=== PATIENT | male | born 1965 | race Caucasian/White ===

== ENCOUNTER 2019-05-17 00:42 | Emergency (ER) | payer SELFPAY ==
[2019-05-17 01:35] LABS: Protime INR 0.97
[2019-05-17 01:36] LABS: Absolute Lymphocytes (CBC) 2.3 K/uL (0.7-4.9); Basophils % 0.6 % (0-1.3); Hematocrit 42.6 % (39.6-49.0); Lymphocytes % 30.9 % (15.3-44.8); RBC Red Blood Cell Count 4.92 M/uL (4.33-5.43)
[2019-05-17 01:54] LABS: ALT/SGPT 141 U/L (12-78); AST/SGOT 72 U/L (15-37); Albumin 2.9 g/dL (3.4-5.0); Alkaline Phosphatase 89 U/L (45-117); BUN Blood Urea Nitrogen 14 mg/dL (7-18); Bicarbonate 26 mmol/L (21-32); Bilirubin Direct < 0.1 mg/dL (0-0.2); Bilirubin Total 0.3 mg/dL (0.2-1.0); Glucose Level 111 mg/dL (74-106); NT PRO-BNP 21 pg/mL (<125); Potassium 3.9 mmol/L (3.5-5.1); Protein, Total 6.6 g/dL (6.4-8.2); Sodium Level 142 mmol/L (136-145); Troponin (Emerg Dept Use Only) < 0.02 ng/mL (0.0-0.045)
--- NOTE | 2019-05-17 02:15 | ER ---
Nurse's Notes [facility] Name: Farhad Johnson Age: 54 yrs Sex: Male : 1965 Arrival Date: 05/17/2019 Time: 00:50 Bed 17 [employer] MD: Diagnosis: Neoplasm of uncertain behavior of rectum Presentation: 05/17 00:50 Presenting complaint: Patient states: "I am having shortness of breath because my jd3 stomach is hurting so bad. I have also been passing straight blood when I poop.". Transition of care: patient was not received from another setting of care. Onset of symptoms was May 15, 2019. Risk Assessment: Do you want to hurt yourself or someone else? Patient reports no desire to harm self or others. Initial Sepsis Screen: Does the patient meet any 2 criteria? No. Patient's initial sepsis screen is negative. Does the patient have a suspected source of infection? No. Patient's initial sepsis screen is negative. Care prior to arrival: None. 00:50 Method Of Arrival: Wheelchair jd3 00:50 Acuity: CARIDAD 3 jd3 Historical: - Allergies: 00:54 PENICILLINS; jd3 - Home Meds: 00:54 None [Active]; jd3 - PMHx: 00:54 None; jd3 - PSHx: 00:54 None; jd3 - Immunization history:: Adult Immunizations up to date. - Social history:: Smoking status: Patient uses tobacco products, smokes one-half pack cigarettes per day. - Ebola Screening: : Patient negative for fever greater than or equal to 101.5 degrees Fahrenheit, and additional compatible Ebola Virus Disease symptoms. Screenin:55 Abuse screen: Denies threats or abuse. Nutritional screening: No deficits noted. jd3 Tuberculosis screening: No symptoms or risk factors identified. Fall Risk Ambulatory Aid- None/Bed Rest/Nurse Assist (0 pts). Gait- Normal/Bed Rest/Wheelchair (0 pts) Mental Status- Oriented to own ability (0 pts). Total Dumas Fall Scale indicates No Risk (0-24 pts). Assessment: 01:10 General: Appears in no apparent distress. uncomfortable, Behavior is calm, cooperative, jb4 appropriate for age. Pain: Complains of pain in abdomen Pain does not radiate. Pain currently is 10 out of 10 on a pain scale. Quality of pain is described as crampy, Pain began 1 month ago. Neuro: Level of Consciousness is awake, alert, obeys commands, Oriented to person, place, time, situation. Cardiovascular: Patient's skin is warm and dry. Respiratory: Airway is patent Respiratory effort is even, unlabored, Respiratory pattern is regular, tachypnea. GI: Abdomen is round distended, Bowel sounds present X 4 quads. Abd is soft and non tender X 4 quads. Reports bloody stool, Patient currently denies nausea, vomiting. : No deficits noted. No signs and/or symptoms were reported regarding the genitourinary system. EENT: No deficits noted. No signs and/or symptoms were reported regarding the EENT system. Derm: Skin is intact, Skin is pink, warm \\T\\ dry. Musculoskeletal: Circulation, motion, and sensation intact. Range of motion: intact in all extremities. 02:29 Reassessment: Patient appears in no apparent distress at this time. Patient and/or jb4 family updated on plan of care and expected duration. Pain level reassessed. Patient is alert, oriented x 3, equal unlabored respirations, skin warm/dry/pink. PT given Fentynal, waiting for girlfriend to return prior to discharge. Verbalized understanding of d/c and follow up insctructions. Vital Signs: 00:54 BP 135 / 88; Pulse 99; Resp 23 S; Temp 97.9(O); Pulse Ox 97% on R/A; Weight 95.25 kg jd3 (R); Height 6 ft. 0 in. (182.88 cm) (R); Pain 5/10; 02:25 BP 133 / 87; Pulse 83; Resp 19; Pulse Ox 95% on R/A; jb4 00:54 Body Mass Index 28.48 (95.25 kg, 182.88 cm) jd3 ED Course: 00:50 Patient arrived in ED. jd3 00:54 Triage completed. jd3 00:55 Mathew Nuno MD is Attending Physician. 00:55 Arm band placed on. EKG completed in triage. Results shown to MD. jd3 00:55 Patient has correct armband on for positive identification. Bed in low position. Call [facility] light in reach. Side rails up X 1. Adult w/ patient. 01:10 Initial lab(s) drawn, by ks, sent to lab. Inserted saline lock: 20 gauge in right jb4 wrist, using aseptic technique. Blood collected. Missed attempt(s): 20 gauge in right forearm. Bleeding controlled, band aid applied, catheter tip intact. 01:16 Esequiel Go, RN is Primary Nurse. jb4 01:17 Troponin (emerg Dept Use Only) Sent. jb4 01:17 NT PRO-BNP Sent. jb4 01:17 Magnesium Sent. jb4 01:17 PT-INR Sent. jb4 01:17 LFT's Sent. jb4 01:17 CBC with Diff Sent. jb4 01:17 Basic Metabolic Panel Sent. jb4 01:17 XRAY Chest (1 view) Sent. jb4 01:18 X-ray completed. Portable x-ray completed in exam room. Patient tolerated procedure kw well. 01:20 XRAY Chest (1 view) In Process Unspecified. EDMS 01:26 Type And Screen Sent. jb4 02:11 Esequiel Queen MD is Referral Physician. 02:54 No provider procedures requiring assistance completed. IV discontinued, intact, jb4 bleeding controlled, No redness/swelling at site. Pressure dressing applied. Administered Medications: 02:30 Drug: fentaNYL (PF) 25 mcg {Note: Rass score of 1, blood pressure 133/87 prior to [facility] arrival.} Route: IVP; Site: right wrist; 02:56 Follow up: Response: No adverse reaction; Pain is decreased; RASS: Alert and Calm (0) [facility] Outcome: 02:13 Discharge ordered by MD. 02:54 Discharged to home via wheelchair, with significant other. [facility] 02:54 Condition: stable 02:54 Discharge instructions given to patient, significant other, Instructed on discharge instructions, follow up and referral plans. Demonstrated understanding of instructions, follow-up care. 02:57 Patient left the ED. jb4 Signatures: Dispatcher [employer] EDME Candis Singh James, BHAVNA HUGGINS jb4 Mathew Nuno MD MD gs Davies, Jonathon, RN RN jd3 Corrections: (The following items were deleted from the chart) 02:49 02:47 Discharged to home via wheelchair, with significant other, [facility] jb 02:49 02:47 Condition: stable [facility] jb 02:49 02:47 Discharge instructions given to patient, significant other, Instructed on jb4 discharge instructions, follow up and referral plans. Demonstrated understanding of instructions, follow-up care, jb4
--- NOTE | 2019-05-17 02:16 | EDPHYS ---
Physician Documentation [facility] Name: Farhad Johnson Age: 54 yrs Sex: Male : 1965 Arrival Date: 05/17/2019 Time: 00:50 Bed 17 Private MD: ED Physician Mathwe Nuno HPI: 05/17 02:07 This 54 yrs old Male presents to ER via Wheelchair with complaints of rectal bleeding. gs 02:07 The patient presents to the emergency department with bleeding from the rectum/anus, gs that is moderate. Onset: The symptoms/episode began/occurred 2 month(s) ago. Modifying factors: The symptoms are alleviated by nothing, The symptoms are aggravated by nothing. Associate signs and symptoms: Pertinent positives: lower GI bleeding, Pertinent negatives: abdominal pain, constipation, vomiting. The patient has experienced similar episodes in the past, a few times. The patient has not recently seen a physician. Historical: - Allergies: 00:54 PENICILLINS; jd3 - Home Meds: 00:54 None [Active]; jd3 - PMHx: 00:54 None; jd3 - PSHx: 00:54 None; jd3 - Immunization history:: Adult Immunizations up to date. - Social history:: Smoking status: Patient uses tobacco products, smokes one-half pack cigarettes per day. - Ebola Screening: : Patient negative for fever greater than or equal to 101.5 degrees Fahrenheit, and additional compatible Ebola Virus Disease symptoms. ROS: 02:07 All other systems are negative. gs 02:07 Neuro: Positive for weakness, general. gs Exam: 02:07 Constitutional: The patient appears alert, awake. gs 02:07 Head/Face: Normocephalic, atraumatic. Eyes: Pupils equal round and reactive to light, gs extra-ocular motions intact. Lids and lashes normal. Conjunctiva and sclera are non-icteric and not injected. Cornea within normal limits. Periorbital areas with no swelling, redness, or edema. ENT: Nares patent. No nasal discharge, no septal abnormalities noted. Tympanic membranes are normal and external auditory canals are clear. Oropharynx with no redness, swelling, or masses, exudates, or evidence of obstruction, uvula midline. Mucous membranes moist. Neck: Trachea midline, no thyromegaly or masses palpated, and no cervical lymphadenopathy. Supple, full range of motion without nuchal rigidity, or vertebral point tenderness. No Meningismus. Chest/axilla: Normal chest wall appearance and motion. Nontender with no deformity. No lesions are appreciated. Cardiovascular: Regular rate and rhythm with a normal S1 and S2. No gallops, murmurs, or rubs. Normal PMI, no JVD. No pulse deficits. Respiratory: Lungs have equal breath sounds bilaterally, clear to auscultation and percussion. No rales, rhonchi or wheezes noted. No increased work of breathing, no retractions or nasal flaring. Back: No spinal tenderness. No costovertebral tenderness. Full range of motion. Skin: Warm, dry with normal turgor. Normal color with no rashes, no lesions, and no evidence of cellulitis. MS/ Extremity: Pulses equal, no cyanosis. Neurovascular intact. Full, normal range of motion. Neuro: Awake and alert, GCS 15, oriented to person, place, time, and situation. Cranial nerves II-XII grossly intact. Motor strength 5/5 in all extremities. Sensory grossly intact. Cerebellar exam normal. Normal gait. 02:07 Abdomen/GI: Palpation: abdomen is soft and non-tender, in all quadrants, Rectal exam: mass, that is moderate-sized, with tenderness, anterior rectum friable. Vital Signs: 00:54 BP 135 / 88; Pulse 99; Resp 23 S; Temp 97.9(O); Pulse Ox 97% on R/A; Weight 95.25 kg jd3 (R); Height 6 ft. 0 in. (182.88 cm) (R); Pain 5/10; 02:25 BP 133 / 87; Pulse 83; Resp 19; Pulse Ox 95% on R/A; jb4 00:54 Body Mass Index 28.48 (95.25 kg, 182.88 cm) jd3 MDM: 01:28 Patient medically screened. 02:07 Differential diagnosis: hemorrhoids, tumor. Data reviewed: vital signs, nurses notes. gs Counseling: I had a detailed discussion with the patient and/or guardian regarding: the historical points, exam findings, and any diagnostic results supporting the discharge/admit diagnosis, lab results, the need for outpatient follow up, a general surgeon. Response to treatment: the patient's symptoms have mildly improved after treatment, and as a result, I will discharge patient. 05/17 00:57 Order name: Basic Metabolic Panel; Complete Time: 02:00 05/17 00:57 Order name: CBC with Diff; Complete Time: 02:00 05/17 00:57 Order name: LFT's; Complete Time: 02:00 05/17 00:57 Order name: Magnesium; Complete Time: 02:00 05/17 00:57 Order name: NT PRO-BNP; Complete Time: 02:00 05/17 00:57 Order name: PT-INR; Complete Time: 02:00 05/17 00:57 Order name: Troponin (emerg Dept Use Only); Complete Time: 02:00 05/17 00:57 Order name: XRAY Chest (1 view) 05/17 00:57 Order name: EKG; Complete Time: 00:59 05/17 00:57 Order name: Cardiac monitoring; Complete Time: 01:17 05/17 00:57 Order name: EKG - Nurse/Tech; Complete Time: :17 05/17 00:57 Order name: IV Saline Lock; Complete Time: 01:17 05/17 00:57 Order name: Type And Screen 05/17 00:57 Order name: Labs collected and sent; Complete Time: : 05/17 00:57 Order name: O2 Per Protocol; Complete Time: :17 05/17 00:57 Order name: O2 Sat Monitoring; Complete Time: 01:17 gs Administered Medications: 02:30 Drug: fentaNYL (PF) 25 mcg {Note: Rass score of 1, blood pressure 133/87 prior to [facility] arrival.} Route: IVP; Site: right wrist; 02:56 Follow up: Response: No adverse reaction; Pain is decreased; RASS: Alert and Calm (0) [facility] Disposition: 05/17/19 02:13 Discharged to Home. Impression: Neoplasm of uncertain behavior of rectum. - Condition is Stable. - Discharge Instructions: Colonoscopy, Colon Mass, Adult. - Medication Reconciliation Form, Thank You Letter, Antibiotic Education, Prescription Opioid Use form. - Follow up: Esequiel Queen MD; When: 2 - 3 days; Reason: Re-evaluation by your physician. Signatures: Dispatcher [employer] EDNH Esequiel Go RN RN jb4 Mathew Nuno MD MD gs Davies, Jonathon, RN RN jd3 Corrections: (The following items were deleted from the chart) 02:57 02:13 05/17/2019 02:13 Discharged to Home. Impression: Neoplasm of uncertain behavior jb4 of rectum. Condition is Stable. Forms are Medication Reconciliation Form, Thank You Letter, Antibiotic Education, Prescription Opioid Use. Follow up: Esequiel Queen; When: 2 - 3 days; Reason: Re-evaluation by your physician. gs
[2019-05-17] MEDS ORDERED: FENTANYL CITR 100 MCG/2 ML ONE (02:17)
--- NOTE | 2019-05-17 08:27 | RAD REPORT ---
EXAM DESCRIPTION: RAD - Chest Single View - 05/17/2019 1:19 am CLINICAL HISTORY: Shortness of breath, abdominal pain, smoking history COMPARISON: None. TECHNIQUE: AP portable chest image was obtained 0115 hours . FINDINGS: No focal mass or consolidation. Lung markings at each base are minimally prominent with th e baseline for the patient unknown. Heart and vasculature are normal. No measurable pleural effusion and no pneumothorax. No acute bony abnormality seen. No acute aortic findings suspected. IMPRESSION: No focal lung parenchymal process seen. Mild prominence of the lung markings at each base probably baseline for the patient.
--- NOTE | 2019-05-17 11:36 | EKG ---
Test Date: 2019-05-17 Test Time: 00:51:33 Apple Turner: EDNA MEASUREMENT RESULTS: Intervals: Rate: 102 FL: 142 QRSD: 80 QT: 332 QTc: 432 [place]: P: 58 FL: 142 QRS: 74 T: 58 INTERPRETIVE STATEMENTS: Sinus tachycardia Otherwise normal ECG No previous ECG available for comparison Electronically Signed On 05-17-19 11:34:37 CDT by Jeancarlos Us
== END 2019-05-17 02:57 | disposition home or self-care (01) ==
LOC: ER 00:42
DX: D37.5 Neoplasm of uncertain behavior of rectum (principal); Z88.0 Allergy status to penicillin; F17.210 Nicotine dependence, cigarettes, uncomplicated
CPT/HCPCS: 36415; 71045; 80048; 80076; 83735; 83880; 84484; 85025; 85610; 86850; 86900; 86901; 93005; 96374; 99284; J3010

== ENCOUNTER 2019-08-16 08:20 | Day surgery (SDC) | payer OTHER ==
--- OUTSIDE RECORDS SUMMARY | 2019-08-16 08:23 | XMS REPORT ---
:1965 [facility] Address [address] [place] [address] Dr. Giang. [address] [place] [address] Care Team Providers Name Role Phone Unavailable Unavailable Unavailable Problems This patient has no known problems. Allergies, Adverse Reactions, Alerts This patient has no known allergies or adverse reactions. Medications This patient has no known medications.
[2019-08-16] MEDS ORDERED: CIPROFLOXACIN 400mg IV 400 MG/200 ML BAG IV ONE (08:57)
[2019-08-16] MEDS ORDERED: Ringers Lactate 1,000 ML IV ONE (08:57)
[2019-08-16 09:01] LABS: Absolute Lymphocytes (CBC) 2.5 K/uL (0.7-4.9); Basophils % 0.5 % (0-1.3); Lymphocytes % 32.6 % (15.3-44.8); MPV 7.5 fL (7.6-11.3); RBC Red Blood Cell Count 4.94 M/uL (4.33-5.43)
[2019-08-16 09:08] LABS: Potassium 3.9 mmol/L (3.5-5.1)
[2019-08-16] MEDS ORDERED: NS 0.9% VIAL 20 ML ONE (09:23)
[2019-08-16] MEDS: LIDOCAINE 1% MPF 30 ML VIAL ONE ×2 (09:31→10:11)
[2019-08-16] MEDS: HEPARIN 5000 UNIT/ML 1 ML VIAL ONE ×2 (09:32→10:45)
[2019-08-16] MEDS ORDERED: FENTANYL CITR 100 MCG/2 ML ONE (09:58)
[2019-08-16] MEDS ORDERED: LIDOCAINE 2% MPF 5 ML VIAL ONE (09:58)
[2019-08-16] MEDS ORDERED: MIDAZOLAM HCL 2 MG/2 ML INJ ONE (09:58)
[2019-08-16] MEDS ORDERED: PROPOFOL 200 MG/20 ML VIAL IV ONE (09:58)
[2019-08-16] MEDS ORDERED: NA CIT/CITRIC AC 30 ML ORAL UDC ONE (10:17)
--- NOTE | 2019-08-16 11:12 | RAD REPORT ---
EXAM DESCRIPTION: RAD - Fluoroscopy <1 Hour - 08/16/2019 10:59 am CLINICAL HISTORY: Venous catheter insertion. PORT A CATH COMPARISON: <Comparisons> FINDINGS: Fluoroscopic imaging is submitted from placement of a venous catheter. Details of the pro cedure not available. Fluoroscopy time: 0.4 minutes
--- NOTE | 2019-08-16 11:26 | RAD REPORT ---
EXAM DESCRIPTION: RAD - Chest Single View - 08/16/2019 11:19 am CLINICAL HISTORY: s/p port a cath placement Chest pain. COMPARISON: Chest Single View dated 05/17/2019 FINDINGS: Portable technique limits examination quality. Right-sided port catheter its tip in the SVC. No pneumothorax present. The heart is normal in size. M ild interstitial lung opacities again seen, unchanged. IMPRESSION: No postprocedure pneumothorax.
[2019-08-16] MEDS ORDERED: HYDROCODONE/APAP 7.5/325 MG TAB ONE (11:54)
[2019-08-16] MEDS ORDERED: HYDROCODONE/APAP 7.5/325 MG TAB PO ONE (11:54)
[2019-08-16 13:57] VITALS: BP 121/82; TEMP 98.2; O2SAT 95
--- NOTE | 2019-08-16 21:22 | OP ---
Date of Procedure: 08/16/2019 Surgeon: Jaswinder Galvin MD Pigment Mixer: MARCIE Harris. Preoperative Diagnosis: Rectal cancer. Postoperative Diagnosis: Rectal cancer. Procedure: Placement of right IJ Port-A-Cath and interpretation of intraoperative fluoroscopy. Estimated Blood Loss: Minimal. Specimen: None. Findings: Normal anatomy. Anesthesia: MAC. Complications: None. Disposition: The patient tolerated the procedure in stable condition, taken to Recovery in good gene ral condition Procedure In Detail: Patient was brought to the OR and placed in supine position. MAC anesthesia wa s begun. Patient was prepped and draped in usual sterile fashion. Lidocaine 1% was infiltrated loca lly. An 18-gauge needle was used to access the right IJ vein. Guidewire was passed. Position was c onfirmed with fluoroscopy. A 3 cm incision made on the right anterior chest. Subcutaneous tissue di vided, pocket created. Tunneling device was used to tunnel the catheter between the 2 wounds. Seldi nger technique was used and tip of the catheter was placed in the SVC under fluoroscopy. Cut to appr opriate size, attached to the Port-A-Cath device. Port-A-Cath device was attached to the subcutaneou s tissue with 3-0 Vicryl. Catheter flushed with heparin, packed with heparin with good blood flow an d then 3-0 chromic used to approximate the subcutaneous tissue and close the skin. Sterile dressing was applied. Patient was awakened taken to Recovery in good general condition. Chest x-ray has been ordered. If okay, the patient will be discharged to home. Disposition: Home. Condition: Stable. Discharge Instructions: Resume home medications and diet. Activity as tolerated. No heavy lifting. Remove outer dressing in 2 days. Shower. Keep Steri-Strips on at all times. Follow up in my offi ce in 2 weeks. Follow up in the [facility]. Call for appointment. Tylenol No. 3 one tablet p.o. q.4 p.r.n. pain. /MODL Voice ID: [id number] Report ID: [id number]
== END 2019-08-16 12:17 | disposition home or self-care (01) ==
LOC: OR 08:20
PROVIDERS: ATTEND Surgery
PROC: 0JH60WZ Insertion of Totally Implantable Vascular Access Device into Chest Subcutaneous Tissue and Fascia, Open Approach (ICD-10-PCS; principal; 2019-08-16 10:30)
DX: C20 Malignant neoplasm of rectum (principal); F17.200 Nicotine dependence, unspecified, uncomplicated; Z88.0 Allergy status to penicillin
CPT/HCPCS: 85025; 80048; 36415; 71045; 76000; 36561; J2704; J1644 ×2; J2250; J3010; J7120; J0744; C1788

== ENCOUNTER 2020-08-05 11:47 | Emergency (ER) | payer OTHER ==
--- OUTSIDE RECORDS SUMMARY | 2020-08-05 11:50 | XMS REPORT | Continuity of Care Document ---
:1965 Author Organization [facility] Address 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 Procedures This patient has no known procedures. Encounters Start End Encounter Admission Attending Care Care Encounter Source Date/Time Date/Time Type Type Clinicians Facility Department ID 2020-02-13 2020-02-13 Zohaib MORALES [id number] 00:00:00 00:00:00 Only Unassigned, SANDEEP [id number] [place] [facility] [id number] 2019-11-26 2019-11-26 [facility] [id number] 11:00:00 11:00:00 t [facility] s [facility] Medicine Medicine Outpati ent Clinics 2019-07-30 2019-07-30 [facility] PERRI Black [id number] 07:46:52 23:59:00 Encounter lBas Burt [id number] [facility] [id number] 2019-07-12 2019[id number] 07:42:39 23:59:00 Encounter Blas Burt [id number] [facility] [id number] 2019-06-13 2019-06-13 Patient GIRISH Rodríguez [id number] 00:00:00 00:00:00 Outreach Taran Brooke [facility] [id number] [facility] [id number] 2019-06-08 2019-06-08 Office Yunior [facility] [id number] 14:48:52 15:03:52 Visit [facility] [id number] [facility] [id number] [facility] [id number] [facility] 408 Results This patient has no known results.
[2020-08-05] MEDS ORDERED: MORPHINE 4 MG/ML SYR ONE (13:08)
[2020-08-05] MEDS ORDERED: dexAMETHasone 4 MG/ML VIAL ONE (13:08)
--- NOTE | 2020-08-05 13:11 | RAD REPORT ---
EXAM DESCRIPTION: CT - Stone Protocol - 08/05/2020 12:46 pm CLINICAL HISTORY: right lower back/flank pain COMPARISON: No comparisons TECHNIQUE: Axial 3 mm thick images were obtained without oral or IV contrast. The [id number] span s the entirety of the system including uppermost abdomen and lung bases. All CT scans are performed using dose optimization technique as appropriate and may include automated exposure control or mA/KV adjustment according to patient size. FINDINGS: No hydronephrosis is present and no obstructing ureteral calculi. Patient has punctate tahir ateral calyx calculi under 3 mm in size. There is a 7 millimeter calcification right kidney that appe ars to be within the parenchyma and not at risk of obstruction. No suspicious renal masses. Isodense masses and pyelonephritis are not excluded on a stone protocol CT scan. No significant adrenal findin g. No urinary bladder suspicious finding. Imaged portions of the liver, spleen and pancreas show no suspicious findings on non-contrast imaging . No gallbladder or biliary tree abnormality identified. Moderate stool volume seen throughout most of the colon. Appendix is normal. No acute GI process iden tifiable. No mass or bulky lymphadenopathy. Small to moderate hiatal hernia is present with fat an approximatel y 15% of the stomach intrathoracic. A small fat only umbilical hernia present. Patient has bilateral fat only inguinal hernias. No free air, free fluid or inflammatory stranding. Disc and bony degenerative changes are present in the lower lumbar spine. No destructive process. IMPRESSION: No hydronephrosis, obstructing calculus or acute finding. Bilateral nonobstructing calyx calculi. Isodense masses and pyelonephritis are not excluded on stone protocol technique. Bilateral fat only inguinal hernias, small to moderate hiatal hernia and small fat only umbilical her rachel. No active process at the hernia sites.
--- NOTE | 2020-08-05 13:55 | EDPHYS ---
Physician Documentation [facility] Name: Farhad Johnson Age: 55 yrs Sex: Male : 1965 Arrival Date: 08/05/2020 Time: 11:49 Bed 14 Private MD: ED Physician Yogi Bethea HPI: 08/05 12:22 This 55 yrs old Male presents to ER via Ambulatory with complaints of Back cp Pain. 12:22 The patient presents with pain that is acute, with no known mechanism of injury. The cp symptoms are located in the right mid back and right low back. Onset: The symptoms/episode began/occurred yesterday. The pain radiates to the right leg. Associated signs and symptoms: Pertinent positives: numbness, Pertinent negatives: abdominal pain, chest pain, incontinence, urinary retention, weakness, saddle anesthesia. Historical: - Allergies: 11:54 PENICILLINS; ll1 - PMHx: 11:54 colon CA; ll1 - PSHx: 11:54 None; ll1 - Immunization history:: Flu vaccine is not up to date. - Social history:: Smoking status: Patient reports the use of cigarette tobacco products, smokes one-half pack cigarettes per day. ROS: 12:30 Back: Positive for pain at rest, pain with movement, of the right mid back and right cp low back. 12:30 Eyes: Negative for injury, pain, redness, and discharge. cp 12:30 Constitutional: Negative for body aches, chills, fever, poor PO intake. 12:30 Neck: Negative for pain with movement, pain at rest, stiffness. 12:30 Cardiovascular: Negative for chest pain, palpitations. 12:30 Respiratory: Negative for cough, shortness of breath, wheezing. 12:30 Abdomen/GI: Negative for abdominal pain, nausea, vomiting, and diarrhea, constipation, black/tarry stool, rectal bleeding, bowel incontinence. 12:30 : Negative for urinary symptoms, bladder incontinence, testicular pain 12:30 Neuro: Negative for altered mental status, dizziness, headache, weakness, saddle anesthesia. 12:30 All other systems are negative. Exam: 12:35 Constitutional: The patient appears in no acute distress, alert, awake, non-toxic, well cp developed, well nourished, uncomfortable. 12:35 Head/Face: Normocephalic, atraumatic. cp 12:35 Eyes: Periorbital structures: appear normal, Conjunctiva: normal, no exudate, no cp injection, Sclera: no appreciated abnormality, Lids and lashes: appear normal, bilaterally. 12:35 ENT: External ear(s): are unremarkable, Nose: is normal, Mouth: Lips: moist, Oral mucosa: moist, Posterior pharynx: Airway: no evidence of obstruction, patent. 12:35 Neck: ROM/movement: is normal, is supple, without pain, no range of motions limitations. 12:35 Chest/axilla: Inspection: normal, Palpation: is normal, no crepitus, no tenderness. 12:35 Cardiovascular: Rate: normal. 12:35 Respiratory: the patient does not display signs of respiratory distress, Respirations: normal, no use of accessory muscles, no retractions, labored breathing, is not present, Breath sounds: are clear throughout, no decreased breath sounds. 12:35 Abdomen/GI: Exam negative for discomfort, distension, guarding, Inspection: abdomen appears normal. 12:35 Back: pain, that is moderate, of the right mid back and right low back, ROM is painful, with all movement. 12:35 Skin: no rash present. 12:35 Neuro: Orientation: to person, place \T\ time. Mentation: is normal, Motor: moves all fours, strength is normal, Sensation: numbness, that is mild, of the right lateral upper leg, Gait: is steady, Deep tendon reflexes are 2+ (normal) in the right patellar, right Achilles, left patellar and left Achilles. Vital Signs: 11:54 BP 156 / 98; Pulse 87; Resp 18; Temp 98.2; Pulse Ox 92% ; Weight 106.59 kg; Height 6 ll1 ft. 0 in. (182.88 cm); Pain 10/10; 13:00 BP 148 / 103; Pulse 78; Resp 18; Pulse Ox 93% ; Pain 10/10; jl7 14:00 BP 141 / 92; Pulse 78; Resp 16 S; Pulse Ox 97% on R/A; aa5 11:54 Body Mass Index 31.87 (106.59 kg, 182.88 cm) ll1 MDM: 12:15 Patient medically screened. cp 13:54 Data reviewed: vital signs, nurses notes, radiologic studies, CT scan. cp 13:54 Differential diagnosis: ruptured disc, vertebral fracture, sciatica, spinal stenosis, cp cauda equina. Counseling: I had a detailed discussion with the patient and/or guardian regarding: the historical points, exam findings, and any diagnostic results supporting the discharge/admit diagnosis, radiology results, the need for outpatient follow up, a family practitioner, to return to the emergency department if symptoms worsen or persist or if there are any questions or concerns that arise at home. ED course: VSS. Pain markedly improved. Will discharge to home for continued monitoring. 08/05 12:22 Order name: CT Stone Protocol; Complete Time: 13:36 cp 08/05 12:22 Order name: IV; Complete Time: 13:10 cp Administered Medications: 13:05 Drug: morphine 4 mg Route: IVP; Site: left hand; jl7 14:13 Follow up: Response: No adverse reaction; Pain is decreased aa5 13:07 Drug: Decadron - Dexamethasone 10 mg Route: IVP; Site: left hand; jl7 14:13 Follow up: Response: No adverse reaction; Pain is decreased aa5 Disposition: 15:27 Co-signature as Attending Physician, Yogi Bethea MD. rn Disposition: 08/05/20 13:55 Discharged to Home. Impression: Low back pain, Radiculopathy, lumbar region. - Condition is Stable. - Discharge Instructions: Back Pain, Adult, Lumbosacral Radiculopathy, Back Exercises. - Prescriptions for Tylenol- Codeine #3 300-30 mg Oral Tablet - take 2 tablets by ORAL route every 6 hours As needed; 20 tablet. Medrol (Emmanuel) 4 mg Oral Tablets, Dose Pack - take 1 tablet by ORAL route as directed - follow package instructions; 1 packet. orphenadrine citrate 100 mg Oral Tablet Sustained Release - take 1 tablet by ORAL route 2 times per day As needed; 20 tablet. - Medication Reconciliation Form, Thank You Letter, Antibiotic Education, Prescription Opioid Use form. - Follow up: Private Physician; When: 2 - 3 days; Reason: Recheck today's complaints. - Problem is new. - Symptoms have improved. Signatures: Dispatcher [employer] EDYogi Castillo MD MD rn Calderon, Audri RN RN aa5 Ryan Lozano PA PA cp Leal, Jahala, RN RN jl7 Toirbio Chambers RN RN ll1 Corrections: (The following items were deleted from the chart) 14:13 12:22 Urine Dipstick-Ancillary ordered. cp aa5 14:13 13:55 08/05/2020 13:55 Discharged to Home. Impression: Low back pain; Radiculopathy, aa5 lumbar region. Condition is Stable. Forms are Medication Reconciliation Form, Thank You Letter, Antibiotic Education, Prescription Opioid Use. Follow up: Private Physician; When: 2 - 3 days; Reason: Recheck today's complaints. Problem is new. Symptoms have improved. cp
--- NOTE | 2020-08-05 13:55 | ER ---
Nurse's Notes [facility] Name: Farhad Johnson Age: 55 yrs Sex: Male : 1965 Arrival Date: 08/05/2020 Time: 11:49 Bed 14 Private MD: Diagnosis: Low back pain;Radiculopathy, lumbar region Presentation: 08/05 11:54 Chief complaint: Patient states: Noticed right outer thigh feels numb for 1 week. Right ll1 lower back pain that radiates down right leg for 2 days. No trauma or falls, just normal lifting. Coronavirus screen: Client denies travel out of the [place] in the last 14 days. At this time, the client does not indicate any symptoms associated with coronavirus-19. Ebola Screen: Patient denies travel to an Ebola-affected area in the 21 days before illness onset. Initial Sepsis Screen: Does the patient meet any 2 criteria? No. Patient's initial sepsis screen is negative. Does the patient have a suspected source of infection? Yes: Bone or joint infection. Risk Assessment: Do you want to hurt yourself or someone else? Patient reports no desire to harm self or others. Onset of symptoms was July 30, 2020. 11:54 Method Of Arrival: Ambulatory ll1 11:54 Acuity: CARIDAD 3 ll1 Historical: - Allergies: 11:54 PENICILLINS; ll1 - PMHx: 11:54 colon CA; ll1 - PSHx: 11:54 None; ll1 - Immunization history:: Flu vaccine is not up to date. - Social history:: Smoking status: Patient reports the use of cigarette tobacco products, smokes one-half pack cigarettes per day. Screenin:14 Abuse screen: Denies threats or abuse. Denies injuries from another. Nutritional jl7 screening: No deficits noted. Tuberculosis screening: No symptoms or risk factors identified. Fall Risk IV access (20 points). Total Dumas Fall Scale indicates No Risk (0-24 pts). Assessment: 12:55 General: Appears in no apparent distress. uncomfortable, Behavior is calm, cooperative, jl7 appropriate for age. Pain: Complains of pain in right low back Pain radiates to right leg Pain currently is 10 out of 10 on a pain scale. Neuro: Level of Consciousness is awake, alert, obeys commands, Oriented to person, place, time, situation. Cardiovascular: Patient's skin is warm and dry. Respiratory: Airway is patent Respiratory effort is even, unlabored, Respiratory pattern is regular, symmetrical. GI: Abdomen is round non-distended. Derm: Skin is pink, warm \\T\\ dry. Musculoskeletal: Reports pain in right low back. 13:52 Reassessment: Pt reports decreased urine output since being dx with rectal cancer, jl7 unable to provide urine sample at this time. Pain is decreased, states "I feel much better." Pain rated 2/10 at this time. ERP notified. 13:54 Reassessment: ERP at bedside discussing results and POC. jl7 14:10 Reassessment: Patient is alert, oriented x 3, equal unlabored respirations, skin aa5 warm/dry/pink. Patient states feeling better. Vital Signs: 11:54 BP 156 / 98; Pulse 87; Resp 18; Temp 98.2; Pulse Ox 92% ; Weight 106.59 kg; Height 6 ll1 ft. 0 in. (182.88 cm); Pain 10/10; 13:00 BP 148 / 103; Pulse 78; Resp 18; Pulse Ox 93% ; Pain 10/10; jl7 14:00 BP 141 / 92; Pulse 78; Resp 16 S; Pulse Ox 97% on R/A; aa5 11:54 Body Mass Index 31.87 (106.59 kg, 182.88 cm) ll1 ED Course: 10:00 Inserted saline lock: 20 gauge in left hand, using aseptic technique. jl7 11:49 Patient arrived in ED. ds1 11:54 Arm band placed on. ll1 11:56 Triage completed. ll1 12:14 Ryan Lozano PA is PHCP. cp 12:14 Yogi Bethea MD is Attending Physician. cp 12:26 Inés Begum RN is Primary Nurse. jl7 12:45 CT completed. Patient tolerated procedure well. Patient moved to CT via wheelchair. Patient moved back from CT. 12:46 CT Stone Protocol In Process Unspecified. EDMS 13:14 Patient has correct armband on for positive identification. Bed in low position. Call jl7 light in reach. Side rails up X 1. Pulse ox on. Sitter at bedside. 14:10 No provider procedures requiring assistance completed. IV discontinued, intact, aa5 bleeding controlled, No redness/swelling at site. Pressure dressing applied. Administered Medications: 13:05 Drug: morphine 4 mg Route: IVP; Site: left hand; jl7 14:13 Follow up: Response: No adverse reaction; Pain is decreased aa5 13:07 Drug: Decadron - Dexamethasone 10 mg Route: IVP; Site: left hand; jl7 14:13 Follow up: Response: No adverse reaction; Pain is decreased aa5 Outcome: 13:55 Discharge ordered by . bi 14:10 Discharged to home ambulatory, with significant other. aa5 14:10 Condition: improved 14:10 Discharge instructions given to patient, Instructed on discharge instructions, follow up and referral plans. medication usage, Demonstrated understanding of instructions, follow-up care, medications, Prescriptions given X 3. 14:13 Patient left the ED. aa5 Signatures: Dispatcher [employer] EDPA Ximena Ward ds1 Kenyatta Tse, RN RN aa5 Mali Rodriguez Corey, PA PA cp Leal, Jahala, RN RN jl7 Toribio Chambers RN RN ll1
[2020-08-05 14:59] VITALS: TEMP 98.2
[2020-08-05 15:01] VITALS: BP 148/103; O2SAT 93
== END 2020-08-05 14:13 | disposition home or self-care (01) ==
LOC: ER 11:47
DX: M54.16 Radiculopathy, lumbar region (principal); F17.210 Nicotine dependence, cigarettes, uncomplicated; Z88.0 Allergy status to penicillin; Z85.038 Personal history of other malignant neoplasm of large intestine
CPT/HCPCS: 76377; 74176; 96375; 96374; 99285; J1100

== ENCOUNTER 2020-08-06 06:30 | Emergency (ER) | payer OTHER ==
--- OUTSIDE RECORDS SUMMARY | 2020-08-06 06:31 | XMS REPORT | Continuity of Care Document ---
:1965 Author Organization [facility] t Address [address] [place] [address] Care Team Providers Name Role Phone Doctor [...] [facility] Allergies, Adverse Reactions, Alerts Allergy Allergy Status Severity Reaction(s) Onset Inactive Treating Comm ents Source Name Type Date Date Clinician PCN Adverse Active swelliong [facility] Medications This patient has no known medications. Procedures This patient has no known procedures. Encounters Start End Encounter Admission Attending Care Care Encounter Source Date/Time Date/Time Type Type Clinicians Facility Department ID 2020-02-13 2020-02-13 Zohaib MORAELS [id number] 00:00:00 00:00:00 Only Unassigned, SANDEEP [id number] [place] [facility] [id number] 2019-11-26 2019-11-26 [facility] [id number] [address] 11:00:00 11:00:00 t [facility] s [facility] Medicine Medicine Outpati ent Clinics 2019-07-30 2019-07-30 [facility] PERRI Black [id number] 07:46:52 23:59:00 Encounter Blas Burt [id number] [facility] [id number] 2019-07-12 2019-07-12 [facility] [id number] 07:42:39 23:59:00 Encounter Blas Burt [id number] [facility] [id number] 2019-06-13 2019-06-13 Patient GIRISH Rodríguez [id number] 00:00:00 00:00:00 Outreach Taran Brooke [facility] [id number] [facility] [id number] 2019-06-08 2019-06-08 Office Yunior [facility] [id number] 14:48:52 15:03:52 Visit [facility] [id number] [facility] [id number] [facility] [id number] [facility] 408 Results This patient has no known results.
[2020-08-06 06:56] LABS: Absolute Lymphocytes (CBC) 0.8 K/uL (0.7-4.9); Basophils % 0.8 % (0-1.3); Hematocrit 43.6 % (39.6-49.0); Lymphocytes % 8.5 % (15.3-44.8); MPV 7.6 fL (7.6-11.3)
[2020-08-06 07:02] LABS: Protime INR 1.01
--- NOTE | 2020-08-06 07:15 | RAD REPORT ---
EXAM DESCRIPTION: RAD - Chest Single View - 08/06/2020 6:51 am CLINICAL HISTORY: CHEST PAIN COMPARISON: August 2019 TECHNIQUE: AP portable chest image was obtained 08/06/2020 6:51 am . FINDINGS: Lung volumes are low. Right hemithorax is clear. Large air-filled cystic cavity in the med ial left upper lung field is visually more evident but may not actually have enlarged. Lower left lj g field is clear of acute finding. Heart and vasculature are normal. No measurable pleural effusion a nd no pneumothorax. No acute bony abnormality seen. No acute aortic findings suspected. IMPRESSION: No acute cardiopulmonary process. Air-filled cystic cavity medial left apex is more evident. This may be technical or represent a sligh t enlargement from prior imaging. This is not suspected to be new.
[2020-08-06 07:16] LABS: ALT/SGPT 27 U/L (12-78); AST/SGOT 15 U/L (15-37); Albumin 3.6 g/dL (3.4-5.0); Alkaline Phosphatase 87 U/L (45-117); BUN Blood Urea Nitrogen 20 mg/dL (7-18); Bicarbonate 24 mmol/L (21-32); Bilirubin Direct 0.2 mg/dL (0-0.2); Bilirubin Total 0.8 mg/dL (0.2-1.0); Glucose Level 115 mg/dL (74-106); Lipase 95 U/L (73-393); Potassium 4.3 mmol/L (3.5-5.1); Protein, Total 8.1 g/dL (6.4-8.2); Sodium Level 140 mmol/L (136-145); Troponin (Emerg Dept Use Only) < 0.02 ng/mL (0.0-0.045)
--- NOTE | 2020-08-06 07:45 | RAD REPORT ---
EXAM DESCRIPTION: CT - Angio Aorta For Dissection - 08/06/2020 7:24 am CLINICAL HISTORY: back pain, HTN;Chest pain COMPARISON: None. TECHNIQUE: Dynamically enhanced 3 mm thick images of the chest, abdomen, and upper pelvis were obtai keith during administration of approximately 150mL Isovue 370 IV contrast. Sagittal and coronal reconst ruction images were generated using MIP and reviewed. Exam utilizes a protocol to evaluate entire cou rse of the aorta. All CT scans are performed using dose optimization technique as appropriate and may include automated exposure control or mA/KV adjustment according to patient size. FINDINGS: Aorta is normal in diameter with no dissection or other acute aortic findings. Infrarenal aortic calcifications are present minimal in degree. Reconstruction images show no significant findin gs. No pulmonary artery abnormality. No cardiomegaly, pericardial thickening or pericardial effusion. No acute infiltrate or mass. No interstitial pulmonary edema of any significant degree. Patient has l arge air-filled thin-walled cystic cavities filling much of the left upper lobe from hilum to apex. N o associated mass. Minimal right apical cystic cavities present. There are scattered emphysema change s in the upper lung william. No pleural thickening, pleural effusion or pneumothorax. No abnormal mediastinal or hilar mass or lymphadenopathy seen. No chest wall mass or abnormal axillar y lymphadenopathy. Celiac, SMA and renal arteries show no suspicious findings. Inferior mesenteric artery is patent. Pat ient has a hiatal hernia present with approximately 15-20% of the stomach intrathoracic. Patient also has a small fat only umbilical hernia and bilateral fat filled inguinal hernias right greater than l eft. Solid abdominal viscera and bowel show no significant findings. No mass or abnormal lymphadeno keyla. No free air, free fluid or inflammatory stranding. No urinary bladder abnormality. IMPRESSION: Negative CT scan of the aorta. Large air-filled cystic cavities occupying much of the left upper lobe and to a much lesser degree in the apex of the right upper lobe. Scattered bulla and bleb in the upper and mid lung william. As detailed above, no acute or active chest, abdomen or pelvis process identifiable.
--- NOTE | 2020-08-06 07:59 | EDPHYS ---
Physician Documentation [facility] Name: Farhad Johnson Age: 55 yrs Sex: Male : 1965 Arrival Date: 08/06/2020 Time: 06:32 Bed 7 Private MD: ED Physician Yogi Bethea HPI: 08/06 06:47 This 55 yrs old Male presents to ER via EMS with complaints of headache, sob, rn Chest Pain. 06:47 The patient describes the headache as aching. Onset: The symptoms/episode rn began/occurred yesterday. Severity of symptoms: At its worst the pain was moderate, in the emergency department the pain has improved. The symptoms are alleviated by nothing. the symptoms are aggravated by nothing. The patient has not experienced similar symptoms in the past. Reports seen in ER yesterday for lower back pain that shoots down right leg, told pinched nerve, no recent injury. Given morphine yesterday, reports immediately began to feel headache, went home, noted blood pressure was high this AM, states girlfriend "panicked" and called 911. Reports headache is worse than chest pain/sob, but feels like is breathing differently. + smoker, does not feel sick/ill. No sick contacts. + dry cough. No hemoptysis. No hx of dvt/pe. . 06:48 The patient complains of pain to the top of head. rn Historical: - Allergies: 06:40 PENICILLINS; jb4 - Home Meds: 06:40 None [Active]; jb4 - PMHx: 06:40 COLON CA; jb4 - PSHx: 06:40 None; jb4 - Immunization history:: Adult Immunizations up to date. - Social history:: Smoking status: Patient reports the use of cigarette tobacco products, smokes one-half pack cigarettes per day, Patient uses street drugs, marijuana, Patient/guardian denies using alcohol. - Family history:: not pertinent. - Hospitalizations: : No recent hospitalization is reported. ROS: 06:47 Constitutional: Negative for fever, chills, and weight loss, Eyes: Negative for injury, rn pain, redness, and discharge, Neck: Negative for injury, pain, and swelling, Cardiovascular: Negative for palpitations, and edema, Respiratory: Negative for wheezing Abdomen/GI: Negative for abdominal pain, nausea, vomiting, diarrhea, and constipation, Back: + lower back pain MS/Extremity: Negative for injury and deformity, Skin: Negative for injury, rash, and discoloration, Neuro: Negative for headache, weakness, numbness, tingling, and seizure. Exam: 06:47 Constitutional: This is a well developed, well nourished patient who is awake, alert, rn and in no acute distress. Head/Face: Normocephalic, atraumatic. Eyes: Pupils equal round and reactive to light Cardiovascular: Regular rate and rhythm. No pulse deficits. Respiratory: Speaking full sentences. No increased work of breathing, no retractions or nasal flaring. Abdomen/GI: soft, non-tender Skin: Warm, dry MS/ Extremity: Pulses equal, no cyanosis. Neurovascular intact. Full, normal range of motion. Equal circumference. Neuro: Awake and alert, GCS 15, oriented to person, place, time, and situation. Cranial nerves II-XII grossly intact. Motor strength 5/5 in all extremities. Sensory grossly intact. Cerebellar exam normal. 06:51 ECG was reviewed by the Attending Physician. rn Vital Signs: 06:35 BP 157 / 94; Pulse 94; Resp 15; Pulse Ox 96% on R/A; Weight 106.59 kg (R); Height 6 ft. jb4 0 in. (182.88 cm) (R); Pain 0/10; 07:43 BP 130 / 90; Pulse 90; Resp 16; Temp 98.9(TE); Pulse Ox 95% on R/A; mh5 06:35 Body Mass Index 31.87 (106.59 kg, 182.88 cm) jb4 Brigette Coma Score: 07:57 Eye Response: spontaneous(4). Verbal Response: oriented(5). Motor Response: obeys rn commands(6). Total: 15. MDM: 06:34 Patient medically screened. rn 07:57 Differential diagnosis: cluster headache, hypertensive headache, migraine, tension rn headache, vasomotor headache. Data reviewed: vital signs, nurses notes, lab test result(s), EKG, radiologic studies, CT scan, plain films, and as a result, I will discharge patient. Counseling: I had a detailed discussion with the patient and/or guardian regarding: the historical points, exam findings, and any diagnostic results supporting the discharge/admit diagnosis, lab results, radiology results, the need for outpatient follow up, to return to the emergency department if symptoms worsen or persist or if there are any questions or concerns that arise at home, smoking cessation. Response to treatment: the patient's symptoms have markedly improved after treatment, and as a result, I will discharge patient. Special discussion: I discussed with the patient/guardian in detail that at this point there is no indication for admission to the hospital. It is understood, however, that if the symptoms persist or worsen the patient needs to return immediately for re-evaluation. ED course: No acute findings, had long discussion regarding cystic cavities in lungs and need for smoking cessation, will dc home as symptoms have improved on their own and BP now down to 130/90 with improvement of headache.. 08/06 06:35 Order name: CBC with Diff rn 08/06 06:35 Order name: Basic Metabolic Panel; Complete Time: 07:17 rn 08/06 06:35 Order name: Protime (+inr); Complete Time: 07:17 rn 08/06 06:35 Order name: Ptt, Activated; Complete Time: 07:17 rn 08/06 06:35 Order name: Troponin (emerg Dept Use Only); Complete Time: 07:17 rn 08/06 06:35 Order name: LFT's; Complete Time: 07:17 rn 08/06 06:35 Order name: IV Start; Complete Time: 06:43 rn 08/06 06:35 Order name: EKG; Complete Time: 06:36 rn 08/06 06:35 Order name: Lipase; Complete Time: 07:17 rn 08/06 06:35 Order name: XRAY Chest (1 view); Complete Time: 07:17 rn 08/06 06:35 Order name: CT Aorta for Dissection; Complete Time: 07:47 rn 08/06 06:36 Order name: CBC with Automated Diff; Complete Time: 07:00 EDMS 08/06 07:10 Order name: CREATININE WHOLE BLOOD; Complete Time: 07:17 EDMS 08/06 06:35 Order name: EKG - Nurse/Tech; Complete Time: 06:43 rn EC:51 Rate is 92 beats/min. Rhythm is regular. QRS [place] is Normal. [place] interval is normal. QRS rn interval is normal. QT interval is normal. No Q waves. T waves are Normal. No ST changes noted. Clinical impression: Normal ECG. Interpreted by me. Reviewed by me. Administered Medications: 07:56 Drug: Sperry 10 mg-325 mg 1 tabs {Note: RASS 0.} Route: PO; tw2 08:06 Follow up: Response: No adverse reaction tw2 Disposition: 08/06/20 07:59 Discharged to Home. Impression: Headache, Chest pain, unspecified. - Condition is Stable. - Discharge Instructions: Nonspecific Chest Pain, General Headache Without Cause, Hypertension, Steps to Quit Smoking, Smoking Hazards. - Medication Reconciliation Form, Thank You Letter, Antibiotic Education, Prescription Opioid Use form. - Follow up: Private Physician; When: As needed; Reason: Recheck today's complaints, Re-evaluation by your physician. - Problem is new. - Symptoms have improved. Signatures: Dispatcher [employer] EDMS Yogi Bethea MD MD rn Wise, Neeru RN RN tw2 Esequiel Go RN RN jb4 Corrections: (The following items were deleted from the chart) 06:50 06:47 This 55 yrs old Male presents to ER via EMS with complaints of Chest rn Pain. rn 08:07 07:59 08/06/2020 07:59 Discharged to Home. Impression: Headache; Chest pain, tw2 unspecified. Condition is Stable. Forms are Medication Reconciliation Form, Thank You Letter, Antibiotic Education, Prescription Opioid Use. Follow up: Private Physician; When: As needed; Reason: Recheck today's complaints, Re-evaluation by your physician. Problem is new. Symptoms have improved. rn
--- NOTE | 2020-08-06 07:59 | ER ---
Nurse's Notes [facility] Name: Farhad Johnson Age: 55 yrs Sex: Male : 1965 Arrival Date: 08/06/2020 Time: 06:32 Bed 7 Private MD: Diagnosis: Headache;Chest pain, unspecified Presentation: 08/06 06:35 Chief complaint: Patient states: I was having chest pain around 0100. I do not have any jb4 pain now. It was a pressure pain that started in the middle of my chest, and radiated to my right jaw. Coronavirus screen: Client denies travel out of the [place] in the last 14 days. At this time, the client does not indicate any symptoms associated with coronavirus-19. Ebola Screen: No symptoms or risks identified at this time. Initial Sepsis Screen: Does the patient meet any 2 criteria? HR > 90 bpm. Yes Does the patient have a suspected source of infection? No. Patient's initial sepsis screen is negative. Risk Assessment: Do you want to hurt yourself or someone else? Patient reports no desire to harm self or others. Onset of symptoms was August 06, 2020. Transition of care: patient was not received from another setting of care. 06:35 Method Of Arrival: EMS: [facility] 06:35 Acuity: CARIDAD 3 jb4 06:35 Care prior to arrival: Medication(s) given: ASA, 81 mg, x 4, IV initiated. 20 GA, in jb4 the left hand. Historical: - Allergies: 06:40 PENICILLINS; jb4 - Home Meds: 06:40 None [Active]; jb4 - PMHx: 06:40 COLON CA; jb4 - PSHx: 06:40 None; jb4 - Immunization history:: Adult Immunizations up to date. - Social history:: Smoking status: Patient reports the use of cigarette tobacco products, smokes one-half pack cigarettes per day, Patient uses street drugs, marijuana, Patient/guardian denies using alcohol. - Family history:: not pertinent. - Hospitalizations: : No recent hospitalization is reported. Screenin:41 Abuse screen: Denies threats or abuse. Nutritional screening: No deficits noted. jb4 Tuberculosis screening: No symptoms or risk factors identified. Fall Risk None identified. Assessment: 06:41 General: Appears in no apparent distress. comfortable, Behavior is calm, cooperative, jb4 appropriate for age. Pain: Complains of pain in mid-sternal area Pain radiates to right jaw Pain currently is 0 out of 10 on a pain scale. at worst was 6 out of 10 on a pain scale. Quality of pain is described as pressure, Pain began 0100 Is intermittent. Neuro: Level of Consciousness is awake, alert, obeys commands, Oriented to person, place, time, situation. Cardiovascular: Patient's skin is warm and dry. Rhythm is sinus rhythm. Respiratory: Airway is patent Respiratory effort is even, unlabored, Respiratory pattern is regular, symmetrical. GI: No signs and/or symptoms were reported involving the gastrointestinal system. : No signs and/or symptoms were reported regarding the genitourinary system. EENT: No signs and/or symptoms were reported regarding the EENT system. Derm: Skin is intact, Skin is pink, warm \T\ dry. Musculoskeletal: Circulation, motion, and sensation intact. Range of motion: intact in all extremities. 07:49 Reassessment: provider at bedside at this time. tw2 08:06 Reassessment: Patient appears in no apparent distress at this time. No changes from tw2 previously documented assessment. Patient and/or family updated on plan of care and expected duration. Pain level reassessed. Patient is alert, oriented x 3, equal unlabored respirations, skin warm/dry/pink. Patient states feeling better. Patient states symptoms have improved. Vital Signs: 06:35 BP 157 / 94; Pulse 94; Resp 15; Pulse Ox 96% on R/A; Weight 106.59 kg (R); Height 6 ft. jb4 0 in. (182.88 cm) (R); Pain 0/10; 07:43 BP 130 / 90; Pulse 90; Resp 16; Temp 98.9(TE); Pulse Ox 95% on R/A; mh5 06:35 Body Mass Index 31.87 (106.59 kg, 182.88 cm) jb4 Brigette Coma Score: 07:57 Eye Response: spontaneous(4). Verbal Response: oriented(5). Motor Response: obeys rn commands(6). Total: 15. ED Course: 06:32 Patient arrived in ED. cl3 06:34 Yogi Bethea MD is Attending Physician. rn 06:39 Triage completed. jb4 06:40 Arm band placed on right wrist. EKG completed in triage. Results shown to MD. jb4 06:41 Patient has correct armband on for positive identification. Placed in gown. Bed in low jb4 position. Call light in reach. Side rails up X 1. surveillance system monitor on. Pulse ox on. NIBP on. 06:41 Maintain EMS IV. Dressing intact. Good blood return noted. Site clean \T\ dry. Gauge \T\ brian 4 site: 20g LH. Patient maintains SpO2 saturation greater than 95% on room air. 06:43 Esequiel Go, RN is Primary Nurse. jb4 06:51 XRAY Chest (1 view) In Process Unspecified. EDMS 07:24 CT Aorta for Dissection In Process Unspecified. EDMS 07:49 Primary Nurse role handed off by Esequiel Go, RN tw2 07:49 Neeru Lynch, RN is Primary Nurse. tw2 08:06 No provider procedures requiring assistance completed. IV discontinued, intact, tw2 bleeding controlled, No redness/swelling at site. Pressure dressing applied. Administered Medications: 07:56 Drug: [place] 10 mg-325 mg 1 tabs {Note: RASS 0.} Route: PO; tw2 08:06 Follow up: Response: No adverse reaction tw2 Outcome: 07:59 Discharge ordered by MD. rn 08:06 Discharged to home ambulatory, with significant other. tw2 08:06 Condition: stable 08:06 Discharge instructions given to patient, significant other, Instructed on discharge instructions, follow up and referral plans. Demonstrated understanding of instructions, follow-up care. 08:07 Patient left the ED. tw2 Signatures: Dispatcher [employer] EDYogi Castillo MD MD rn Wise, Tara, RN RN tw2 Esequiel Go RN RN jb4 Martinez, Maria Kevin Najera 3
[2020-08-06] MEDS ORDERED: HYDROCODONE/APAP 10/325 TAB ONE (08:11)
[2020-08-06 08:15] VITALS: BP 130/90; TEMP 98.9; O2SAT 95
--- NOTE | 2020-08-07 07:35 | EKG ---
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
== END 2020-08-06 08:07 | disposition home or self-care (01) ==
LOC: ER 06:30
DX: R07.9 Chest pain, unspecified (principal); F17.210 Nicotine dependence, cigarettes, uncomplicated; Z88.0 Allergy status to penicillin; Z85.038 Personal history of other malignant neoplasm of large intestine
CPT/HCPCS: 93005; 85025; 80048; 36415; 85610; 82565; 80076; 85730; 84484; 83690; 71275; 74175; 71045; Q9967; 99285

== ENCOUNTER 2021-11-19 14:17 | Emergency (ER) | payer OTHER, SELFPAY ==
--- OUTSIDE RECORDS SUMMARY | 2021-11-19 14:21 | XMS REPORT | Continuity of Care Document ---
:1965 Author Organization [facility] t Address [address] [place] [address] Care Team Providers Name Role Phone [place] Attending Clinician Unavailable RICKI CLARKE Attending Clinician Unavailable RICKI CLARKE Attending Clinician Unavailable Kimber Attending Clinician Unavailable Ricki Clarke MD Attending Clinician Doctor Unassigned, Name Attending Clinician Unavailable Alta BETH Attending Clinician ALTA Attending Clinician Unavailable Darell MAIER Attending Clinician Unavailable Edwin THOMAS Attending Clinician Unavailable Mendy Rodríguez LMSW Attending Clinician Unavailable Dwaine Mojica MD Attending Clinician RICKI CLARKE Admitting Clinician Unavailable Edwin THOMAS Admitting Clinician Unavailable Payers Payer Name Policy Type Policy Number Effective Date Expiration Date Taty garcia [facility] [id number] [facility] [id number] [facility] [id number] 2019 2019 00:00:00 00:00:00 Problems Condition Condition Condition Status Onset Resolution Last Treating Co mments Source Name Details Category Date Date Treatment Clinician Date Rectal Rectal Disease Active 2018-10 [facility] adenocarci adenocarci 0-08 [facility] l[facility] noma noma 00:00: of (HCCode) (HCCode) 00 Medici n e Rectal Rectal Disease Active Overview: [facility] bleeding bleeding 8-22 [facility] 00:00: g of this of 00 note Medicin might be e different from the original. Added automatic ally from request for surgery [id number] Rectal Rectal Disease Active Overview: [facility] mass mass 05-24 [facility] 00:00: g of this of note Medicin might be e different from the original. Added automatic ally from request for surgery [id number] Allergies, Adverse Reactions, Alerts Allergy Allergy Status Severity Reaction(s) Onset Inactive Treating Comm ents Source Name Type Date Date Clinician [facility] Allergy Active High Hives [facility] DRUG Active High Dizziness Unive rs IN INGREDI 05-24 it[facility] of 00[facility]00: [place] 00 [facility] Propensi Active Hives Other [facility] in G ty to 05-24 reaction( Ione adverse 00:00: s): of reaction 00 Dizziness Medic in s to e drug PCN Adverse Active swelliong [facility] Social History Social Habit Start Date Stop Date Quantity Comments Source History [facility] Alcohol Binge of Medicine History of tobacco Cigarette Smoker [facility] use of Medicine History [facility] Alcohol Std Drinks of Med icine Alcohol intake 2021-02-25 2021-02-25 Ex-drinker [facility]ge 00:00:00 00:00:00 (finding) of Medicine Tobacco Comment 2021-01-07 2021-01-07 1-3 cigs a day [facility] 00:00:00 00:00:00 of Medicine Alcohol Comment 2021-01-07 2021-01-07 2000 quit [facility] [employer] [facility] 00:00:00 00:00:00 of Medicine Cigarettes smoked 2021-01-07 2021-01-07 [facility] current (pack per 00:00:00 00:00:00 of Solicore day) - Reported Tobacco use and 2021-01-07 2021-01-07 Never used [facility] [employer] l[facility] exposure 00:00:00 00:00:00 of Medicine History [facility] 2021-01-07 2021-01-07 1 [facility] ge Alcohol Frequency 00:00:00 00:00:00 of Solicore Sex Ass[birth year] [facility] [employer] [facility] 00:00:00 00:00:00 of Medicine Smoking Status Start Date Stop Date Source Current some day smoker 2021-01-07 00:00:00 [facility] Medications Ordered Filled Start Stop Current Ordering Indication Dosage Frequency Signature Comments Components Source Medication Medication Date Date Medication? Clinician (SIG) Name Name LISINOPRIL Yes Take by [place] maryana OR 02-25 mouth College 15:04: daily. of 57 Medicin e acetaminoph Yes [id number] 1{tbl} Take 1 [facility] en-codeine 02-06 9105 Tablet by Zhen robbins (TYLENOL 00:00: mouth of #3) 300-30 00 every 6 Medici n MG per hours as e tablet needed for Pain. gabapentin Yes 300mg Take 1 [facility] or (NEURONTIN) 02-05 capsule by Rekha liriano 300 MG 00:00: mouth 3 of capsule 00 times Medicin daily. e LISINOPRIL Yes Take by [facility] OR 01-07 mouth Ione 18:09: daily. of 12 Medicin e carvedilol Yes 3.125mg Take 3.125 [facility] (COREG) 4-07 mg by Ione 3.125 MG 00:00: mouth two of tablet 00 times Medicin daily. e Vital Signs Vital Name Observation Time Observation Value Comments Source WEIGHT 2021-01-29 05:02:00 110.6 kg HEIGHT 2021-01-27 08:19:00 182.9 cm WEIGHT 2021-01-27 08:19:00 101.424 kg HEIGHT 2021-01-26 08:52:00 182.9 cm WEIGHT 2021-01-26 08:52:00 105.235 kg Systolic blood 2021-02-26 13:13:00 138 mm[Hg] [facility] pressure Medicine Diastolic blood 2021-02-26 13:13:00 91 mm[Hg] [facility] pressure Medicine Heart rate 2021-02-26 13:13:00 83 /min [facility] Body temperature 2021-02-26 13:13:00 36.94 Jessie [facility] Body height 2021-02-26 13:13:00 185.4 cm [facility] Body weight 2021-02-26 13:13:00 [facility].235 [facility] 2021-02-26 13:13:00 30.61 kg/m2 [facility] WEIGHT 2021-01-29 05:02:00 110.6 kg HEIGHT 2021-01-27 08:19:00 182.9 cm WEIGHT 2021-01-27 08:19:00 101.424 kg HEIGHT 2021-01-26 08:52:00 182.9 cm WEIGHT 2021-01-26 08:52:00 105.235 kg Systolic blood 2021-01-07 18:06:00 158 mm[Hg] [facility] pressure Medicine Diastolic blood 2021-01-07 18:06:00 108 mm[Hg] [facility] Medicine Heart rate 2021-01-07 18:06:00 98 /min [facility] Body temperature 2021-01-07 18:06:00 36.78 Jessie [facility] Body height 2021-01-07 18:06:00 185.4 cm [facility] Body weight 2021-01-07 18:06:00 109.77 kg [facility] BMI 2021-01-07 18:06:00 31.93 kg/m2 [facility] Procedures This patient has no known procedures. Plan of Care Planned Activity Planned Date Details Comments Source Future Scheduled 2021-02-27 Screening for malignant [facility] Test 09:44:45 neoplasm of colon of Medicin e (procedure) [code = 413739069] Future Scheduled 2021-02-27 COVID-19 Vaccine (1) [facility] Test 09:44:45 [code = COVID-19 of Medicine Vaccine (1)] Future Scheduled 2021-02-27 TETANUS SHOT (ADULT) [facility] Test 09:44:45 [code = TETANUS SHOT of Medi cine (ADULT)] Future Scheduled 2021-02-27 Hepatitis C screening Ba [facility] Test 09:44:45 (procedure) [code = of Medic ine 277044443] Future Scheduled 2021-02-27 Human immunodeficiency B [facility] Test 09:44:45 virus screening of Medicine (procedure) [code = 204672377] Future Scheduled 2021-02-27 ZOSTER VACCINE (1 of 2) [facility] College Test 09:44:45 [code = ZOSTER VACCINE of Me dicine (1 of 2)] Future Scheduled 2021-02-27 FLU VACCINE > 6 MONTHS [facility] Test 09:44:45 [code = FLU VACCINE > 6 of M edicine MONTHS] Future Scheduled 2021-02-27 BMI FOLLOW UP PLAN [facility] r College Test 09:44:45 [code = BMI FOLLOW UP of Med icine PLAN] Future Scheduled 2021-02-26 FL ESOPHAGRAM COMPLETE 1 Occurrences [facility] College Test 08:32:02 [code = 50171-5] starting of Medicine 02/26/2021 until 08/29/2022 Future Scheduled 2021-02-26 FLANNERY PH EGD [code = 1 Occurrences [facility] College Test 08:32:02 09158] starting of Medicine 02/26/2021 until 08/29/2021 Future Scheduled 2021-02-26 ESOPHAGEAL 1 Occurrences [facility] Col [facility]ge Test 08:32:02 MANOMETRY/MOTILITY starting of Medici ne [code = NOCPT] 02/26/2021 until 08/29/2021 Future Scheduled Screening for malignant [facility] Test neoplasm of colon of Medicin e (procedure) [code = 276079032] Future Scheduled TETANUS SHOT (ADULT) [facility] College Test [code = TETANUS SHOT of Medi cine (ADULT)] Future Scheduled COVID-19 Vaccine (1) [facility] College Test [code = COVID-19 of Medicine Vaccine (1)] Future Scheduled Hepatitis C screening [facility] Test (procedure) [code = of Medic ine 868155325] Future Scheduled Human immunodeficiency [facility] College Test virus screening of Medicine (procedure) [code = 981786570] Future Scheduled ZOSTER VACCINE (1 of 2) [facility] Test [code = ZOSTER VACCINE of Me dicine (1 of 2)] Future Scheduled FLU VACCINE > 6 MONTHS [facility] College Test [code = FLU VACCINE > 6 of M edicine MONTHS] Future Scheduled BMI FOLLOW UP PLAN [facility] r College Test [code = BMI FOLLOW UP of Med icine PLAN] Encounters Start End Encounter Admission Attending Care Care Encounter Source Date/Time Date/Time Type Type Clinicians Facility Department ID 2021-10-28 Outpatient Char [facility] [id number] [facility] [address] 14:37:56 [facility] 2021-10-28 Outpatient Char [facility] [id number] [facility] 12:27:10 [facility]ana [id number] [facility] 2021-10-28 Outpatient Char [facility] [id number] 12:27:00 Alana 80980 [facility] 2021-10-28 Outpatient Char STREGINA [facility] [id number] 11:09:38 Alana 14029 [facility] 2021-08-01 Emergency [facility] [id number] Univers 17:52:03 [facility] 2021-07-11 Outpatient VANIA CLARKE Surgery [id number] [facility] 13:16:42 [facility] 2021-08-28 2021-08-28 ambulatory STLMLC [facility] [id number] [facility]00 [facility] 2021-02-25 2021-02-26 Office MARY CLARKE [id number] [facility] 14:33:56 13:31:14 Visit [facility] AMBULATOR [id number] College Y 0.2.7.2.686 [id number] [facility] 810 e 2021-02-25 2021-02-25 Outpatient VANIA CLARKE SLEJaved [id number] [facility] 00:00:00 00:00:00 [facility] 2021-01-26 2021-01-26 Outpatient EL [facility] [id number] [facility] 00:00:00 00:00:00 2021-01-26 2021-01-26 Outpatient EL [facility] [id number] [facility] 00:00:00 00:00:00 2021-01-26 2021-01-26 Outpatient EL [facility] [id number] [facility] 00:00:00 00:00:00 2021-01-26 2021-01-26 Outpatient SLEH [facility] [id number] [facility] 00:00:00 00:00:00 2021-01-26 2021-01-26 Outpatient [facility]H [facility] [id number] [facility] 00:00:00 00:00:00 2021-01-23 2021-01-23 Outpatient SLE SLE [id number] [facility] 00:00:00 00:00:00 2021-01-15 2021-01-15 Outpatient DMITRY Clarke [facility] [id number] 13:30:00 13:30:[address] [id number] [facility]) 2021-01-07 2021-01-07 Office Kimber MARY [id number] [facility] 12:47:11 15:02:43 Visit Santhosh SMITH 350.1.13.21 Hamida Munoz 2.7.2.686 [id number] [facility] 810 e 2020-11-03 2020-11-03 Outpatient STLMLC [facility] [id number] [facility]00 [facility] ent Clinics 2020-02-13 2020-02-13 Orders Doctor CARMEN [id number] 00:00:00 00:00:00 Only Unassigned, SANDEEP 350.1.13.10 [place] [facility] 4.2.7.2.686 [id number] 2019-11-26 2019-11-26 [facility] [id number] 11:00:00 11:00:00 [facility] 2019-07-30 2019-07-30 [facility] PERRI Holm [id number] 07:46:52 23:59:00 Encounter Sacha Burt 350.1.13.10 [facility] 4.2.7.2.686 [id number] 2019-07-30 2019-07-30 Outpatient Brisa HOLM [facility] ACO [id number] Univers 00:00:00 00:00:00 SACHA bruce [facility] 2019-07-20 2019-07-20 Outpatient Brisa MAIER [facility] [id number] Univers 00:00:00 00:00:00 ARMANDO bruce [facility] 2019-07-12 2019-07-12 Hospital PERRI Holm [id number] 07:42:39 23:59:00 Encounter Sacha Javed 350.1.13.10 BUILDING 4.2.7.2.686 [id number] 2019-07-12 2019-07-12 [email or web address] ACO [id number] Univers 00:00:00 00:00:00 SACHA bruce [facility] 2019-06-28 2019-06-28 Outpatient R WILLIAM [facility] [id number] [facility] 17:35:25 23:59:00 ORSVETATaty [facility] 2019-06-13 2019-06-13 Patient TANYA Rodríguez [id number] 00:00:00 00:00:00 Outreach Lucretiastarla Brooke [facility] 350.1.13.10 [facility] 4.2.7.2.686 [id number] 2019-06-08 2019-06-08 Office Yunior [facility] [id number] 14:48:52 15:03:52 Visit [facility] [id number] [facility] 4.2.7.2.686 [facility] [id number] [facility] 408 Results Test Description Test Time Test Comments Results Result Sour e Comments RAD, CHEST, 2 2021-02-01 Reason for VIEWS 7 Exam:->Z98.890 08:34:00 (ICD-10-CM) - Status [facility] post lung surgery, [facility] J44.9 (ICD-10-CM) - CENTERName: Rico LINDER pulmonary disease, : 1965 unspecified COPD Sex: type (HCCode M FI NAL REPORT EXAM: PA and lateral views of the chest. COMPARISON: Chest radiograph 01/29/2021 CLINICAL HISTORY: Z98.890 (ICD-10-CM) - Status post lung surgery, J44.9 (ICD-10-CM) - Chronic obstructive pulmonary disease, unspecified COPD type (HCCode , s/p L VATS, bullectomy FINDINGS: Lines/tubes: None. Lungs: The lungs are well inflated. Stable left proximal postsurgical changes and surgical clips in the medial left upper lobe. Subsegmental atelectasis in the left lower lobe, improved. Right lung is clear. Pleura: No pleural effusions. No pneumothorax. Heart and mediastinum: The cardiomediastinal silhouette is normal. Bones and soft tissues: No acute bony abnormalities. IMPRESSION: Status post left VATS with improved left lower lung field atelectasis. Signed: Roxanne Hayden MDReport Verified Date/Time: 02/26/2021 08:34:51 Reading Location: [facility] Reading Room [address] [place] [address] UE EXAM Surgical Pathology 3 Report 17:10:00 Case: [id number] Authorizing Provider: Santhosh Clarke Jr., Collected: 01/27/2021 04:20 PM Ordering Location: [facility] Received: 01/28/2021 09:11 AM PERIOPERATIVE SERVICES Pathologist: Savanna Andrews MD Specimen: Lung, Left Upper Lobe, LEFT UPPER LOBE WEDGE RESECTION A. LUNG, LEFT UPPER LOBE, WEDGE RESECTION:- MULTIPLE LUNG BULLAE- INTRAPARENCHYMAL HEMORRHAGE WITH HEMOSIDERIN LADEN MACROPHAGES- ONE BENIGN LYMPH NODE (0/1) Signing Pathologist Direct Phone Line: [phone] chhaya signed by Savanna Andrews MD on 02/02/2021 at 5:10 [id number], left upper lobeA. Received fresh labeled with the patient's name, medical record number and "lung, left upper lobe" is a 78 g, 14.8 x 7 x 2.5 cm lung wedge. The pleura displays multiple, deflated bullae ranging 2.7-6.5 cm. The remaining pleura is purple-pink and smooth. The specimen is serially sectioned to reveal a 0.5 cm well-circumscribed anthracotic, subpleural nodule that is 2.1 cm from the parenchymal margin. Remaining parenchyma is red and spongy. Car Manager sections (nodule entirely these are submitted.Section code:A1: Closest parenchymal margin to nodule, en faceA2: Anthracotic nodule, bisected, entirelyA3-A4: Car Manager of bullaeA5: Uninvolved parenchymaA6: Uninvolved parenchyma with pleuraChelsea KIRIT Hu PA ([facility])cmPerformed.[facility], Department of Pathology, [address] [place] [address], [facility], [facility] of [facility], [address] [place] [address], [facility], [facility] of [facility]ology, [address] [place] [address], RAD, CHEST, 1 2021-01-02 Reason for exam:->CT VIEW, NON DEPT 9 removal 12:52:00 [facility] 1965 Sex: M [facility] REPORT RAD, CHEST, 1 VIEW, NON DEPT INDICATION: CT removal COMPARISON: 11 hours prior FINDINGS: Portable frontal view of the chest. IMPRESSION: Support Lines: Thoracic drainage catheter has been removed. Lungs and pleura: Lungs are hypoinflated and without new consolidation. No significant residual pneumothorax.Heart and mediastinum: Stable contours. Stable surgical changes.Additional findings: None. Signed: JR Austin Robert MDReport Verified Date/Time: 01/29/2021 12:52:58 Reading Location: [facility] Radiology Reading Room , CHEST, 1 2021-01-02 Reason for VIEW, NON DEPT 9 exam:->s/p L VATS, 04:34:00 bullectomy, chest [facility] tube placementShould [facility] this be performed at [facility], the bedside?->Yes LAMAR WHITLOCK : 1965 Sex: M FI NAL REPORT RAD, CHEST, 1 VIEW, NON DEPT INDICATION: s/p L VATS, bullectomy, chest tube placement COMPARISON: Prior day's exam FINDINGS: Portable frontal view of the chest. IMPRESSION: Support Lines: No significant change. Lungs and pleura: Unchanged airspace and pleural opacities. No pneumothorax.Heart and mediastinum: Stable contours. Additional findings: None. Signed: Andres Cornelius Verified Date/Time: 01/29/2021 04:34:22 , CHEST, 1 2021-01-02 Reason for VIEW, NON DEPT 8 exam:->s/p L VATS, 05:56:00 bullectomy, chest [facility] tube placementShould [facility] this be performed at CENTERName: [facility], the bedside?->Yes LAMAR WHITLOCK : 1965 Sex: M NAL REPORT RAD, CHEST, 1 VIEW, NON DEPT INDICATION: s/p L VATS, bullectomy, chest tube placement COMPARISON: Exam from eight hours prior FINDINGS: Portable frontal view of the chest. IMPRESSION: Support Lines: Stable. Lungs and pleura: Slightly increasing bilateral parenchymal opacities suggestive of atelectasis or edema. No sizable effusion. No pneumothorax.Heart and mediastinum: Stable contours.Additional findings: None. Signed: Chinyere Clark [facility] Verified Date/Time: 01/28/2021 05:56:34 , CHEST, 1 2021-01-02 Reason for VIEW, NON DEPT 7 exam:->s/p left 18:44:00 VATS, bullectomy, [facility] chest tube [facility] placementShould this CENTERName: [facility], be performed at the LAMAR WHITLOCK bedside?->Yes : 1965 Sex: M NAL REPORT TECHNIQUE: Frontal view of the chest. INDICATION: 55-year-old man status post left VATS, bullectomy, and chest tube placement. COMPARISON: Chest radiograph 01/26/2021. FINDINGS: LINES/TUBES: Left chest tube in place. Additional indeterminate tube projects over the lower left neck and left mediastinum. LUNGS: Decreased aeration of the lungs. New left suprahilar airspace opacity. Mild bibasilar atelectasis. PLEURA: No pneumothorax or significant pleural effusion. HEART AND MEDIASTINUM: Cardiomediastinal silhouette is within normal limits. BONES AND SOFT TISSUES: No acute osseous abnormalities. Subcutaneous emphysema in the lower left chest. IMPRESSION:Lines/tube s and postsurgical changes as above. New left suprahilar airspace opacity likely represents postsurgical change/atelectasis. Aspiration cannot be excluded in the correct clinical setting. Signed: Mónica Bartholomew Verified Date/Time: 01/27/2021 18:44:25 Reading Location: [address] Consult Reading Room -COV2/RT-PCR ([facility]) 2021-01-27 04:41:00 Test Item Value Reference Range Interpretation Comme nts SARS-COV2/RT-PCR (test code = 4926245) Negative Not Detected, N egative, See external report for linked test SARS-COV-2 PERFORMING LAB (test code = [facility] 7500714) Negative result for this test determines that SARS-CoV-2 RNA was not present in the specimen above the Limit of Detection (LOD). However, Negative results do not preclude SARS-CoV-2 infection and should not be used as the sole basis for treatment or patient management decisions. Negative results mustbe combined with clinical observations, patient history, and epidemiological information. A false negative result may occur if a specimen is improperly collected, transported or handled. A false negative result should be considered if patient's recent exposures or clinical presentation indicate that COVID-19 (SARS-CoV-2) is likely and diagnostic tests for other causes of illness are negative. Re-testing should be considered in cases of suspected false negatives.The limit of detection for this assay is 100 copies/mL.This SARS CoV-2 test is a real-time RT-PCR test intended for the qualitative detection of nucleic acid from SARS-CoV-2 in a nasopharyngeal swab specimen collected from individuals susp ected of COVID-19 by their healthcare provider.This test has not been Food and Drug Administration (FDA) cleared or approved. This is a modified version of an approved Emergency Use Authorization (EUA) and is in the process of review by the FDA. Once authorized by the FDA, the issued EUA will be effective until the declaration that circumstances exist justifying the authorization of the emergency use of in vitro diagnostic tests for detection and/or diagnosis of COVID-19 is terminated under Section 564(b)(2) of the Act or the EUA is revoked under Section 564(g) of the Act.Testing was performed using the White SARS-CoV-2 assay.Fact Sheet for Healthcare Providers:https://www.Alitalia.white/moises/ BA_YJBX-SaI-9_HOZ_Iegh_Fmjcy_33-867448.pdfFact Sheet for Healthcare Patients:https://www.Alitalia.Operax alcira/moises/QT_SKEH-XyU-0_Gckyxbd_Fixw_Lfgbl_CK_44-416439R5.pdfPerforming Laboratory:[facility] [place] [address] RAD, CHEST, PA OR AP, 1 [id number] 16:27:00Reason for exam:->pre op eval [facility] CHINYERE : 1965 Sex: MFINAL REPORT History: Preoperative evaluation Comparison: None Findi ngs: There is hyperlucency in the left suprahilar region extending to the left lung apex suggestive of extensive bullous disease. There is associated vascular crowding and some lung parenchymal scarring just caudal to this. The right lung appears clear. No pleural effusions or pneumothorax. A right central venous port catheter is present, with its tip in the SVC region The heart shadow is normal in size. The thoracic aorta is mildly tortuous. Degenerative changes are present in the spine. Impression: No evidence of acute cardiopulmonary disease. Signed: Lamar Hannon MDReport Verified Date/Time: 01/26/2021 16:27:16 Reading Location: [facility] Radiology Reading Room COMPREHENSIVE METABOLIC [id number] 15:47:00 Test Item Value Reference Range Interpretation Comments TOTAL PROTEIN 7.9 gm/dL 6.0-8.3 Specimen sligh tly (BEAKER) (test code = hemoly zed 770) ALBUMIN (BEAKER) 4.2 g/dL 3.5-5.0 Specimen sl ightly (test code = 1145) hemolyzed ALKALINE PHOSPHATASE 83 U/L 40-150 (BEAKER) (test code = 346) BILIRUBIN TOTAL 0.8 mg/dL 0.2-1.2 Specimen sli ghtly (BEAKER) (test code = hemoly zed 377) SODIUM (BEAKER) (test 145 meq/L 136-145 code = 381) POTASSIUM (BEAKER) 4.9 meq/L 3.5-5.1 Specimen slightly (test code = 379) hemolyzed CHLORIDE (BEAKER) 107 meq/L 98-107 (test code = 382) CO2 (BEAKER) (test 29 meq/L 22-29 code = 355) BLOOD UREA NITROGEN 15 mg/dL 7-21 (BEAKER) (test code = 354) CREATININE (BEAKER) 1.02 mg/dL 0.57-1.25 Specimen slightly (test code = 358) hemolyzed GLUCOSE RANDOM 98 mg/dL 70-105 (BEAKER) (test code = 652) CALCIUM (BEAKER) 9.9 mg/dL 8.4-10.2 (test code = 697) AST (SGOT) (BEAKER) 38 U/L 5-34 H Specimen slightly (test code = 353) hemolyzed ALT (SGPT) (BEAKER) 69 U/L 6-55 H Specimen slightly (test code = 347) hemolyzed EGFR (BEAKER) (test 76 mL/min/1.73 ESTIMA ELLIOT GFR IS code = 1092) sq m NOT ACCURATE CREATININE CLEARANCE IN PREDICTING GLOMERULAR FILTRATION RATE . ESTIMATED GFR I S NOT APPLICABLE FOR DIALYSIS PATIEN TS. Api Architect ID - [id number] 15:42:00 Test Item Value Reference Range Interpretation Comments PARTIAL THROMBOPLASTIN TIME 28.9 seconds 22.5-36.0 (BEAKER) (test code = 760) PROTHROMBIN TIME/[id number] 15:41:00 Test Item Value Reference Range Interpretation Comments PROTIME (BEAKER) 13.5 seconds 11.9-14.2 (test code = 759) INR (BEAKER) (test 1.07 See_Comment [Automat ed message] code = 370) The system [employer] generated this result transmitted ref erence range: <=5.90. The reference range was not used to int erpret this result as normal/abnormal . Effective 02/28/2019: PT Reference Range ChangeNew: 11.9-14.2 Previous: 11.7- 14.7RECOMMENDED COUMADIN/WARFARIN INR THERAPY RANGESSTANDARD DOSE: 2.0-3.0 Includes: PROPHYLAXIS for venous thrombosis, systemic embolization; TREATMENT for venous thrombosis and/or pulmonary embolus.HIGH RISK: Target INR is2.5-3.5 for patients wiht mechanical heart valves.CBC (HEMOGRAM ONLY)2021-01-26 15:31:00 Test Item Value Reference Range Interpretation Comments WHITE BLOOD CELL COUNT (BEAKER) 4.9 K/ L 3.5-10.5 (test code = 775) RED BLOOD CELL COUNT (BEAKER) 5.54 M/ L 4.63-6.08 (test code = 761) HEMOGLOBIN (BEAKER) (test code = 16.0 GM/DL 13.7-17.5 410) HEMATOCRIT (BEAKER) (test code = 47.9 % 40.1-51.0 411) MEAN CORPUSCULAR VOLUME (BEAKER) 86.5 fL 79.0-92.2 (test code = 753) MEAN CORPUSCULAR HEMOGLOBIN 28.9 pg 25.7-32.2 (BEAKER) (test code = 751) MEAN CORPUSCULAR HEMOGLOBIN CONC 33.4 GM/DL 32.3-36.5 (BEAKER) (test code = 752) RED CELL DISTRIBUTION WIDTH 13.0 % 11.6-14.4 (BEAKER) (test code = 412) PLATELET COUNT (BEAKER) (test 277 K/CU MM 150-450 code = 756) MEAN PLATELET VOLUME (BEAKER) 9.2 fL 9.4-12.4 L (test code = 754) NUCLEATED RED BLOOD CELLS 0 /100 WBC 0-0 (BEAKER) (test code = 413)
[2021-11-19 14:41] LABS: Absolute Lymphocytes (CBC) 1.1 K/uL (0.7-4.9); Hematocrit 46.6 % (39.6-49.0); MPV 7.1 fL (7.6-11.3); RBC Red Blood Cell Count 5.33 M/uL (4.33-5.43)
[2021-11-19 14:49] LABS: Protime INR 0.97
[2021-11-19] MEDS ORDERED: FENTANYL CITR 100 MCG/2 ML ONE (15:02)
--- NOTE | 2021-11-19 15:08 | RAD REPORT ---
EXAM DESCRIPTION: CT - Head C Spine Cap W Freddy - 11/19/2021 2:41 pm CLINICAL HISTORY: fall from ladder, head, neck, chest and abdomen pain, forehead trauma, left rib ; known rectal CA COMPARISON: Angio Aorta For Dissection dated 08/06/2020 TECHNIQUE: Axial [address] head images were obtained. Axial [address] cervical spine images were obtaine d with sagittal and coronal reconstruction images reviewed. During dynamic enhancement of 100mL non-i onic contrast, axial 5 mm images of the chest, abdomen and pelvis were obtained. Biphasic technique p erformed of the abdomen and pelvis. All CT scans are performed using dose optimization technique as appropriate and may include automated exposure control or mA/KV adjustment according to patient size. FINDINGS: No intracranial hemorrhage, mass or edema. No midline shift or abnormal fluid collection. Mastoid air cells are clear. Patchy mucosal thickening in the paranasal sinuses. No fracture of the skull or skull base. Questionable nondisplaced nasal bone fracture noted. Correlation can be made wi th localized symptoms. CT cervical spine imaging shows normal height. Normal alignment of the vertebrae. Disc space narrowin g is present at all levels except C2-3. Degenerative disc disease, advanced for age, most prominent a t C5-6 and C6-7. No fracture or acute cervical vertebral finding. Uncovertebral joint hypertrophy cau ses a mild left foraminal stenosis at C5-6. No paraspinal mass or hematoma seen. Central canal detail is inherently limited. Concerns for traumatic disc herniation or traumatic cord injury can be furthe r addressed with MR imaging. CT chest shows no pneumothorax, pulmonary contusion or pleural fluid collection. Posterior dependent atelectasis is present. The patient has postsurgical change to the left apex. Numerous subpleural bul la and bleb noted in each apex. A 12 x 7 mm pleural abutting nodule is present lateral left upper lob e (series 602, image 31) an 11 x 15 mm pleural abutting nodule is present in the anterior right middl e lobe (series 602, image 39). Lateral right gutter pulmonary nodule 11 x 13 mm seen (series 602, hema ge 43). An 11 x 17 mm pleural abutting nodule in the posterior gutter on the right show central cavit ation (series 602, image 41). These are new from the August 2020 CT study. No mediastinal hematoma and the aorta and pulmonary arteries are unremarkable. No chest will mass or abnormal axillary findin g. No displaced rib fractures seen. No pathologic rib fracture or nondisplaced rib fracture confirmed . No traumatic injury to the liver. In the posterolateral right lobe an 18 x 18 mm round low-density ma ss is present. No other liver lesions seen. Portal vein is unremarkable. Spleen and pancreas show no suspicious findings. Gallbladder and biliary tree are unremarkable. Hiatal hernia is present with jazmine roximately 20% of the stomach intrathoracic. Small bilateral fat filled inguinal hernias are present. No bowel injury or significant finding. No free air, free fluid or abnormal stranding. No urinary bl adder abnormality. Lower lumbar degenerative disc changes are present. No acute compression fractures seen. No significant vascular finding. IMPRESSION: No hemorrhage, edema or acute intracranial finding. Patient may have a nondisplaced nasa l bone fracture. This can be correlated with localized symptoms. Advanced for age cervical spine degenerative change as detailed. No acute finding. No acute traumatic injury to the chest. No displaced rib fractures are present and no nondisplaced ri b fracture confirmed. No acute traumatic injury to the abdomen or pelvis. Patient has multiple pulmonary nodules new from August 2020. There is a small round low-density les ion in the liver. Given the rectal cancer history these are all concerning for metastatic disease. No significant CT Abdomen and Pelvis finding.
[2021-11-19 15:10] LABS: Albumin 3.4 g/dL (3.4-5.0); Bilirubin Direct 0.2 mg/dL (0-0.2); Bilirubin Total 0.9 mg/dL (0.2-1.0); Magnesium 2.5 mg/dL (1.8-2.4); Potassium 3.9 mmol/L (3.5-5.1); Protein, Total 7.6 g/dL (6.4-8.2); Troponin High Sensitivity 8.4 pg/mL (<58.9)
--- NOTE | 2021-11-19 15:49 | RAD REPORT ---
EXAM DESCRIPTION: RAD - Pelvis - 11/19/2021 3:05 pm CLINICAL HISTORY: fall from ladder COMPARISON: CT-RAD THERAPY FIELD PELVIS dated 08/07/2019; Head C Spine Cap W Con dated 11/19/2021 TECHNIQUE: AP imaging of the pelvis was obtained. FINDINGS: No fracture of the bony pelvis identified. Lower lumbar degenerative changes are present f urther detailed on separate imaging. No acute finding at either hip joint. Very minimal degenerative change seen along superior aspect of each acetabulum. Contrast is present in the bladder and ureters from prior CT study. IMPRESSION: No fracture or acute finding.
--- NOTE | 2021-11-19 15:51 | RAD REPORT ---
EXAM DESCRIPTION: RAD - Chest Single View - 11/19/2021 3:05 pm CLINICAL HISTORY: fall from ladder COMPARISON: Portable 08/06/2020 TECHNIQUE: AP portable chest image was obtained 11/19/2021 3:05 pm . FINDINGS: No pulmonary contusion or pneumothorax identifiable. Large cystic cavity in the left apex has been resected since the prior CT study. No large mass lesions seen. Heart and vasculature are nor mal. No measurable pleural effusion and no pneumothorax. No acute bony abnormality seen. Rib detail i s limited on portable imaging. No acute aortic findings suspected. IMPRESSION: No acute traumatic injury to the chest.
--- NOTE | 2021-11-19 15:52 | RAD REPORT ---
EXAM DESCRIPTION: RAD - Humerus Right - 11/19/2021 3:05 pm CLINICAL HISTORY: PAIN, trauma COMPARISON: No comparisons FINDINGS: No fracture is identified. There is no dislocation or periosteal reaction noted. No foreig n body or other soft tissue abnormality. IMPRESSION: Negative right humerus examination.
--- NOTE | 2021-11-19 15:58 | RAD REPORT ---
EXAM DESCRIPTION: RAD - Knee Left 3 View - 11/19/2021 3:05 pm CLINICAL HISTORY: PAIN COMPARISON: No comparisons FINDINGS: No fracture, dislocation or periosteal reaction.Trace amount of fluid is present in the divya int space. Medial and lateral compartment marginal spurring seen without significant loss in compartm ent height. Patella marginal spurs are present as well. Degenerative meniscal calcifications are pres ent. No soft tissue abnormality. IMPRESSION: Knee joint degenerative changes are present as detailed without acute or destructive fin ding. Clinical concerns for internal derangement or occult bony injury could be further assessed with MR im aging.
[2021-11-19] MEDS ORDERED: MORPHINE 4 MG/ML SYR ONE (16:02)
--- NOTE | 2021-11-19 16:03 | EDPHYS ---
Physician Documentation [facility] Name: Farhad Johnson Age: 56 yrs Sex: Male : 1965 Arrival Date: 11/19/2021 Time: 14:18 Bed 6 Private MD: ED Physician Suman Mercado HPI: 11/19 14:30 This 56 yrs old Male presents to ER via EMS with complaints of Fall Injury. cp 14:30 Details of fall: The patient fell from a height, from a ladder, approximately 12 feet, cp and struck chairs. 14:30 Onset: The symptoms/episode began/occurred just prior to arrival. Associated injuries: cp The patient sustained injury to the head, contusion, injury to the low back, pain, right hip, numbness, right upper arm, painful injury, left knee, painful injury. Historical: - Allergies: 14:27 PENICILLINS; vg1 - PMHx: 14:27 COLON CA; vg1 - Immunization history:: Client reports receiving the 2nd dose of the Covid vaccine. - Social history:: Smoking status: Patient reports the use of cigarette tobacco products, denies chronic smoking, but will smoke occasionally. - Immunization history: Last tetanus immunization: unknown. ROS: 14:35 Neck: Positive for pain at rest. cp 14:35 Constitutional: Negative for body aches, chills, fever, poor PO intake. cp 14:35 Cardiovascular: Negative for chest pain. 14:35 Respiratory: Negative for cough, shortness of breath, wheezing. 14:35 Abdomen/GI: Negative for vomiting, diarrhea, constipation. 14:35 Back: Positive for pain at rest, pain with movement. 14:35 MS/extremity: Positive for pain, of the right upper arm and left knee. 14:35 Neuro: Positive for numbness, of the right hip, Negative for altered mental status, loss of consciousness, syncope. 14:35 All other systems are negative. Exam: 14:40 Constitutional: The patient appears in no acute distress, alert, awake, cp non-diaphoretic, non-toxic, well developed, well nourished, uncomfortable. 14:40 Head/Face: Normocephalic, atraumatic. cp 14:40 Eyes: Periorbital structures: appear normal, Pupils: equal, round, and reactive to light and accomodation, Extraocular movements: intact throughout, Lids and lashes: appear normal, bilaterally. 14:40 ENT: External ear(s): are unremarkable, Nose: External nose: tender, bridge of nose, Nasal septum: is midline, Mouth: Lips: moist, Oral mucosa: moist, Posterior pharynx: Airway: no evidence of obstruction, patent. 14:40 Neck: C-spine: Back board [employer] C-collar placed in ED. 14:40 Chest/axilla: Inspection: normal, Palpation: crepitus, is not appreciated, tenderness, is not appreciated. 14:40 Cardiovascular: Rate: normal, Rhythm: regular, Edema: is not appreciated, JVD: is not appreciated. 14:40 Respiratory: the patient does not display signs of respiratory distress, Respirations: normal, no use of accessory muscles, no retractions, labored breathing, is not present, Breath sounds: are clear throughout, no decreased breath sounds, no stridor, no wheezing. 14:40 Abdomen/GI: Inspection: abdomen appears normal, Bowel sounds: active, all quadrants, Palpation: abdomen is soft and non-tender, in all quadrants. 14:40 Back: pain, that is moderate, of the lumbar area, ROM is painful, with all movement. 14:40 Musculoskeletal/extremity: Extremities: grossly normal except: noted in the right upper arm: pain, tenderness, There is no evidence of decreased ROM, deformity, noted in the left knee: pain, tenderness, no evidence of decreased ROM, deformity. 14:40 Neuro: Orientation: to person, place \T\ time. Mentation: is normal, Motor: moves all fours, strength is normal, Sensation: numbness, that is mild, of the lateral right hip. Vital Signs: 14:24 Pulse 96; Resp 14; Pulse Ox 98% ; Weight 104.33 kg; Height 6 ft. 0 in. (182.88 cm); vg1 Pain 10/10; 15:09 BP 131 / 68; Pulse 85; Resp 12; Pulse Ox 94% ; vg1 15:18 Temp 97.8; vg1 16:00 BP 156 / 84; Pulse 76; Resp 14; Pulse Ox 96% on R/A; vg1 14:24 Body Mass Index 31.19 (104.33 kg, 182.88 cm) vg1 Lenox Coma Score: 14:29 Eye Response: spontaneous(4). Verbal Response: oriented(5). Motor Response: obeys vg1 commands(6). Total: 15. Trauma Score (Adult): 14:29 Eye Response: spontaneous(1); Verbal Response: oriented(1); Motor Response: obeys vg1 commands(2); Systolic BP: > 89 mm Hg(4); Respiratory Rate: 10 to 29 per min(4); Brigette Score: 15; Trauma Score: 12 MDM: 14:28 Patient medically screened. cp 15:00 Differential diagnosis: closed head injury, contusion, fracture, multiple trauma, cp sprain, strain. 16:03 Data reviewed: vital signs, nurses notes, lab test result(s), EKG, radiologic studies, cp CT scan, plain films. 16:03 Test interpretation: by ED physician or midlevel provider: ECG, plain radiologic cp studies. Counseling: I had a detailed discussion with the patient and/or guardian regarding: the historical points, exam findings, and any diagnostic results supporting the discharge/admit diagnosis, lab results, radiology results, to return to the emergency department if symptoms worsen or persist or if there are any questions or concerns that arise at home. ED course: VSS. Radiology studies, labs, EKG reviewed. Pain improved. Discussed results of chest CT showing pulmonary masses and patient instructed on need for urgent f/u. Will discharge to home for continued monitoring. 11/19 14:24 Order name: Basic Metabolic Panel; Complete Time: 15:30 cp 11/19 15:30 Interpretation: Normal except: CL 110; GLUC 113; GFR 64. cp 11/19 14:24 Order name: CBC with Diff; Complete Time: 15:30 cp 11/19 15:30 Interpretation: Normal except: MPV 7.1; EOSINOPHIL % 5.0; Reviewed. cp 11/19 14:24 Order name: LFT's; Complete Time: 15:30 cp 11/19 14:24 Order name: Magnesium; Complete Time: 15:30 cp 11/19 14:24 Order name: PT-INR; Complete Time: 15:30 cp 11/19 14:24 Order name: Troponin HS; Complete Time: 15:30 cp 11/19 14:24 Order name: XRAY Chest (1 view); Complete Time: 16:00 cp 11/19 14:24 Order name: XRAY Pelvis; Complete Time: 16:00 cp 11/19 14:24 Order name: CT Traumagram (Head C Spine CAP W Con); Complete Time: 15:30 cp 11/19 14:24 Order name: XRAY Humerus RIGHT; Complete Time: 16:00 cp 11/19 14:24 Order name: XRAY Knee LEFT 3 view; Complete Time: 16:00 cp 11/19 14:45 Order name: CREATININE WHOLE BLOOD; Complete Time: 15:30 EDMS 11/19 14:24 Order name: Cardiac monitoring; Complete Time: 14:44 cp 11/19 14:24 Order name: EKG - Nurse/Tech; Complete Time: 14:44 cp 11/19 14:24 Order name: IV Saline Lock; Complete Time: 14:44 cp 11/19 14:24 Order name: Labs collected and sent; Complete Time: 14:44 cp 11/19 14:24 Order name: O2 Per Protocol; Complete Time: 14:44 cp 11/19 14:24 Order name: O2 Sat Monitoring; Complete Time: 14:44 cp Administered Medications: 15:06 Drug: fentaNYL (PF) 25 mcg Route: IVP; Site: left forearm; vg1 16:06 Follow up: Response: No adverse reaction; Pain is unchanged, physician notified vg1 15:38 CANCELLED (Physician Discretion): NS 0.9% 500 ml IV at bolus once cp 16:02 Drug: morphine 4 mg Route: IVP; Site: left forearm; vg1 17:01 Follow up: Response: No adverse reaction; Marked relief of symptoms vg1 Disposition Summary: 11/19/21 16:03 Discharge Ordered Location: Home cp Problem: new cp Symptoms: have improved cp Condition: Stable cp Diagnosis - Fall on and from ladder, initial encounter cp - Fracture of nasal bones cp - Low back pain cp - Pain in right upper arm cp - Pain in left knee cp Followup: cp - With: Private Physician - When: 1 - 2 days - Reason: Recheck today's complaints Discharge Instructions: - Discharge Summary Sheet cp - Acute Back Pain, Adult cp - Fall Prevention in the Home, Adult cp - Musculoskeletal Pain cp - Back Exercises cp - Nasal Fracture cp Forms: - Medication Reconciliation Form cp - Thank You Letter cp - Antibiotic Education cp - Prescription Opioid Use cp Prescriptions: - Cyclobenzaprine 10 mg Oral Tablet - take 1 tablet by ORAL route every 8 hours As needed; 20 tablet; Refills: 0, cp Product Selection Permitted - Naprosyn 500 mg Oral Tablet - take 1 tablet by ORAL route 2 times per day take with food; 20 tablet; Refills: cp 0, Product Selection Permitted Addendum: 11/21/2021 00:02 Co-signature as Attending Physician, Suman Mercado MD I agree with the assessment and k dr plan of care. Signatures: Dispatcher [employer] EDNY Suman Mercado MD MD kdr Ryan Lozano PA PA Irena Lara, RN RN vg1 Corrections: (The following items were deleted from the chart) 11/19 15:38 15:37 NS 0.9% 500 ml IV at bolus once ordered. cp cp 11/20 13:03 11/19 14:35 Neuro: Negative for altered mental status, loss of consciousness, cp cp 11/20 13:52 11/19 14:40 Neuro: Orientation: to person, place \T\ time. Mentation: is normal, Motor: cp moves all fours, strength is normal, cp
--- NOTE | 2021-11-19 16:03 | ER ---
Nurse's Notes [facility] Name: Farhad Johnson Age: 56 yrs Sex: Male : 1965 Arrival Date: 11/19/2021 Time: 14:18 Bed 6 Private MD: Diagnosis: Fall on and from ladder, initial encounter;Fracture of nasal bones;Low back pain;Pain in right upper arm;Pain in left knee Presentation: 11/19 14:24 Chief complaint: EMS states: pt fell off ladder approximately 12 feet high and fell vg1 onto chairs; pt was found laying on chairs on left side of body; pt c/o right hip numbness, lower back pain, and Left knee pain. EMS states pt did not have LOC. Coronavirus screen: Vaccine status: Patient reports receiving the 2nd dose of the covid vaccine. Ebola Screen: Patient negative for fever greater than or equal to 101.5 degrees Fahrenheit, and additional compatible Ebola Virus Disease symptoms. Initial Sepsis Screen: Does the patient meet any 2 criteria? No. Patient's initial sepsis screen is negative. Does the patient have a suspected source of infection? No. Patient's initial sepsis screen is negative. Risk Assessment: Do you want to hurt yourself or someone else? Patient reports no desire to harm self or others. Onset of symptoms was November 19, 2021. 14:24 Method Of Arrival: EMS: [facility] vg1 14:24 Acuity: CARIDAD 2 vg1 14:31 Care prior to arrival: None. Mechanism of Injury: Fall from ladder approximately 12 vg1 feet. Trauma event details: Injury occurred in the [facility]. Triage Assessment: 14:27 General: Appears in no apparent distress. uncomfortable, Behavior is calm, cooperative. vg1 Pain: Complains of pain in lower back pain and Left knee and head Pain currently is 10 out of 10 on a pain scale. Pain began 30 min ago. EENT: No signs and/or symptoms were reported regarding the EENT system. Neuro: Level of Consciousness is awake, alert, obeys commands, Oriented to person, place, time, situation, Teacher Aide are equal bilaterally Moves all extremities. Cardiovascular: Patient's skin is warm and dry. Respiratory: Airway is patent Respiratory effort is even, unlabored, Respiratory pattern is regular, Breath sounds are clear bilaterally. GI: No signs and/or symptoms were reported involving the gastrointestinal system. : No signs and/or symptoms were reported regarding the genitourinary system. Derm: Skin is pink, warm \T\ dry. Musculoskeletal: Circulation, motion, and sensation intact. Trauma Activation: Physician: ED Physician; Name: Jess; Notified At: ; Arrived At: Physician: General Surgeon; Name: ; Notified At: ; Arrived At: Physician: Radiology; Name: ; Notified At: ; Arrived At: Physician: Respiratory; Name: ; Notified At: ; Arrived At: Physician: Lab; Name: ; Notified At: ; Arrived At: Historical: - Allergies: 14:27 PENICILLINS; vg1 - PMHx: 14:27 COLON CA; vg1 - Immunization history:: Client reports receiving the 2nd dose of the Covid vaccine. - Social history:: Smoking status: Patient reports the use of cigarette tobacco products, denies chronic smoking, but will smoke occasionally. - Immunization history: Last tetanus immunization: unknown. Screenin:29 Abuse screen: Denies threats or abuse. Nutritional screening: No deficits noted. vg1 Tuberculosis screening: No symptoms or risk factors identified. 14:32 Fall Risk Fall in past 12 months (25 points). No secondary diagnosis (0 pts). IV access vg1 (20 points). Ambulatory Aid- None/Bed Rest/Nurse Assist (0 pts). Gait- Normal/Bed Rest/Wheelchair (0 pts) Mental Status- Oriented to own ability (0 pts). Total Dumas Fall Scale indicates No Risk (0-24 pts). Primary Survey: 14:29 NO uncontrolled hemorrhage observed. A: The patient is alert. Breathing/Chest: vg1 Respiratory pattern: regular, Respiratory effort: spontaneous, Breath sounds: clear, Chest inspection: symmetrical rise and fall of the chest. Circulation: Skin color: pink. Disability Alert. Exposure/Environment: All clothing and personal items were removed. There is no evidence of uncontrolled external bleeding. A warming method has been applied: A warm blanket has been provided to the patient. 14:39 Reassessment Airway Airway Patent Oxygen No O2 Breathing/Chest Respiratory pattern vg1 Regular Respiratory effort Spontaneous Breath sounds Clear Chest inspection Symmetrical Circulation Color Mcmillin Disability Alert. Secondary Survey: 14:29 Gastrointestinal: Abdomen is soft, Palpation No deficit noted. : No signs and/or vg1 symptoms were reported regarding the genitourinary system. Musculoskeletal: Circulation, motion, and sensation intact. Assessment: 14:32 Reassessment: SEE TRIAGE; PT PLACE IN C COLLAR IN ED. vg1 15:14 Reassessment: Pt placed on O2; pulse ox 88%; now 92% 2 L NC. Provider notified. vg1 16:15 Reassessment: Patient appears in no apparent distress at this time. Patient and/or vg1 family updated on plan of care and expected duration. Pain level reassessed. Patient is alert, oriented x 3, equal unlabored respirations, skin warm/dry/pink. 16:33 Reassessment: Provider at bedside reporting results to pt. vg1 Vital Signs: 14:24 Pulse 96; Resp 14; Pulse Ox 98% ; Weight 104.33 kg; Height 6 ft. 0 in. (182.88 cm); vg1 Pain 10/10; 15:09 BP 131 / 68; Pulse 85; Resp 12; Pulse Ox 94% ; vg1 15:18 Temp 97.8; vg1 16:00 BP 156 / 84; Pulse 76; Resp 14; Pulse Ox 96% on R/A; vg1 14:24 Body Mass Index 31.19 (104.33 kg, 182.88 cm) vg1 Brigette Coma Score: 14:29 Eye Response: spontaneous(4). Verbal Response: oriented(5). Motor Response: obeys vg1 commands(6). Total: 15. Trauma Score (Adult): 14:29 Eye Response: spontaneous(1); Verbal Response: oriented(1); Motor Response: obeys vg1 commands(2); Systolic BP: > 89 mm Hg(4); Respiratory Rate: 10 to 29 per min(4); [place] Score: 15; Trauma Score: 12 ED Course: 14:18 Patient arrived in ED. ds1 14:22 Ryan Lozano PA is PHCP. cp 14:22 Suman Mercado MD is Attending Physician. cp 14:24 Irena Waldrop, BHAVNA is Primary Nurse. vg1 14:27 Triage completed. vg1 14:27 Arm band placed on. vg1 14:29 Patient has correct armband on for positive identification. Placed in gown. Bed in low vg1 position. Side rails up X2. 14:29 Patient maintains SpO2 saturation greater than 95% on room air. vg1 14:30 Inserted saline lock: 20 gauge in left forearm, using aseptic technique. Blood vg1 collected. 14:33 Thermoregulation: warm blanket given to patient. vg1 14:41 CT Traumagram (Head C Spine CAP W Con) In Process Unspecified. EDMS 15:05 XRAY Chest (1 view) In Process Unspecified. EDMS 15:05 XRAY Pelvis In Process Unspecified. EDMS 15:05 XRAY Humerus RIGHT In Process Unspecified. EDMS 15:05 XRAY Knee LEFT 3 view In Process Unspecified. EDMS 16:59 No provider procedures requiring assistance completed. IV discontinued, intact, vg1 bleeding controlled, No redness/swelling at site. Pressure dressing applied. Administered Medications: 15:06 Drug: fentaNYL (PF) 25 mcg Route: IVP; Site: left forearm; vg1 16:06 Follow up: Response: No adverse reaction; Pain is unchanged, physician notified vg1 15:38 CANCELLED (Physician Discretion): NS 0.9% 500 ml IV at bolus once cp 16:02 Drug: morphine 4 mg Route: IVP; Site: left forearm; vg1 17:01 Follow up: Response: No adverse reaction; Marked relief of symptoms vg1 Outcome: 16:03 Discharge ordered by MD. cp 17:00 Discharged to home via wheelchair. vg1 17:00 Condition: good 17:00 Discharge instructions given to patient, Instructed on discharge instructions, follow up and referral plans. medication usage, Demonstrated understanding of instructions, follow-up care, medications, Prescriptions given X 2. 17:01 Patient's length of stay was not longer than 2 hours. vg1 17:01 Patient left the ED. vg1 Signatures: Dispatcher [employer] EDND Ximena Ward ds1 Ryan Lozano PA PA cp Garcia, Victoria, RN RN vg1 Corrections: (The following items were deleted from the chart) 15:16 15:14 Reassessment: Pt placed on O2; pulse ox 88%; now 92% 2 L NC vg1 vg1
[2021-11-19 18:07] VITALS: BP 131/68; O2SAT 94
[2021-11-19 18:08] VITALS: TEMP 97.8
== END 2021-11-19 17:01 | disposition home or self-care (01) ==
LOC: ER 14:17
DX: S02.2XXA Fracture of nasal bones, initial encounter for closed fracture (principal); M79.621 Pain in right upper arm; M25.562 Pain in left knee; M54.50 Low back pain, unspecified; W11.XXXA Fall on and from ladder, initial encounter; F17.210 Nicotine dependence, cigarettes, uncomplicated; Z88.0 Allergy status to penicillin; Z85.038 Personal history of other malignant neoplasm of large intestine
CPT/HCPCS: 36415; 70450; 71045; 71260; 72125; 72170; 74177; 80048; 80076; 82565; 83735; 84484; 85025; 85610; 96374; 96375; 99284; J3010; Q9967

== ENCOUNTER 2022-06-17 12:21 | Observation (INO) | payer OTHER ==
--- OUTSIDE RECORDS SUMMARY | 2022-06-17 12:24 | XMS REPORT | Continuity of Care Document ---
:1965 Author Organization [facility] t Address [address] [place] [address] Care Team Providers Name Role Phone Alana Pardo Primary Care Physician Alana Pardo Attending Clinician Unavailable Dov Garcia Attending Clinician Unavailable SANTHOSH CLARKE Attending Clinician Unavailable Alana Pardo Attending Clinician Doctor Unassigned, [place] Attending Clinician Unavailable SANTHOSH CLARKE Attending Clinician Unavailable Santhosh Clarke Attending Clinician Unavailable Santhosh Clarke MD Attending Clinician Sacha Holm MD Attending Clinician SACHA HOLM Attending Clinician Unavailable ARMANDO MAIER Attending Clinician Unavailable DIONNE THOMAS Attending Clinician Unavailable Taran Rodríguez LMSW Attending Clinician Unavailable Carmen Mojica MD Attending Clinician SANTHOSH CLARKE Admitting Clinician Unavailable DIONNE THOMAS Admitting Clinician Unavailable Payers Payer Name Policy Type Policy Number Effective Date Expiration Date Lance garcia [facility] [id number] [facility] [id number] [facility] [id number] 2019 2019 00:00:00 00:00:00 Problems Condition Condition Condition Status Onset Resolution Last Treating Co mments Source Name Details Category Date Date Treatment Clinician Date Lung Lung Disease Active [facility] Rectal Rectal Disease Active 2018-10 Univers adenocarci adenocarci 0-08 it y of nompraveen noma 00:00: [place] 00 Medical Branch Rectal Rectal Disease Active Overview: Univer s bleeding bleeding 05-24 Formattin ity of 00:00: g of this note Medical might be Branch different from the original. Added automatic ally from request for surgery [id number] Rectal Rectal Disease Active Overview: Univer s mass mass 05-24 Formattin ity of 00:00: g of this note Medical might be Branch different from the original. Added automatic ally from request for surgery [id number] Allergies, Adverse Reactions, Alerts Allergy Allergy Status Severity Reaction(s) Onset Inactive Treating Comm ents Source Name Type Date Date Clinician PENICILL Allergy Active High Hives [facility] Center Penicill Propensi Active Hives dizziness [facility] 4 [facility] adverse 00:00: Medical reaction 00 Center s Penicill Propensi Active Hives Univer s in ty to 05-24 ity of adverse 00:00: [place] reaction 00 Medical s to Branch drug PENICILL DRUG Active High Dizziness Unive rs IN INGREDI 05-24 ity of 00:00: [place] 00 Medical Branch Penicill Propensi Active Hives Other [facility] in G ty to 05-24 reaction( [place] adverse 00:00: s): of reaction 00 Dizziness Medic in s to e drug PCN Adverse Active swelliong Common Reaction [facility] Social History Social Habit Start Date Stop Date Quantity Comments Source History [facility] ge of Alcohol Binge Medicine History of tobacco Cigarette Smoker [facility] of use Medicine History [facility] ge of Alcohol Std Drinks Medici ne Alcohol intake 2021-01-28 2021-01-28 Ex-drinker [facility] 00:[facility]00 00:00:00 (finding) [facility] Tobacco use and 2021-01-26 2021-01-[address] [facility] [facility] kelance exposure 00:00:00 00:00:00 [facility] Tobacco Comment 2021-01-26 2021-01-26 3-4 [facility]ige[facility]tes [facility] 00:00:00 per day [facility] Alcohol Comment 2021-01-07 2021-01-07 2000 quit [facility] Co llege of 00:00:00 00:00:00 Medicine History SDOH 2021-01-07 2021-01-07 1 [facility] Colle ge of Alcohol Frequency 00:00:00 00:00:00 Medicin e Cigarettes smoked 2019-05-24 2019-05-24 Univers ity of current (pack per 00:00:00 00:00:00 ) - Reported Branch Sex [birth year] [facility] Melania christopher 00:00:00 00:00:00 [facility] Smoking Status Start Date Stop Date Source Current every day smoker 2021-01-26 00:00:00 [facility] Current some day smoker 2021-01-07 00:00:00 [facility] Medications Ordered Filled Start Stop Current Ordering Indication Dosage Frequency Signature Comments Components Source Medication Medication Date Date Medication? Clinician (SIG) Name Name LISINOPRIL Yes Take by [facility] or OR 02-25 mouth [place] 15:04: daily. of 57 Medicin e acetaminoph Yes [id number] 1{tbl} Take 1 [facility] en-codeine 02-06 9105 Tablet by Zhen robbins (TYLENOL 00:00: mouth of #3) 300-30 00 every 6 Medici n MG per hours as e tablet needed for Pain. gabapentin Yes 300mg Take 1 [facility] (NEURONTIN) 5-06 capsule by Co llege 300 MG 00:00: mouth 3 of capsule 00 times Medicin daily. e lisinopriL Yes 10mg QD Take [address] (PRINIVIL,Z 4-29 by mouth Luke s ESTRIL) 10 18:39: daily. Medic al MG tablet Center carvediloL Yes 3.125mg QD Take 3.[address] (COREG) 4-29 mg by [facility] 3.125 MG 18:39: mouth Medical tablet 49 daily. Center LISINOPRIL Yes Take by [facility]l or OR 4-07 mouth College 18:09: daily. of 12 Medicin e carvedilol Yes 3.125mg Take 3.125 Terrence (COREG) 4-07 mg by [place] 3.125 MG 00:00: mouth two of tablet 00 times Medicin daily. e furosemide Yes [id number] 20mg Take 1 Univers 20 mg 1-18 tablet by ity of tablet 00:00: mouth [place] 00 every Medical morning. Branch furosemide Yes [id number] 20mg Take 1 Univers 20 mg 1-18 tablet by ity of tablet 00:00: mouth [place] 00 every Medical morning. Branch furosemide Yes [id number] 20mg Take 1 Univers 20 mg 1-18 tablet by ity of tablet 00:00: mouth [place] 00 every Medical morning. Branch furosemide Yes [id number] 20mg Take 1 Univers 20 mg 1-18 tablet by ity of tablet 00:00: mouth [place] 00 every Medical morning. Branch acetaminoph 2018-10 Yes [id number] 1{tbl} Take 1 Univers en-codeine 0-08 tablet by ity of (TYLENOL-CO 00:00: mouth [place] DEINE #3) 00 every 4 Medical 300-30 mg (four) Branch tablet hours as needed for Pain (scale 4-6). acetaminoph 2018-10 Yes [id number] 1{tbl} Take 1 Univers en-codeine 0-08 tablet by ity of (TYLENOL-CO 00:00: mouth [place] DEINE #3) 00 every 4 Medical 300-30 mg (four) Branch tablet hours as needed for Pain (scale 4-6). acetaminoph 2018-10 Yes [id number] 1{tbl} Take 1 Univers en-codeine 0-08 tablet by ity of (TYLENOL-CO 00:00: mouth [place] DEINE #3) 00 every 4 Medical 300-30 mg (four) Branch tablet hours as needed for Pain (scale 4-6). acetaminoph 2018-10 Yes [id number] 1{tbl} Take 1 Univers en-codeine 0-08 tablet by ity of (TYLENOL-CO 00:00: mouth [place] DEINE #3) 00 every 4 Medical 300-30 mg (four) Branch tablet hours as needed for Pain (scale 4-6). gabapentin 2019-0 Yes [id number] 300mg Take 1 Univers 300 mg 9-06 capsule by ity of capsule 00:00: mouth 3 [place] 00 (three) Medical times Branch daily. ibuprofen 2019-0 Yes [id number] 800mg Take 1 Univers 800 mg 9-06 tablet by ity of tablet 00:00: mouth [place] 00 every 6 Medical (six) Branch hours as needed for Pain (scale 4-6). gabapentin 2019-0 Yes [id number] 300mg Take 1 Univers 300 mg 9-06 capsule by ity of capsule 00:00: mouth 3 [place] 00 (three) Medical times Branch daily. ibuprofen 2019-0 Yes [id number] 800mg Take 1 Univers 800 mg 9-06 tablet by ity of tablet 00:00: mouth [place] 00 every 6 Medical (six) Branch hours as needed for Pain (scale 4-6). gabapentin 2019-0 Yes [id number] 300mg Take 1 Univers 300 mg 9-06 capsule by ity of capsule 00:00: mouth 3 00 (three) Medical times Branch daily. ibuprofen 2019-0 Yes [id number] 800mg Take 1 Univers 800 mg 9-06 tablet by ity of tablet 00:00: mouth [place] 00 every 6 Medical (six) Branch hours as needed for Pain (scale 4-6). gabapentin 2019-0 Yes [id number] 300mg Take 1 Univers 300 mg 9-06 capsule by ity of capsule 00:00: mouth 3 [place] 00 (three) Medical times Branch daily. ibuprofen 2019-0 Yes [id number] 800mg Take 1 Univers 800 mg 9-06 tablet by ity of tablet 00:00: mouth [place] 00 every 6 Medical (six) Branch hours as needed for Pain (scale 4-6). traMADol 50 2019-0 Yes [id number] 50mg Take 1 Univers mg tablet 8-19 tablet by ity o f 00:00: mouth [place] 00 every 6 Medical (six) Branch hours as needed for Pain (scale 4-6) or Pain (scale 7-10). traMADol 50 2019-0 Yes [id number] 50mg Take 1 Univers mg tablet 8-19 tablet by ity o f 00:00: mouth [place] 00 every 6 Medical (six) Branch hours as needed for Pain (scale 4-6) or Pain (scale 7-10). traMADol 50 2018-0 Yes [id number] 50mg Take 1 Univers mg tablet 8-19 tablet by ity o f 00:00: mouth [place] 00 every 6 Medical (six) Branch hours as needed for Pain (scale 4-6) or Pain (scale 7-10). traMADol 50 2018-0 Yes [id number] 50mg Take 1 Univers mg tablet 8-19 tablet by ity o f 00:00: mouth [place] 00 every 6 Medical (six) Branch hours as needed for Pain (scale 4-6) or Pain (scale 7-10). Vital Signs Vital Name Observation Time Observation Value Comments Source WEIGHT 2021-01-29 05:02:00 110.6 kg HEIGHT 2021-01-27 08:19:00 182.9 cm WEIGHT 2021-01-27 08:19:00 101.424 kg HEIGHT 2021-01-26 08:52:00 182.9 cm WEIGHT 2021-01-26 08:52:00 105.235 kg Systolic blood 2021-02-26 13:13:00 138 mm[Hg] [facility] Medicine Diastolic blood 2021-02-26 13:13:00 91 mm[Hg] [facility] Heart rate 2021-02-26 13:13:00 83 /min [facility] Body temperature 2021-02-26 13:13:00 36.94 Jessie [facility] Body height 2021-02-26 13:13:00 185.4 cm [facility] Body weight 2021-02-26 13:13:00 105.235 kg [facility] BMI 2021-02-26 13:13:00 30.61 kg/m2 [facility] WEIGHT 2021-01-29 05:02:00 110.6 kg HEIGHT 2021-01-27 08:19:00 182.9 cm WEIGHT 2021-01-27 08:19:00 101.424 kg HEIGHT 2021-01-26 08:52:00 182.9 cm WEIGHT 2021-01-26 08:52:00 105.235 kg Diastolic blood 2021-01-07 18:06:00 108 mm[Hg] [facility] Heart rate 2021-01-07 18:06:00 98 /min [facility] Body temperature 2021-01-07 18:06:00 36.78 Jessie [facility] Body height 2021-01-07 18:06:00 185.4 cm [facility] Body weight 2021-01-07 18:06:00 109.77 kg [facility] BMI 2021-01-07 18:06:00 31.93 kg/m2 [facility] Systolic blood 2021-01-07 18:06:00 158 mm[Hg] [facility] pressure Medicine Procedures Procedure Date / Time Performed Performing Clinician Sourc e REFERRAL- 2022-04-19 05:01:00 Doctor Unassigned, No [facility] [place] REQUEST/RESPONSE Name Medical Branch REFERRAL- 2022-03-08 05:01:00 Doctor Unassigned, No [facility] [place] REQUEST/RESPONSE Name Medical Branch Plan of Care Planned Activity Planned Date Details Comments Source Future Scheduled 2029-05-28 Screening for malignant [facility] Test 00:00:00 neoplasm of colon Medical Ce nter (procedure) [code = 600525745] Future Scheduled 2029-05-28 Screening for malignant [facility] Test 00:00:00 neoplasm of colon Medical Ce nter (procedure) [code = 467117462] Future Scheduled 2022-06-03 INFLUENZA VACCINE (#1) [facility] Test 00:00:00 [code = INFLUENZA Medical Ce nter VACCINE (#1)] Future Scheduled 2021-10-[address] [facility] Test 00:00:00 (12+) [code = Medical Center DEPRESSION SCREENING (12+)] Future Scheduled 2021-02-27 Screening for malignant [facility] Test 09:44:45 neoplasm of colon of Medicin e (procedure) [code = 080797625] Future Scheduled 2021-02-27 COVID-19 Vaccine (1) [facility] Test 09:44:45 [code = COVID-19 of Medicine Vaccine (1)] Future Scheduled 2021-02-27 TETANUS SHOT (ADULT) [facility] Test 09:44:45 [code = TETANUS SHOT of Medi cine (ADULT)] Future Scheduled 2021-02-27 Hep[address] C screening [facility] Test 09:44:45 (procedure) [code = of Medic ine 762769148] Future Scheduled 2021-02-27 Human immunodeficiency B [facility] Test 09:44:45 virus screening of Medicine (procedure) [code = 828167125] Future Scheduled 2021-02-27 ZOSTER VACCINE (1 of 2) [facility] Test 09:44:45 [code = ZOSTER VACCINE of Me dicine (1 of 2)] Future Scheduled 2021-02-27 FLU VACCINE > 6 MONTHS [facility] Test 09:44:45 [code = FLU VACCINE > 6 of M edicine MONTHS] Future Scheduled 2021-02-27 BMI FOLLOW UP PLAN [facility] Test 09:44:45 [code = BMI FOLLOW UP of Med icine PLAN] Future Scheduled 2021-02-26 FL ESOPHAGRAM COMPLETE 1 Occurrences [facility] Test 08:32:02 [code = 59565-7] starting of Medicine 02/26/2021 until 08/29/2022 Future Scheduled 2021-02-26 FLANNERY PH EGD [code = 1 Occurrences [facility] Test 08:32:02 23734] starting of Medicine 02/26/2021 until 08/29/2021 Future Scheduled 2021-02-26 ESOPHAGEAL 1 Occurrences [facility] Test 08:32:02 MANOMETRY/MOTILITY starting of Medici ne [code = NOCPT] 02/26/2021 until 08/29/2021 Future Scheduled 2015 SHINGLES VACCINES ([address] [facility] Test 00:00:00 2) [code = SHINGLES Medical Center VACCINES (1 of 2)] Future Scheduled 2000 Lipid panel (procedure) [facility] Test 00:00:00 [code = 30906980] Medical Ce nter Future Scheduled 1984 DTAP/TDAP/TD VACCINES [facility] Test 00:00:00 (1 - Tdap) [code = Medical C enter DTAP/TDAP/TD VACCINES (1 - Tdap)] Future Scheduled 1983 HEPATITIS C SCREENING [facility] Test 00:00:00 [code = HEPATITIS C Medical Center SCREENING] Future Scheduled [address] [facility] Test 00:00:00 0-64 YRS (1 - PCV) Medical C enter [code = PNEUMOCOCCAL VACCINE 0-64 YRS (1 - PCV)] Future Scheduled 1965 COVID-19 VACCINE (#1) [facility] Test 00:00:00 [code = COVID-[address] VACCINE (#1)] Future Scheduled 1965 Screening for malignant [facility] Test 00:00:00 neoplasm of colon Medical Ce nter (procedure) [code = 453693504] Future Scheduled 1965 Screening for malignant [facility] Test 00:00:00 neoplasm of colon Medical Ce nter (procedure) [code = 266684663] Future Scheduled 1965 Sigmoidoscopy [code = [facility] Test 00:00:00 Sigmoidoscopy] Medical Cente r Future Scheduled 1965 CT Colonography (combo) [facility] Test 00:00:00 [code = CT Colonography [facility] (combo)] Future Scheduled Screening for malignant [facility] Test neoplasm of colon of Medicin e (procedure) [code = 012841803] Future Scheduled TETANUS SHOT (ADULT) [place] [facility] Test [code = TETANUS SHOT of Medi cine (ADULT)] Future Scheduled COVID-19 Vaccine (1) [place] [facility] Test [code = COVID-19 of Medicine Vaccine (1)] Future Scheduled Hepatitis C screening [facility] Test (procedure) [code = of Medic ine 207586863] Future Scheduled Human immunodeficiency [facility] [employer] [facility] virus screening of Medicine (procedure) [code = 617411413] Future Scheduled ZOSTER VACCINE (1 of 2) [facility] Test [code = ZOSTER VACCINE of Me dicine (1 of 2)] Future Scheduled FLU VACCINE > 6 MONTHS [facility] [employer] Test [code = FLU VACCINE > 6 of M edicine MONTHS] Future Scheduled BMI FOLLOW UP PLAN [facility] [employer] Test [code = BMI FOLLOW UP of Med icine PLAN] Encounters Start End Encounter Admission Attending Care Care Encounter Source Date/Time Date/Time Type Type Clinicians Facility Department ID 2022-06-16 Outpatient [place] [facility] [id number] Common 09:17:01 Alana [facility] 2022 Outpatient JEFFREY Pardo [facility] [id number] Common 08:34:00 Alana [facility] 2022-04-19 Outpatient [place], STLMLC STLMLC [id number] Common 16:01:02 Alana [facility] 2022-04-16 Outpatient [place], STLMLC STLMLC [id number] Common 15:49:00 Alana [facility] 2022-03-03 Outpatient [place], STLMLC STLMLC [id number] Common 08:37:01 Alana [facility] 2022-02-25 Outpatient [place], STLMLC STLMLC [id number] Common 09:26:01 Alana [facility] 2022-02-03 Inpatient EL Radha, HCACL OUTD [id number] [facility] 15:30:[address] 2021-12-29 Outpatient [place], STLMLC STLMLC [id number] Common 14:48:01 Alana [facility] 2021-12-07 Outpatient [place], STLMLC STLMLC [id number] Common 15:52:01 Alana [facility] 2021-12-04 Outpatient [place], STLMLC STLMLC [id number] Common 11:33:02 Alana [facility] 2021-10-28 Outpatient [place], STLMLC STLMLC [id number] Common 14:37:56 Alana [facility] 2021-10-28 Outpatient [place], STLMLC STLMLC [id number] Common 12:27:10 Alana [facility] 2021-10-28 Outpatient [place], STLMLC STLMLC [id number] Common 12:27:00 Alana [facility] 2021-10-28 Outpatient [place], STLMLC STLMLC [id number] Common 11:09:38 Alana 24671 [facility] 2021-08-01 Emergency [facility] [id number] Univers 17:52:03 [facility] 2021-07-[address] [facility] Surgery [id number] [facility] 13:16:42 SANTHOSH 2022-06-15 2022-06-15 ambulatory STLMLC STLMLC [id number] Common 00:00:00 00:00:00 [facility] 2022-06-07 2022-06-07 CARMEN Malone 1Enoc2.840.114 [id number] Univers 00:00:00 00:00:00 (Out) Alana HOPKINS 350.1.13.10 ity of [place] [id number] Kem as [phone] [place] [address] Branch 2022-05-27 2022-05-27 CARMEN Malone2.840.114 [id number] Univers 00:00:00 00:00:00 (Out) Alana HOPKINS 350.1.13.10 ity of [place] [address].2.7.2.686 Kem as [phone] [place] [address] Branch 2022-05-11 2022-05-11 ambulatory STLMLC STLMLC [id number] Common 00:00:00 00:00:00 [facility] 2022-04-19 2022-04-19 Orders Doctor CARMEN Sofia2.840.114 [id number] Univers 00:00:00 00:00:00 Only UnassignedSANDEEP 350.1.13.10 ity of [place] [address]686 Kem as [phone] [facility] 009 [place] 2022-03-16 2022-03-16 ambulatory STLMLC STLMLC [id number] Common 00:00:00 00:00:00 [facility] 2022-03-10 2022-03-10 ambulatory STLMLC STLMLC [id number] Common 00:00:00 00:00:00 [facility] 2022-03-08 2022-03-08 Orders Doctor CARMEN Sofia2.840.114 [id number] Univers 00:00:00 00:00:00 Only UnassignedSANDEEP 350.1.13.10 ity of [place] [address]686 Kem as [phone] [place] [address] Branch 2022-03-03 2022-03-03 ambulatory STLMLC STLMLC [id number] Common 00:00:00 00:00:00 [facility] 2022-02-25 2022-02-25 ambulatory STLMLC STLMLC [id number] Common 00:00:00 00:00:00 [facility] 2022-02-15 2022-02-15 ambulatory STLMLC STLMLC [id number] Common 00:00:00 00:00:00 [facility] 2022-01-14 2022-01-14 Outpatient Radha, HCAPM HCAPM [id number] [facility] 17:39:00 17:39:[address] 2021-12-04 2021-12-04 ambulatory STLMLC STLMLC [id number] Common 00:00:00 00:00:00 [facility] 2021-12-03 2021-12-03 ambulatory STLMLC STLMLC [id number] Common 00:00:00 00:00:00 [facility] 2021-08-28 2021-08-28 ambulatory STLMLC STLMLC [id number] Common 00:00:00 00:00:00 [facility] 2021-02-25 2021-02-26 Office TRICIAMARY ALVAREZ 1.2.840.114 [id number] [facility] 14:33:56 13:31:14 Visit SANTHOSH AMBULATOR 350.1.13.21 College Y 0.2.7.2.686 [id number] [facility] 810 e 2021-02-25 2021-02-25 Outpatient VANIA CLARKE [facility] [id number] [facility] 00:00:00 00:00:00 SANTHOSH 2021-01-26 2021-01-26 Outpatient EL SLEH [facility] [id number] [facility] 00:00:00 00:00:00 2021-01-26 2021-01-26 Outpatient EL SLEH [facility] [id number] [facility] 00:00:00 00:00:00 2021-01-26 2021-01-26 Outpatient EL SLEH [facility] [id number] [facility] 00:00:00 00:00:00 2021-01-26 2021-01-26 Outpatient SLEH [facility] [id number] [facility] 00:00:00 00:00:00 2021-01-26 2021-01-26 Outpatient SLEH [facility] [id number] [facility] 00:00:00 00:00:00 2021-01-23 2021-01-23 Outpatient EL SLEH [facility] [id number] [facility] 00:00:00 00:00:00 2021-01-15 2021-01-15 [facility] [id number] [facility] 13:30:00 13:30:00 [facility][id number] [facility] Hernandez 2021-01-07 2021-01-07 Office MARY Clarke 1.2.840.[id number] [place] [address] 12:47:11 15:02:43 Visit Santhosh SMITH 350.1.13.21 Hamida [facility]2.7.2.686 [id number] [facility] 810 e 2020-11-03 2020-11-03 Outpatient STLMLC STLMLC [id number] Common 00:00:00 00:00:00 [facility] 2020-02-13 2020-02-13 Orders Doctor CARMEN 1.2.840.114 [id number] 00:00:00 00:00:00 Only Unassigned, SANDEEP 350.1.13.10 [facility] 4.2.7.2.686 [id number] 2019-11-26 2019-11-26 [id number] Common 11:00:00 11:00:00 [facility] 2019-07-30 2019-07-30 [facility] PERRI Holm 1.2.840.114 [id number] 07:46:52 23:59:00 Encounter Sacha Burt 350.1.13.10 [facility] 4.2.7.2.686 [id number] 2019-07-30 2019-07-30 [id number] Univers 00:00:00 00:00:00 SACHA [facility] 2019-07-20 2019-07-20 Outpatient R DARRION [facility] [id number] Univers 00:00:00 00:00:00 ARMANDO [facility] 2019-07-12 2019-07-12 Hospital PERRI Holm 1.2.840.114 [id number] 07:42:39 23:59:00 Encounter Sacha Javed 350.1.13.10 [facility] 4.2.7.2.686 [id number] 2019-07-12 2019-07-12 [facility] [id number] Univers 00:00:00 00:00:00 SACHA [facility] 2019-06-28 2019-06-28 Outpatient Brisa WILLIAM [facility] [id number] Univers 17:35:25 23:59:00 DIONNE [facility] 2019-06-13 2019-06-13 Patient Marcos TANYA 1.2.840.114 [id number] 00:00:00 00:00:00 Outreach Taran Brooke [facility] 350.1.13.10 [facility] 4.2.7.2.686 [id number] 2019-06-08 2019-06-08 Office Yunior [facility] 1.2.840.114 [id number] 14:48:52 15:03:52 Visit [facility] 350.1.13.10 [facility] 4.2.7.2.686 [facility] [id number] [facility] 408 Results Test Description Test Time Test Comments Results Result Sour e Comments RAD, CHEST, 2 2021-02-01 Reason for VIEWS 7 Exam:->[id number] 08:34:00 (ICD-10-CM) - Status [facility] post lung surgery, [facility] J44.9 (ICD-10-CM) - CENTERName: Rico LINDER : pulmonary disease, 1965 Sex: unspecified COPD M type (HCCode FI NAL REPORT EXAM: PA and lateral [...] MDReport Verified Date/Time: 02/26/2021 08:34:51 Reading Location: [facility] Reading Room [address] [place] [address] UE EXAM Surgical Pathology 3 Report Case: 17:10:00 [id number] Authorizing Provider: Santhosh Clarke Jr., Collected: 01/27/2021 04:20 PM Ordering Location: [facility] Received: 01/28/2021 09:11 AM PERIOPERATIVE SERVICES Pathologist: Savanna Andrews MD Specimen: Lung, Left Upper Lobe, LEFT UPPER LOBE WEDGE RESECTION A. LUNG, LEFT UPPER LOBE, WEDGE RESECTION:- MULTIPLE LUNG BULLAE- INTRAPARENCHYMAL HEMORRHAGE WITH HEMOSIDERIN LADEN MACROPHAGES- ONE BENIGN LYMPH NODE (0/1) Signing Pathologist Direct Phone Line: [phone] chhaya signed by Savanna Andrews MD on 02/02/2021 at 5:10 [id number], left upper lobeA. Received fresh labeled with [...] margin. Remaining parenchyma is red and spongy. Railroad Firer sections (nodule entirely these are submitted.Section code:A1: Closest parenchymal margin to nodule, en faceA2: Anthracotic nodule, bisected, entirelyA3-A4: Railroad Firer of bullaeA5: Uninvolved parenchymaA6: Uninvolved parenchyma with pleuraChelsea KIRIT Hu PA (ASCP)cmPerformed.[facility], Department of Pathology, [address] [place] [address], [facility], Department of Pathology, [address] [place] [address], [facility]St. [facility], Department of Pathology, [address] [place], [place] [id number], RAD, CHEST, 2021-01-02 Reason for exam:->CT VIEW, NON DEPT 9 removal 12:52:00 [facility] CHINYERE : 1965 Sex: M FI NAL REPORT [...] MDReport Verified Date/Time: 01/29/2021 12:52:58 Reading Location: [facility] Radiology Reading Room , CHEST, 1 2021-01-02 Reason for VIEW, NON DEPT 9 exam:->s/p L VATS, 04:34:00 bullectomy, chest [facility] tube placementShould [facility] this be performed at CENTERName: KAIL[facility], the [...] Stable contours. Additional findings: None. Signed: Andres Corneliusort Verified Date/Time: 01/29/2021 04:34:22 , CHEST, 1 2021-01-02 Reason for VIEW, NON DEPT 8 exam:->s/p L VATS, 05:56:00 bullectomy, chest [facility] tube placementShould [facility] this be performed at [facility], the bedside?->Yes LAMAR WHITLOCK : 1965 Sex: [...] Stable contours.Additional findings: None. Signed: Chinyere Clark [facility] Verified Date/Time: 01/28/2021 05:56:34 , CHEST, 1 2021-01-02 Reason for VIEW, NON DEPT 7 exam:->s/p left 18:44:00 VATS, bullectomy, CHI chest tube [facility] placementShould this [facility] be performed at the LAMAR WHITLOCK : bedside?->Yes 1965 Sex: M FI NAL REPORT TECHNIQUE: Frontal view of the [...] the correct clinical setting. Signed: Mónica Bartholomew MDReport Verified Date/Time: 01/27/2021 18:44:25 Reading Location: [address] Consult Reading Room -COV2/RT-PCR ([facility]) 2021-01-27 04:41:00 Test Item Value Reference Range Interpretation Comme nts SARS-COV2/RT-PCR (test code = 6244487) Negative Not Detected, N egative, See external report for linked test SARS-COV-2 PERFORMING LAB (test code = [facility] [id number]) Negative result for this test determines that SARS-CoV-2 RNA was not present in the specimen above the Limit of Detection (LOD). However, Negative results do not preclude SARS-CoV-2 infection and should not be used as the sole basis for treatment or patient management decisions. Negative results must be combined with clinical observations, patient history, and [...] a nasopharyngeal swab specimen collected from individuals suspected of COVID-19 by their healthcare provider.This test [...] justifying the authorization of the emergency use ofin vitro diagnostic tests for detection and/or diagnosis of COVID-19 is terminated under Section 564(b)(2) of the Act or the EUA is revoked under Section 564(g) of the Act.Testing was performed using the White SARS-CoV-2 assay.Fact Sheet for Healthcare Providers:https://www.SecureWave.white/moises/RT_SAR D-EmG-5_UAD_Irzs_Bfltr_56-727078.pdfFact Sheet for Healthcare Patients:https://www.SecureWave.white/s al/FS_HVFT-VyK-7_Wrcrbmy_Jomq_Xzshu_RR_61-485732H2.pdfPerforming Laboratory:[facility] [place] [address] RAD, CHEST, PA OR AP, 1 [id number] 16:27:00Reason for exam:->pre op eval [facility] : 1965 Sex: MFINAL REPORT History: Preoperative evaluation Comparison: None Findings: There is hyperlucency in the left suprahilar region extending to the left lung apex suggestive of extensive bullous disease. There is associated vascular crowding and some lung parenchymal scarring just caudal tothis. The right lung appears clear. No pleural effusions or pneumothorax. A right central venous port catheter is present, with its tip in the SVC region The heart shadow is normal in size. The thoracic aorta is mildly tortuous. Degenerative changes are present in the spine. Impression: No evidence ofacute cardiopulmonary disease. Signed: Lamar Hannon MDReport Verified Date/Time: 01/26/2021 16:27:16Reading Location: [facility] Radiology Reading Room COMPREHENSIVE METABOLIC [id number] 15:47:00 Test Item Value Reference Range Interpretation [...] S NOT APPLICABLE FOR DIALYSIS PATIEN TS. Shirt Ironer ID - [id number] 15:42:00 Test Item Value Reference Range Interpretation Comments PARTIAL THROMBOPLASTIN TIME 28.9 seconds 22.5-36.0 (BEAKER) (test code = 760) PROTHROMBIN TIME/[id number] 15:41:00 Test Item Value Reference Range Interpretation Comments PROTIME (BEAKER) 13.5 seconds 11.9-14.2 (test code = 759) INR (BEAKER) (test 1.07 See_Comment [Automat ed message] code = 370) The system [employer]helter generated this result transmitted ref erence range: <=5.90. The reference range was not used to int erpret this result as normal/abnormal . Effective 02/28/2019: PT Reference Range ChangeNew: 11.9-14.2 Previous: 11.7- 14.7RECOMMENDED COUMADIN/WARFARIN INR THERAPY RANGESSTANDARD DOSE: 2.0-3.0 Includes: PROPHYLAXIS for venous thrombosis, systemic embolization; TREATMENT for venous thrombosis and/or pulmonary embolus.HIGH RISK: Target INR is 2.5-3.5 for patients wiht mechanical heart valves.CBC (HEMOGRAM [...]
[2022-06-17] MEDS ORDERED: NA CHLORIDE 0.9% 1,000 ML ONE (13:36)
--- NOTE | 2022-06-17 13:38 | RAD REPORT ---
EXAM DESCRIPTION: CT - Head Brain Wo Cont - 06/17/2022 1:28 pm CLINICAL HISTORY: Mental status change, unknown cause Headache, drowsiness COMPARISON: No comparisons TECHNIQUE: All CT scans are performed using dose optimization technique as appropriate and may inclu de automated exposure control or mA/KV adjustment according to patient size. FINDINGS: No intracranial hemorrhage, hydrocephalus or extra-axial fluid collection.No areas of brai n edema or evidence of midline shift. The paranasal sinuses and mastoids are clear. The calvarium is intact. IMPRESSION: No acute intracranial abnormality.
--- NOTE | 2022-06-17 13:52 | RAD REPORT ---
EXAM DESCRIPTION: RAD - Chest Single View - 06/17/2022 1:41 pm CLINICAL HISTORY: COUGH Chest pain. COMPARISON: Chest Single View dated 11/19/2021; Chest Single View dated 08/06/2020; Chest Single View dated 08/16/2019; Chest Single View dated 05/17/2019 FINDINGS: Portable technique limits examination quality. Interstitial markings are mildly prominent suggesting mild bronchitis. The heart is upper limit mirna l in size. No displaced fractures.
[2022-06-17 14:21] LABS: Absolute Lymphocytes (CBC) 1.2 K/uL (0.7-4.9); Hematocrit 44.6 % (39.6-49.0); Lymphocytes % 19.7 % (15.3-44.8); MCV 87.2 fL (80-100); MPV 7.2 fL (7.6-11.3); RBC Red Blood Cell Count 5.11 M/uL (4.33-5.43)
--- NOTE | 2022-06-17 14:25 | ER ---
Nurse's Notes [facility] Name: Farhad Johnson Age: 57 yrs Sex: Male : 1965 Arrival Date: 06/17/2022 Time: 12:23 Bed 4 Private MD: Alana Pardo Diagnosis: Chest pain, unspecified;Altered mental status, unspecified-RESOLVED;Essential (primary) hypertension Presentation: 06/17 12:31 Chief complaint: Patient states: i was a little confused earlier this morning. i tw2 couldn't get my head right. i thought i needed to be doing something but i couldn't figure out what it was. and my chest is hurting. Spouse and/or significant other states: he thought his son was coming but he is not. i would answer him and then he would walk off and then come back and ask me the same thing. he has stage 4 LUNG Cancer. it start about daylight about 6 am wondering around the house trying to figure what he was supposed to be doing. Coronavirus screen: At this time, the client does not indicate any symptoms associated with coronavirus-19. Ebola Screen: Patient denies travel to an Ebola-affected area in the 21 days before illness onset. Initial Sepsis Screen: Does the patient meet any 2 criteria? No. Patient's initial sepsis screen is negative. Does the patient have a suspected source of infection? No. Patient's initial sepsis screen is negative. Risk Assessment: Do you want to hurt yourself or someone else? Patient reports no desire to harm self or others. Onset of symptoms was June 17, 2022. 12:31 Method Of Arrival: Ambulatory tw2 12:31 Acuity: CARIDAD 3 tw2 Triage Assessment: 12:36 General: Appears in no apparent distress. Behavior is calm, cooperative, appropriate tw2 for age. Pain: Complains of pain in chest. Neuro: Level of Consciousness is awake, alert, obeys commands, Oriented to person, place, time, situation, Moves all extremities. Speech is normal, Facial symmetry appears normal. Cardiovascular: Reports chest pain, Capillary refill. Historical: - Allergies: 12:34 PENICILLINS; tw2 - Home Meds: 12:34 None [Active]; tw2 - PMHx: 12:34 COLON CA; Lung Cancer, stage 4; tw2 - PSHx: 12:34 top lobe LEFT lung removed; tw2 - Social history:: Smoking status: Patient reports the use of cigarette tobacco products, 3 or 4 cigarettes per day. - Family history:: not pertinent. Screenin:17 Abuse screen: Denies threats or abuse. Denies injuries from another. Nutritional ph screening: No deficits noted. Tuberculosis screening: No symptoms or risk factors identified. Fall Risk None identified. Vital Signs: 12:31 BP 155 / 106; Pulse 86; Resp 17; Temp 98.2(TE); Pulse Ox 97% on R/A; Weight 105.69 kg tw2 (R); Height 6 ft. 0 in. (182.88 cm); 12:31 Body Mass Index 31.60 (105.69 kg, 182.88 cm) tw2 ED Course: 12:23 Patient arrived in ED. mr 12:23 Alana Pardo is Private Physician. mr 12:34 Triage completed. tw2 12:50 Ryan Nicolas MD is Attending Physician. guzman 12:52 Arm band placed on. tw2 13:00 Florinda Jett, BHAVNA is Primary Nurse. ko1 13:17 Patient has correct armband on for positive identification. Bed in low position. Call ph light in reach. Side rails up X 1. Client placed on continuous cardiac and pulse oximetry monitoring. NIBP monitoring applied. 13:29 CT Head Brain wo Cont In Process Unspecified. EDMS 13:43 XRAY Chest (1 view) In Process Unspecified. EDMS 14:05 Basic Metabolic Panel Sent. ph 14:05 CBC with Diff Sent. ph 14:05 LFT's Sent. ph 14:06 Magnesium Sent. ph 14:06 NT PRO-BNP Sent. ph 14:06 PT-INR Sent. ph 14:06 Troponin HS Sent. ph 14:16 Prince Hidalgo MD is Hospitalizing Provider. guzman 14:45 Inserted saline lock: 18 gauge in left EJ, using aseptic technique. Blood collected. ko1 15:28 Basic Metabolic Panel Sent. ko1 15:28 LFT's Sent. ko1 15:28 Magnesium Sent. ko1 15:28 NT PRO-BNP Sent. ko1 15:28 Troponin HS Sent. ko1 Administered Medications: 14:05 Drug: NS 0.9% 500 ml Route: IV; Rate: bolus; Site: left jugular; ph 15:00 Follow up: Response: No adverse reaction; IV Status: Completed infusion; IV Intake: ph 500ml 15:27 Drug: NS 0.9% 1000 ml Route: IV; Rate: 125 ml/hr; Site: left jugular; ko1 17:52 Follow up: Response: No adverse reaction; IV Status: Infusion continued upon admission ph 15:40 Drug: Nitro-Bid (nitroglycerin) Ointment 2 % 1 inches Route: Transdermal; Site: ko1 anterior chest wall; 15:40 Drug: Tylenol 1000 mg Route: PO; ko1 17:51 Follow up: Response: No adverse reaction ph 15:41 Drug: Aspirin Chewable Tablet 162 mg Route: PO; ko1 17:51 Follow up: Response: No adverse reaction ph 15:41 Drug: Lopressor (metoprolol TARTRATE) 50 mg Route: PO; ko1 17:51 Follow up: Response: No adverse reaction ph 16:04 Drug: Pepcid (famotidine) 20 mg Route: IVP; Site: left jugular; ko1 17:50 Follow up: Response: No adverse reaction ph Medication: 13:17 VIS not applicable for this client. ph Intake: 15:00 IV: 500ml; Total: 500ml. ph Outcome: 14:24 Decision to Hospitalize by Provider. guzman 18:52 Patient left the ED. ss Signatures: Dispatcher [employer] Ryan Liu MD MD cha Rivera, Mary mr DesaiMarquita garrett RN RN ss Ada Cat RN RN ph Wise, Tara, RN RN 2 Florinda Jett RN RN ko1
--- NOTE | 2022-06-17 14:25 | EDPHYS ---
Physician Documentation [facility] Name: Farhad Johnson Age: 57 yrs Sex: Male : 1965 Arrival Date: 06/17/2022 Time: 12:23 Bed 4 Private MD: Alana Pardo ED Physician Ryan Nicolas HPI: 06/17 14:05 This 57 yrs old Male presents to ER via Ambulatory with complaints of guzman Confusion. 14:05 The patient or guardian reports chest pain that is located primarily in the substernal guzman area. Onset: just prior to arrival, this morning. The patient presents with trouble concentrating. Onset: The symptoms/episode began/occurred this morning. Possible causes: CVA or TIA, seizure. The pain does not radiate. Associated signs and symptoms: Pertinent positives: confusion. Current symptoms: In the emergency department the patient's symptoms have improved, mildly. The chest pain is described as a pressure. Historical: - Allergies: 12:34 PENICILLINS; tw2 - Home Meds: 12:34 None [Active]; tw2 - PMHx: 12:34 COLON CA; Lung Cancer, stage 4; tw2 - PSHx: 12:34 top lobe LEFT lung removed; tw2 - Social history:: Smoking status: Patient reports the use of cigarette tobacco products, 3 or 4 cigarettes per day. - Family history:: not pertinent. ROS: 14:05 Constitutional: Negative for fever, chills, and weight loss, Eyes: Negative for injury, guzman pain, redness, and discharge, ENT: Negative for injury, pain, and discharge, Neck: Negative for injury, pain, and swelling, Respiratory: Negative for shortness of breath, cough, wheezing, and pleuritic chest pain, Abdomen/GI: Negative for abdominal pain, nausea, vomiting, diarrhea, and constipation, Back: Negative for injury and pain, : Negative for injury, bleeding, discharge, and swelling, MS/Extremity: Negative for injury and deformity, Skin: Negative for injury, rash, and discoloration, Psych: Negative for depression, anxiety, suicide ideation, homicidal ideation, and hallucinations, Allergy/Immunology: Negative for hives, rash, and allergies, Endocrine: Negative for neck swelling, polydipsia, polyuria, polyphagia, and marked weight changes, Hematologic/Lymphatic: Negative for swollen nodes, abnormal bleeding, and unusual bruising. 14:05 Cardiovascular: Positive for chest pain. 14:05 Neuro: Positive for altered mental status, weakness. Exam: 14:05 Constitutional: This is a well developed, well nourished patient who is awake, alert, guzman and in no acute distress. Head/Face: Normocephalic, atraumatic. Eyes: Pupils equal round and reactive to light, extra-ocular motions intact. Lids and lashes normal. Conjunctiva and sclera are non-icteric and not injected. Cornea within normal limits. Periorbital areas with no swelling, redness, or edema. ENT: Nares patent. No nasal discharge, no septal abnormalities noted. Tympanic membranes are normal and external auditory canals are clear. Oropharynx with no redness, swelling, or masses, exudates, or evidence of obstruction, uvula midline. Mucous membranes moist. Neck: Trachea midline, no thyromegaly or masses palpated, and no cervical lymphadenopathy. Supple, full range of motion without nuchal rigidity, or vertebral point tenderness. No Meningismus. Chest/axilla: Normal chest wall appearance and motion. Nontender with no deformity. No lesions are appreciated. Cardiovascular: Regular rate and rhythm with a normal S1 and S2. No gallops, murmurs, or rubs. Normal PMI, no JVD. No pulse deficits. Respiratory: Lungs have equal breath sounds bilaterally, clear to auscultation and percussion. No rales, rhonchi or wheezes noted. No increased work of breathing, no retractions or nasal flaring. Abdomen/GI: Soft, non-tender, with normal bowel sounds. No distension or tympany. No guarding or rebound. No evidence of tenderness throughout. Back: No spinal tenderness. No costovertebral tenderness. Full range of motion. Male : Normal genitalia with no discharge or lesions. Skin: Warm, dry with normal turgor. Normal color with no rashes, no lesions, and no evidence of cellulitis. MS/ Extremity: Pulses equal, no cyanosis. Neurovascular intact. Full, normal range of motion. Neuro: Awake and alert, GCS 15, oriented to person, place, time, and situation. Cranial nerves II-XII grossly intact. Motor strength 5/5 in all extremities. Sensory grossly intact. Cerebellar exam normal. Normal gait. Psych: Awake, alert, with orientation to person, place and time. Behavior, mood, and affect are within normal limits. 14:05 ECG was reviewed by the Attending Physician. Vital Signs: 12:31 BP 155 / 106; Pulse 86; Resp 17; Temp 98.2(TE); Pulse Ox 97% on R/A; Weight 105.69 kg tw2 (R); Height 6 ft. 0 in. (182.88 cm); 12:31 Body Mass Index 31.60 (105.69 kg, 182.88 cm) tw2 Procedures: 14:11 Peripheral line: by aseptic technique a peripheral line was placed in the left external guzman jugular vein. MDM: 12:50 Patient medically screened. [facility] 14:11 Differential diagnosis: abnormal EKG, coronary artery disease chest wall pain, guzman Cholelithiasis costochondritis, esophagitis, hiatal hernia, pancreatitis, pericarditis, pneumonia, pulmonary embolus, stable angina, unstable angina. HEART Score: History: Slightly Suspicious (0), ECG: Normal (0), Age: > 45 and < 65 years (1), Risk Factors: 1 or 2 risk factors (1), [Hypertension] [+ Family HX] [Obesity] Troponin: < or = 1 x Normal Limit (0), Total Score = 2. Differential Diagnosis: electrolyte abnormality, intracranial bleed, overdose, TIA, volume depletion. The patient was given aspirin in the Emergency Department. The patient's deep vein thrombosis risk score was calculated as follows: the patient is receiving ongoing or pallative cancer treatment (1.0 Pts) Total Score: 1 to 2 points. This patient was found to be at moderate risk for a deep vein thrombosis by using the Well's assessment criteria. The patient's pulmonary embolism risk score was calculated as follows: malignancy Total Score: 0-2 points. This patient was found to be at low risk for a pulmonary embolism by using the Well's assessment criteria. WANDA Risk Score: 1 - Three or more CAD risk factors, TOTAL SCORE = 1. Data reviewed: vital signs, nurses notes, lab test result(s), EKG, radiologic studies, plain films. Data interpreted: it security architect: rate is 86 beats/min, rhythm is regular, Pulse oximetry: on room air is 97 %. Test interpretation: by ED physician or midlevel provider: ECG, plain radiologic studies. Counseling: I had a detailed discussion with the patient and/or guardian regarding: the historical points, exam findings, and any diagnostic results supporting the discharge/admit diagnosis, lab results, radiology results, the need for further work-up and treatment in the hospital. 06/17 12:52 Order name: Basic Metabolic Panel; Complete Time: 15:37 guzman 06/17 12:52 Order name: CBC with Diff; Complete Time: 15:05 06/17 12:52 Order name: LFT's; Complete Time: 15:37 06/17 12:52 Order name: Magnesium; Complete Time: 15:37 06/17 12:52 Order name: NT PRO-BNP; Complete Time: 15:37 guzman 06/17 12:52 Order name: PT-INR; Complete Time: 15:05 06/17 12:52 Order name: Troponin HS; Complete Time: 15:37 guzman 06/17 12:52 Order name: Lipase; Complete Time: 15:37 guzman 06/17 12:52 Order name: SARS RAPID; Complete Time: 15:05 guzman 06/17 15:56 Order name: NT PRO-BNP EDAR 06/17 15:56 Order name: Urinalysis EDAR 06/17 15:56 Order name: Basic Metabolic Panel EDAR 06/17 15:56 Order name: Basic Metabolic Panel EDAR 06/17 15:56 Order name: CBC with Automated Diff EDMS 06/17 15:56 Order name: CBC with Automated Diff EDAR 06/17 15:56 Order name: CKMB Creatine Kinase MB EDAR 06/17 15:56 Order name: CKMB Creatine Kinase MB EDAR 06/17 15:56 Order name: CKMB Creatine Kinase MB EDAR 06/17 15:56 Order name: CKMB Creatine Kinase MB EDMS 06/17 15:56 Order name: Comprehensive Metabolic Panel EDAR 06/17 15:56 Order name: Comprehensive Metabolic Panel EDAR 06/17 15:56 Order name: Lipid Profile EDAR 06/17 15:56 Order name: Lipid Profile EDAR 06/17 15:56 Order name: Magnesium EDAR 06/17 15:56 Order name: Magnesium EDMS 06/17 15:56 Order name: Phosphorus EDMS 06/17 15:56 Order name: Phosphorus EDMS 06/17 15:56 Order name: Protime (+INR) EDMS 06/17 15:56 Order name: Protime (+INR) EDMS 06/17 15:56 Order name: PTT, Activated Partial Thromb EDMS 06/17 12:52 Order name: XRAY Chest (1 view); Complete Time: 15:05 [facility] 06/17 12:52 Order name: EKG; Complete Time: 12:53 [facility] 06/17 12:52 Order name: Cardiac monitoring; Complete Time: 13:04 [facility] 06/17 12:52 Order name: EKG - Nurse/Tech; Complete Time: 14:06 [facility] 06/17 12:52 Order name: IV Saline Lock; Complete Time: 14:05 [facility] 06/17 12:52 Order name: Labs collected and sent; Complete Time: 13:17 [facility] 06/17 12:52 Order name: O2 Per Protocol; Complete Time: 13:17 [facility] 06/17 12:52 Order name: O2 Sat Monitoring; Complete Time: 13:04 [facility] 06/17 12:52 Order name: CT Head Brain wo Cont; Complete Time: 13:45 [facility] 06/17 15:56 Order name: Heart Healthy EDAR 06/17 15:56 Order name: PTT, Activated Partial Thromb EDAR 06/17 15:58 Order name: Extrem Venous W Compress Corey EDMS EC:05 Rate is 81 beats/min. Rhythm is regular. QRS [place] is Normal. HI interval is normal. QRS guzman interval is normal. QT interval is normal. No Q waves. T waves are Normal. Clinical impression: Normal ECG and No evidence of ischemia. Interpreted by me. Reviewed by me. Administered Medications: 14:05 Drug: NS 0.9% 500 ml Route: IV; Rate: bolus; Site: left jugular; ph 15:00 Follow up: Response: No adverse reaction; IV Status: Completed infusion; IV Intake: ph 500ml 15:27 Drug: NS 0.9% 1000 ml Route: IV; Rate: 125 ml/hr; Site: left jugular; ko1 17:52 Follow up: Response: No adverse reaction; IV Status: Infusion continued upon admission ph 15:40 Drug: Nitro-Bid (nitroglycerin) Ointment 2 % 1 inches Route: Transdermal; Site: ko1 anterior chest wall; 15:40 Drug: Tylenol 1000 mg Route: PO; ko1 17:51 Follow up: Response: No adverse reaction ph 15:41 Drug: Aspirin Chewable Tablet 162 mg Route: PO; ko1 17:51 Follow up: Response: No adverse reaction ph 15:41 Drug: Lopressor (metoprolol TARTRATE) 50 mg Route: PO; ko1 17:51 Follow up: Response: No adverse reaction ph 16:04 Drug: Pepcid (famotidine) 20 mg Route: IVP; Site: left jugular; ko1 17:50 Follow up: Response: No adverse reaction ph Disposition Summary: 06/17/22 14:24 Hospitalization Ordered Hospitalization Status: Observation guzman Provider: Prince guzman Hidalgo Location: Telemetry/MedSurg (observation) guzman Condition: Stable guzman Problem: new guzman Symptoms: have improved guzman Bed/Room Type: Standard [facility] Room Assignment: 405(06/17/22 16:57) eb Diagnosis - Chest pain, unspecified guzman - Altered mental status, unspecified - RESOLVED guzman - Essential (primary) hypertension guzman Forms: - Medication Reconciliation Form guzman - SBAR form guzman Signatures: Dispatcher [employer] EDRyan Collado MD MD cha Hall, Patricia RN RN Ryan Okeefe PA PA Neeru Jolley RN RN tw2 Gretel Valentine Kathy, RN RN ko1 Corrections: (The following items were deleted from the chart) 16:57 14:24 guzman eb
[2022-06-17 14:27] LABS: SARS-CoV-2 Antigen Rapid Res Negative (Negative)
[2022-06-17 15:31] LABS: Albumin 3.5 g/dL (3.4-5.0); Bilirubin Direct 0.3 mg/dL (0-0.2); Bilirubin Total 1.3 mg/dL (0.2-1.0); Magnesium 2.4 mg/dL (1.8-2.4); Potassium 3.7 mmol/L (3.5-5.1); Protein, Total 7.6 g/dL (6.4-8.2); Troponin High Sensitivity 6.4 pg/mL (<58.9)
[2022-06-17] MEDS ORDERED: NITROGLYCERIN 1 GM PKT TD ONE (15:41)
[2022-06-17] MEDS ORDERED: ACETAMINOPHEN 500 MG TAB ONE (15:47)
[2022-06-17] MEDS ORDERED: ASPIRIN EC 81 MG TAB PO ONE (15:47)
[2022-06-17] MEDS ORDERED: METOPROLOL TAR 50 MG TAB ONE (15:49)
[2022-06-17] MEDS ORDERED: FAMOTIDINE 20 MG/2 ML VIAL IV ONE (16:10)
[2022-06-17] MEDS ORDERED: FUROSEMIDE 20 MG/ 2ML VIAL IV ONE (17:00)
--- NOTE | 2022-06-17 19:02 | P.HP ---
Certification for Inpatient Patient admitted to: Observation With expected LOS: <2 Midnights Patient will require the following post-hospital care: None Practitioner: I am a practitioner with admitting privileges, knowledge of patient current condition, hospital course, and medical plan of care. Services: Services provided to patient in accordance with Admission requirements found in Title 42 Section 412.3 of the Code of Federal Regulations <Gwen Brock - Last Filed: 06/17/22 19:12> Patient History Date of Service: 06/17/22 Primary Care Provider: Kenzie Pardo Reason for admission: chest pain History of Present Illness: Mr. Johnson is a 57 yo male with a history of remission of colon cancer but now active Stage 4 Lung cancer. Pt had an episode of confusion today and noted chest pressure. As the chest pressure did not resolve, he was seen in the ED and will stay overnight for observation. At this time, the patient's GCS is 15 and he has no pressure in his chest. His is concerned about swelling that is always present to his lower extremities. Pt noted to have 2+ edema to ankles bilvinicio lleleni. Denies any pain at this time. Pt does not take any medications at home - Past Medical/Surgical History Has patient received pneumonia vaccine in the past: No Diabetic: No -: Colon cancer - remission -: Stage 4 Lung ca -: Left upper lobectomy - Family History Family History: Reviewed- Non-Contributory - Social History Smoking Status: Current every day smoker Smoking therapy provided: No Patient receptive to therapy: No Alcohol use: No CD- Drugs: No Caffeine use: Yes Place of Residence: Home (Pt lives at home with his .) <Gwen Brock - Last Filed: 06/17/22 19:12> Date of Service: 06/17/22 <Thomas Newman - Last Filed: 06/17/22 20:09> Allergies Penicillins Allergy (Verified 08/16/19 08:54) Anaphylaxis Home Medications: Hydrocodone 5/APAP 325 [Felt 5/325*] 1 tab PO Q4H PRN 08/16/19 Review of Systems General: As per HPI Eyes: Unremarkable ENT: Unremarkable Respiratory: Unremarkable Cardiovascular: Chest Pain (Pressure 4/10, no pressure at the time of admission) Gastrointestinal: Unremarkable Genitourinary: Unremarkable Integumentary: Unremarkable Neurological: As per HPI <Gwne Brock - Last Filed: 06/17/22 19:12> Physical Examination - Physical Exam General: Alert, In no apparent distress, Oriented x3 HEENT: Atraumatic, Normocephalic Neck: Supple, Other (left EJ in place) Respiratory: Normal air movement Cardiovascular: Regular rate/rhythm, Edema Capillary refill: <2 Seconds Gastrointestinal: Normal bowel sounds Musculoskeletal: No clubbing, No swelling Integumentary: No rashes, No breakdown Neurological: Normal speech, Normal tone External genitalia: Deferred - Studies Laboratory Data (last 24 hrs) 06/17/22 14:00: PT 11.9, INR 1.00 06/17/22 14:00: WBC 6.20, Hgb 15.2, Hct 44.6, Plt Count 271 06/17/22 14:00: Sodium 140, Potassium 3.7, BUN 15, Creatinine 0.98, Glucose 103, Magnesium 2.4, Total Bilirubin 1.3 H, AST 31, ALT 73, Alkaline Phosphatase 138 H, Lipase 219 <Gwen Brock - Last Filed: 06/17/22 19:12> - Studies Laboratory Data (last 24 hrs) 06/17/22 14:00: PT 11.9, INR 1.00 06/17/22 14:00: WBC 6.20, Hgb 15.2, Hct 44.6, Plt Count 271 06/17/22 14:00: Sodium 140, Potassium 3.7, BUN 15, Creatinine 0.98, Glucose 103, Magnesium 2.4, Total Bilirubin 1.3 H, AST 31, ALT 73, Alkaline Phosphatase 138 H, Lipase 219 <Thomas Newman - Last Filed: 06/17/22 20:09> Assessment and Plan - Problems (Diagnosis) (1) Chest pain Current Visit: Yes Status: Acute Plan: US bilateral legs for DVT, aspirin daily, lovenox prophylaxis, serial cardiac enzymes, consult to Cardiology Qualifiers: Chest pain type: unspecified Qualified Code(s): R07.9 - Chest pain, unspecified (2) Edema Current Visit: Yes Status: Acute Qualifiers: Edema type: localized Qualified Code(s): R60.0 - Localized edema - Plan Lasix x 1 dose, US bilateral lower extremities, daily weight Discharge Plan: Home Plan to discharge in: 24 Hours - Advance Directives Does patient have a Living Will: No Does patient have a Durable POA for Healthcare: No - Code Status/Comfort Care Code Status Assessed: Yes Code Status: Full Code Time Spent Managing Pts Care (In Minutes): 70 <Gwen Brock - Last Filed: 06/17/22 19:12> Physician Review: Patient Assessed, Agree with Above Assessment and Plan <Thomas Newman - Last Filed: 06/17/22 20:09>
[2022-06-17] MEDS: ALBUTEROL 2.5 MG/3 ML NEB SOL NEB SCH (20:05)
[2022-06-17] MEDS: ENOXAPARIN 40 MG/0.4 ML SQ SCH (20:42)
[2022-06-17 22:22] LABS: Specific Gravity 1.022 (1.005-1.030); Urine Bacteria <20 /HPF (<20); Urine Bilirubin NEGATIVE (Negative); Urine Blood Negative (Negative); Urine Clarity Clear (Clear); Urine Color Yellow (Yellow); Urine Glucose NEGATIVE (Negative); Urine Mucus Slight /HPF (None Seen); Urine Protein NEGATIVE (Negative); Urine RBC <5 /HPF (None Seen); Urine Urobilinogen 1+ (Normal); Urine pH 6.5 (5.0-7.0)
[2022-06-18] MEDS: ALBUTEROL 2.5 MG/3 ML NEB SOL NEB SCH ×2 (01:35→08:35)
[2022-06-18 01:39] VITALS: BMI 31.6
[2022-06-18 06:14] LABS: Absolute Lymphocytes (CBC) 1.1 K/uL (0.7-4.9); Hematocrit 44.9 % (39.6-49.0); Lymphocytes % 24.2 % (15.3-44.8); MCV 87.7 fL (80-100); MPV 7.4 fL (7.6-11.3); RBC Red Blood Cell Count 5.12 M/uL (4.33-5.43)
[2022-06-18 06:18] LABS: Protime INR 0.97
--- NOTE | 2022-06-18 06:29 | RAD REPORT ---
EXAM DESCRIPTION: CT - Head Brain W Cont - 06/17/2022 11:52 pm CLINICAL HISTORY: Eval for mets, confusion, memory changes, stage IV lung cancer, colon cancer COMPARISON: June 17, November 19 TECHNIQUE: Axial 5 mm thick images of the head were obtained prior to and following non-ionic IV con trast. All CT scans are performed using dose optimization technique as appropriate and may include automated exposure control or mA/KV adjustment according to patient size. FINDINGS: No intracranial hemorrhage, mass, edema or shift of mid-line structures. No acute infarction changes seen. No abnormal extra-axial fluid collections. No cortical edema or sulcal effacement. No atrophy o r chronic ischemic changes identified. Ventricles are normal. Post-contrast images show normal vascul ar enhancement. No aneurysm or vascular abnormality identifiable. No abnormal dura or brain parenchym al enhancement seen. Mastoid air cells and paranasal sinuses are clear. No acute bone finding. IMPRESSION: No intracranial metastatic disease or other acute intracranial findings. Exam is stable from comparison imaging.
[2022-06-18 06:34] LABS: Albumin 3.3 g/dL (3.4-5.0); Bilirubin Total 0.9 mg/dL (0.2-1.0); Magnesium 2.3 mg/dL (1.8-2.4); Phosphorus 2.5 mg/dL (2.5-4.9); Potassium 3.7 mmol/L (3.5-5.1); Protein, Total 7.5 g/dL (6.4-8.2)
--- NOTE | 2022-06-18 07:21 | RAD REPORT ---
EXAM DESCRIPTION: US - Extrem Venous W Compress Corey - 06/18/2022 5:36 am CLINICAL HISTORY: edema COMPARISON: None. TECHNIQUE: Real-time sonographic evaluation of the bilateral lower extremity common femoral, superfi cial femoral, popliteal and posterior tibial veins was performed. FINDINGS: Normal compressibility, flow augmentation, phasic flow and spontaneous flow are identified in the left and right lower extremity common femoral, superficial femoral, popliteal and posterior t ibial veins. No intraluminal filling defects seen. IMPRESSION: No DVT in either lower extremity.
[2022-06-18] MEDS ORDERED: POTASS/SODIUM PHOSPHATE 1 PKT POWD.PACK PO SCH (08:00)
[2022-06-18] MEDS: ENOXAPARIN 40 MG/0.4 ML SQ SCH (08:39)
[2022-06-18] MEDS ORDERED: ASPIRIN EC 81 MG TAB PO SCH (09:00)
[2022-06-18] MEDS ORDERED: POTASSIUM CL SA 10 MEQ TAB PO ONE (09:00)
--- NOTE | 2022-06-18 09:21 | P.DS ---
Admission Date: 06/17/22 Discharge Date: 06/18/22 Primary Care Provider: lAana Pardo NP Disposition: ROUTINE DISCHARGE Discharge Condition: GOOD Reason for Admission: Confusion Hospital Course: DIAGNOSES: # Reported Confusion in the setting of Stage IV Lung Cancer # History of Colon Cancer now in Remission HOSPITAL COURSE: Mr. Farhad Johnson is a pleasant 57 year old male with a past medical history significant for prior colon cancer with remission and active stage IV lung cancer who was admitted to the [facility] on 06/17/2022 for confusion. He was admitted to the Medicine service. Upon our evaluation, he was alert and oriented x 4 to person, place, time, and situation. Confusion and disorientation were never appreciated during his hospitalization. His , Ms. Torres, who was at bedside endorsed him having this episode; however, she agreed that he had returned to his mental baseline by the time of hospitalization. For further evaluation, laboratory studies and radiographic imaging were obtained. His laboratory studies were fairly unremarkable. Non-contrast CT head revealed, "no intracranial metastatic disease or other acute intracranial findings. Exam is stable from comparison imaging." Contrast CT head revealed, "no acute intracranial abnormality." A bilateral lower extremity Doppler revealed, "no DVT in either lower extremity." Since he has not had any recurrent episodes of confusion, he stated that he really wanted to be discharged home. Given that he has returned to his mental baseline, this is reasonable. On 06/18/2022, he was seen on morning rounds and deemed medically stable for discharge. He was discharged with instructions to schedule follow-up appointments with his PCP (LUCHO Pardo) in 3-5 days and with his Oncologist as previously scheduled. He and his were given the opportunity to ask questions and reported no further questions. Furthermore, all questions were answered to the best of my ability. Today, I personally spent 20 minutes on his case, of which greater than 50% of the time was spent in patient education, counseling, and coordination of care as described above. Vital Signs/Physical Exam: Temp Pulse Resp BP Pulse Ox 97.0 F 73 18 116/71 93 06/18/22 08:00 06/18/22 08:00 06/18/22 08:00 06/18/22 08:00 06/18/22 08:00 General: Alert, In no apparent distress, Oriented x3 HEENT: Atraumatic, PERRLA, Mucous membr. moist/pink, EOMI, Sclerae nonicteric Neck: Supple, JVD not distended Respiratory: Clear to auscultation bilaterally, Normal air movement Cardiovascular: No edema, Regular rate/rhythm, Normal S1 S2, No gallops, No rubs, No murmurs Gastrointestinal: Normal bowel sounds, Soft and benign, Non-distended, No tenderness, No rebound, No guarding Musculoskeletal: No clubbing Integumentary: No rashes Neurological: Normal speech, Normal strength at 5/5 x4 extr, Sensation intact, Cranial nerves 3-12 intact, Normal affect Laboratory Data at Discharge: WBC 4.60 K/uL (4.3-10.9) 06/18/22 05:17 Hgb 15.2 g/dL (13.6-17.9) 06/18/22 05:17 Hct 44.9 % (39.6-49.0) 06/18/22 05:17 Plt Count 276 K/uL (152-406) 06/18/22 05:17 PT 10.7 SECONDS (9.5-12.5) 06/18/22 05:17 INR 0.97 06/18/22 05:17 APTT 29.2 SECONDS (24.3-36.9) 06/18/22 05:17 Sodium 140 mmol/L (136-145) 06/18/22 05:17 Potassium 3.7 mmol/L (3.5-5.1) 06/18/22 05:17 BUN 13 mg/dL (7-18) 06/18/22 05:17 Creatinine 0.99 mg/dL (0.55-1.3) 06/18/22 05:17 Glucose 103 mg/dL (74-106) 06/18/22 05:17 Phosphorus 2.5 mg/dL (2.5-4.9) 06/18/22 05:17 Magnesium 2.3 mg/dL (1.8-2.4) 06/18/22 05:17 Total Bilirubin 0.9 mg/dL (0.2-1.0) 06/18/22 05:17 AST 32 U/L (15-37) 06/18/22 05:17 ALT 72 U/L (12-78) 06/18/22 05:17 Alkaline Phosphatase 142 U/L (45-117) H 06/18/22 05:17 Triglycerides 148 mg/dL (<150) 06/18/22 05:17 Cholesterol 190 mg/dL (<200) 06/18/22 05:17 HDL Cholesterol 42 mg/dL (40-60) 06/18/22 05:17 Cholesterol/HDL Ratio 4.52 06/18/22 05:17 Lipase 219 U/L (73-393) 06/17/22 14:00 Home Medications: NK [No Home Meds] 06/17/22 Physician Discharge Instructions: 1. Please schedule a follow-up appointment with your PCP (LUCHO Pardo) in 3-5 days Diet: Regular Activity: Ad pauline Followup: Alana Pardo, DIRECTOR HEMATOLOGY [Primary Care Provider] - (call to schedule an appointment ) Time spent managing pt's care (in minutes): 20
--- NOTE | 2022-06-18 12:34 | EKG ---
Test Date: 2022-06-17 Test Time: 12:38:44 Dental Associate: DHAVAL MEASUREMENT RESULTS: Intervals: Rate: 81 NH: 160 QRSD: 78 QT: 388 QTc: 450 [place]: P: 67 NH: 160 QRS: 75 T: 72 INTERPRETIVE STATEMENTS: Normal sinus rhythm Normal ECG Compared to ECG 08/06/2020 06:31:16 No significant changes Electronically Signed On 06-18-22 12:32:15 CDT by Jeancarlos Us
[2022-06-18 23:36] VITALS: BP 155/106; TEMP 98.2; O2SAT 97
== END 2022-06-18 10:51 | disposition home or self-care (01) ==
LOC: ER 12:21 → ERHOLD 15:45 → 4TH 18:28
PROVIDERS: ADMIT Internal Medicine; ATTEND Internal Medicine
DX: R07.9 Chest pain, unspecified (principal); R41.0 Disorientation, unspecified; C34.90 Malignant neoplasm of unspecified part of unspecified bronchus or lung; R60.0 Localized edema; Z88.0 Allergy status to penicillin; Z85.038 Personal history of other malignant neoplasm of large intestine; Z20.822 Contact with and (suspected) exposure to COVID-19
CPT/HCPCS: 36415; 70450; 70460; 71045; 80048; 80053; 80061; 80076; 81001; 82553; 83690; 83735; 83880; 84100; 84484; 85025; 85610; 85730; 87811; 93005; 93970; 94760; 96361; 96374; 99284; G0378; J1650; J1940; J7030; Q9967

== ENCOUNTER 2022-08-11 14:17 | Emergency (ER) | payer OTHER ==
--- OUTSIDE RECORDS SUMMARY | 2022-08-11 14:21 | XMS REPORT | Continuity of Care Document ---
:1965 Author Organization [facility] t Address [address] Giang. [address] [place] [id number] Care Team Providers Name Role Phone No, Pcp [facility] Primary Care Physician Unavailable CANDELARIA FINCH Attending Clinician Unavailable Alana Pardo Attending Clinician Unavailable Dov Garcia Attending Clinician Unavailable SANTHOSH CLARKE Attending Clinician Unavailable Alana Pardo Attending Clinician Doctor Unassigned, [place] Attending Clinician Unavailable SANTHOSH CLARKE Attending Clinician Unavailable Santhosh Clarke Attending Clinician Unavailable Santhosh Clarke MD Attending Clinician Sacha Holm MD Attending Clinician ASCHA HOLM Attending Clinician Unavailable ARMANDO MAIER Attending Clinician Unavailable DIONNE THOMAS Attending Clinician Unavailable Taran Rodríguez LMSW Attending Clinician Unavailable Carmen Mojica MD Attending Clinician SANTHOSH CLARKE Admitting Clinician Unavailable DIONNE THOMAS Admitting Clinician Unavailable Payers Payer Name Policy Type Policy Number Effective Date Expiration Date S jose MORAN [id number] [place] [address] [id number] 2021 [facility] MCR 00:00:00 Spirit - C [place] HMO Gold [place] [address] [id number] Common [facility] (market [facility] AMBETTER - [id number] [facility] MULTIPLAN [id number] 2019 2019 GENERIC 00:00:00 00:00:00 Problems Condition Condition Condition Status Onset Resolution Last Treating Co mments Source Name Details Category Date Date Treatment Clinician Date Lung Lung Disease Active [facility] St bullae bullae 01-27 [facility] 00:00: Medical 00 Center Rectal Rectal Disease Active 2018-10 Univers adenocarci adenocarci 0-08 it y of noma noma 00:00: [place] 00 Medical Branch Rectal Rectal Disease Active Overview: Univer s bleeding bleeding 8-22 Formattin ity of 00:00: g of this [place] note Medical might be Branch different from the original. Added automatic ally from request for surgery [id number] Rectal Rectal Disease Active Overview: Univer s mass mass 8-22 Formattin ity of 00:00: g of this [place] note Medical might be Branch different from the original. 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 Allergies, Adverse Reactions, Alerts Allergy Allergy Status Severity Reaction(s) Onset Inactive Treating Comm ents Source Name Type Date Date Clinician PENICILL Allergy Active High Hives [facility] Medical 00 Center Penicill Propensi Active Hives dizziness [facility] adverse 00:00: Medical reaction 00 Center s Penicill Propensi Active Hives Univer s in ty to 05-24 ity of adverse 00:00: [place] reaction 00 Medical s to Branch drug PENICILL DRUG Active High Dizziness Unive rs IN INGREDI 05-24 ity of 00:00: [place] 00 Medical Branch Penicill Propensi Active Hives Other [facility] in G ty to 05-24 reaction( College adverse 00:00: s): of reaction 00 Dizziness Medic in s to e drug 0 Drug Active swelliong Common allergy Spirit - CH[facility] Social History Social Habit Start Date Stop Date Quantity Comments Source History of Tobacco Current Smoker Co mmon Spirit - Use [facility] History [facility] ge of Alcohol Binge Medicine History [facility] ge of Alcohol Std Drinks Medici ne Alcohol intake 2021-01-28 2021-01-28 Ex-drinker [facility] St Miguelangel es 00:00:00 00:00:00 (finding) [facility] Tobacco use and 2021-01-26 2021-01-[address] Melania kes exposure 00:00:00 00:00:00 [facility] Tobacco Comment 2021-01-26 2021-01-26 3-4 cigerettes [facility] 00:00:00 00:00:00 per day [facility] Alcohol Comment 2021-01-07 2021-01-07 2000 quit [facility] Co llege of 00:00:00 00:00:00 Medicine History [facility] 2021-01-07 2021-01-07 1 [facility] ge of Alcohol Frequency 00:00:00 00:00:00 Medicin e Cigarettes smoked 2019-05-24 2019-05-24 Univers ity of current (pack per 00:00:00 00:00:00 ) - Reported Branch Sex [birth year] RONNIE Babin Melania kes 00:00:00 00:00:00 Medical Center Smoking Status Start Date Stop Date Source Current Smoker 2022-05-17 00:00:00 Common Spiri t - [facility] Current some day smoker 2021-01-07 00:00:00 [facility] Medications Ordered Filled Start Stop Current Ordering Indication Dosage Frequency Signature Comments Components Source Medication Medication Date Date Medication? Clinician (SIG) Name Name Pantoprazol Pantoprazol No 1{table QD Pantoprazo e Sodium 40 e Sodium 40 5-16 t} le Sodium MG MG 00:00: 40 MG 00 Lisinopril Lisinopril No 1{table QD Lisinopril 10 MG 10 MG 3-04 t} 10 MG 00:00: 00 Lisinopril Lisinopril No 1{table QD Lisinopril 10 MG 10 MG 3-04 t} 10 MG 00:00: 00 LISINOPRIL Yes Take by [facility] or OR 5- mouth College 15:04: daily. of 57 Medicin e acetaminoph Yes [id number] 1{tbl} Take 1 [facility] en-codeine 02-06 9105 Tablet by Zhen robbins [...] 10 18:39: daily. Medic al MG tablet 49 [place] carvediloL Yes 3.125mg QD Take 3.[address] (COREG) 4-29 mg by [facility] 3.125 MG 18:39: mouth Medical tablet 49 daily. [place] lisinopriL Yes 10mg QD Take [address] (PRINIVIL,Z 4-29 by mouth Luke s ESTRIL) 10 18:39: daily. Medic al MG tablet 49 [place] carvediloL Yes 3.125mg QD Take 3.[address] (COREG) 4-29 mg by [facility] 3.125 MG 18:39: mouth Medical tablet 49 daily. [place] LISINOPRIL Yes Take by [facility] or OR 4-07 mouth College 18:09: daily. of 12 Medicin e carvedilol Yes 3.125mg Take 3.125 [place] (COREG) 4-07 mg by [place] 3.125 MG 00:00: mouth two of tablet 00 times Medicin daily. e furosemide Yes [id number] 20mg Take 1 Univers 20 mg 1-18 tablet by ity of tablet 00:00: mouth [place] 00 every Medical morning. Branch furosemide Yes [id number] 20mg Take 1 Univers 20 mg 1-18 tablet by ity of tablet 00:00: mouth [place] 00 every Medical morning. Branch furosemide Yes [id number] 20mg Take 1 Univers 20 mg 1-18 tablet by ity of tablet 00:00: mouth [place] 00 every Medical morning. Branch furosemide Yes [id number] 20mg Take 1 Univers 20 mg 1-18 tablet by ity of tablet 00:00: mouth [place] 00 every Medical morning. Branch acetaminoph 2018-10 Yes [id number] 1{tbl} Take 1 Univers en-codeine 0-08 tablet by ity of (TYLENOL-CO 00:00: mouth [place] DEINE #3) 00 every 4 Medical 300-30 mg (four) Branch tablet hours as needed for Pain (scale 4-6). acetaminoph 2018-10 Yes [id number] 1{tbl} Take 1 Univers en-codeine 0-08 tablet by ity of (TYLENOL-CO 00:00: mouth [place] DEINE #3) 00 every 4 Medical 300-30 mg (four) Branch tablet hours as needed for Pain (scale 4-6). acetaminoph 2018-10 Yes [id number] 1{tbl} Take 1 Univers en-codeine 0-08 tablet by ity of (TYLENOL-CO 00:00: mouth [place] DEINE #3) 00 every 4 Medical 300-30 mg (four) Branch tablet hours as needed for Pain (scale 4-6). acetaminoph 2019- Yes [id number] 1{tbl} Take 1 Univers en-codeine 0-08 tablet by ity of (TYLENOL-CO 00:00: mouth [place] DEINE #3) 00 every 4 Medical 300-30 mg (four) Branch tablet hours as needed for Pain (scale 4-6). gabapentin 2019-0 Yes [id number] 300mg Take 1 Univers 300 mg 9-06 capsule by ity of capsule 00:00: mouth 3 [place] 00 (three) Medical times Branch daily. ibuprofen 2019-0 Yes [id number] 800mg Take 1 Univers 800 mg 9-06 tablet by ity of tablet 00:00: mouth [place] 00 every 6 Medical (six) Branch hours as needed for Pain (scale 4-6). gabapentin 2019-0 Yes [id number] 300mg Take 1 Univers 300 mg 9-06 capsule by ity of capsule 00:00: mouth 3 00 (three) Medical times Branch daily. ibuprofen 2019-0 Yes [id number] 800mg Take 1 Univers 800 mg 9-06 tablet by ity of tablet 00:00: mouth [place] 00 every 6 Medical (six) Branch hours as needed for Pain (scale 4-6). gabapentin 2019-0 Yes [id number] 300mg Take 1 Univers 300 mg 9-06 capsule by ity of capsule 00:00: mouth 3 00 (three) Medical times Branch daily. ibuprofen 2019-0 Yes [id number] 800mg Take 1 Univers 800 mg 9-06 tablet by ity of tablet 00:00: mouth [place] 00 every 6 Medical (six) Branch hours as needed for Pain (scale 4-6). gabapentin 2019-0 Yes [id number] 300mg Take 1 Univers 300 mg 9-06 capsule by ity of capsule 00:00: mouth 3 [place] 00 (three) Medical times Branch daily. ibuprofen 2019-0 Yes [id number] 800mg Take 1 Univers 800 mg 9-06 tablet by ity of tablet 00:00: mouth [place] 00 every 6 Medical (six) Branch hours as needed for Pain (scale 4-6). traMADol 50 2019-0 Yes [id number] 50mg Take 1 Univers mg tablet 8-19 tablet by ity o f 00:00: mouth [place] 00 every 6 Medical (six) Branch hours as needed for Pain (scale 4-6) or Pain (scale 7-10). traMADol 50 2019-0 Yes [id number] 50mg Take 1 Univers mg tablet 8-19 tablet by ity o f 00:00: mouth [place] 00 every 6 Medical (six) Branch hours as needed for Pain (scale 4-6) or Pain (scale 7-10). traMADol 50 2018-0 Yes [id number] 50mg Take 1 Univers mg tablet 8-19 tablet by ity o f 00:00: mouth [place] 00 every 6 Medical (six) Branch hours as needed for Pain (scale 4-6) or Pain (scale 7-10). traMADol 50 2018-0 Yes [id number] 50mg Take 1 Univers mg tablet 8-19 tablet by ity o f 00:00: mouth [place] 00 every 6 Medical (six) Branch hours as needed for Pain (scale 4-6) or Pain (scale 7-10). Pantoprazol Pantoprazol No 1{table QD Pantoprazo e Sodium 40 e Sodium 40 t} le Sodium MG MG 40 MG Lisinopril Lisinopril No 1{table QD Lisinopril 10 MG 10 MG t} 10 MG Carvedilol Carvedilol No 1{table BID Carvedilol 3.125 MG 3.125 MG t_with_ 3.125 MG food} Lisinopril Lisinopril No 1{table QD Lisinopril 10 MG 10 MG t} 10 MG Carvedilol Carvedilol No 1{table BID Carvedilol 3.125 MG 3.125 MG t_with_ 3.125 MG food} Pantoprazol Pantoprazol No 1{table QD Pantoprazo e Sodium 40 e Sodium 40 t} le Sodium MG MG 40 MG Carvedilol Carvedilol No 1{table BID Carvedilol 3.125 MG 3.125 MG t_with_ 3.125 MG food} Carvedilol Carvedilol No 1{table BID Carvedilol 3.125 MG 3.125 MG t_with_ 3.125 MG food} Carvedilol Carvedilol No 1{table BID Carvedilol 3.125 MG 3.125 MG t_with_ 3.125 MG food} Carvedilol Carvedilol No 1{table BID Carvedilol 3.125 MG 3.125 MG t_with_ 3.125 MG food} Carvedilol Carvedilol No 1{table BID Carvedilol 3.125 MG 3.125 MG t_with_ 3.125 MG food} Lisinopril Lisinopril No 1{table QD Lisinopril 10 MG 10 MG t} 10 MG Carvedilol Carvedilol No 1{table BID Carvedilol 3.125 MG 3.125 MG t_with_ 3.125 MG food} Pantoprazol Pantoprazol No 1{table QD Pantoprazo e Sodium 40 e Sodium 40 t} le Sodium MG MG 40 MG Lisinopril Lisinopril No 1{table QD Lisinopril 10 MG 10 MG t} 10 MG Carvedilol Carvedilol No 1{table BID Carvedilol 3.125 MG 3.125 MG t_with_ 3.125 MG food} Pantoprazol Pantoprazol No 1{table QD Pantoprazo e Sodium 40 e Sodium 40 t} le Sodium MG MG 40 MG Lisinopril Lisinopril No 1{table QD Lisinopril 10 MG 10 MG t} 10 MG Carvedilol Carvedilol No 1{table BID Carvedilol 3.125 MG 3.125 MG t_with_ 3.125 MG food} Pantoprazol Pantoprazol No 1{table QD Pantoprazo e Sodium 40 e Sodium 40 t} le Sodium MG MG 40 MG Lisinopril Lisinopril No 1{table QD Lisinopril 10 MG 10 MG t} 10 MG Carvedilol Carvedilol No 1{table BID Carvedilol 3.125 MG 3.125 MG t_with_ 3.125 MG food} Pantoprazol Pantoprazol No 1{table QD Pantoprazo e Sodium 40 e Sodium 40 t} le Sodium MG MG 40 MG Lisinopril Lisinopril No 1{table QD Lisinopril 10 MG 10 MG t} 10 MG Carvedilol Carvedilol No 1{table BID Carvedilol 3.125 MG 3.125 MG t_with_ 3.125 MG food} Vital Signs Vital Name Observation Time Observation Value Comments Source WEIGHT 2021-01-29 05:02:00 110.6 kg HEIGHT 2021-01-27 08:19:00 182.9 cm WEIGHT 2021-01-27 08:19:00 101.424 kg HEIGHT 2021-01-26 08:52:00 182.9 cm WEIGHT 2021-01-26 08:52:00 105.235 kg height 2022-02-15 08:00:00 70 [in_i] Common [facility] weight 2022-02-15 08:00:00 247.2 [lb_av] Common [facility] temperature 2022-02-15 08:00:00 98.5 [degF] Common [facility] bmi 2022-02-15 08:00:00 35.47 kg/m2 [facility] oximetry 2022-02-15 08:00:00 94 % Common [facility] respiratory rate 2022-02-15 08:00:00 16 /min Comm on [facility] blood pressure 2022-02-15 08:00:00 132 mm[Hg] Common [facility] - systolic [facility] blood pressure 2022-02-15 08:00:00 78 mm[Hg] Common [facility] - diastolic [facility] height 2021-12-04 15:20:00 70 [in_i] Common [facility] weight 2021-12-04 15:20:00 242 [lb_av] Common [facility] temperature 2021-12-04 15:20:00 97.4 [degF] Common [facility] bmi 2021-12-04 15:20:00 34.72 kg/m2 Common [facility] oximetry 2021-12-04 15:20:00 96 % Common [facility] respiratory rate 2021-12-04 15:20:00 16 /min Comm on [facility] blood pressure 2021-12-04 15:20:00 142 mm[Hg] Common [facility] - systolic [facility] blood pressure 2021-12-04 15:20:00 92 mm[Hg] Common [facility] - diastolic [facility] Systolic blood 2021-02-26 13:13:00 138 mm[Hg] [facility] of pressure Medicine Diastolic blood 2021-02-26 13:13:00 91 mm[Hg] [facility] of pressure Medicine Heart rate 2021-02-26 13:13:00 83 /min [facility] ollege [facility] Body temperature 2021-02-26 13:13:00 36.94 Jessie [facility] Body height 2021-02-26 13:13:00 [facility] Body weight 2021-02-26 13:13:00 105.235 [facility] BMI 2021-02-26 13:13:00 30.61 kg/m2 [facility] WEIGHT 2021-01-29 05:02:00 110.6 kg HEIGHT 2021-01-27 08:19:00 182.9 cm WEIGHT 2021-01-27 08:19:00 101.424 kg HEIGHT 2021-01-26 08:52:00 182.9 cm WEIGHT 2021-01-26 08:52:00 105.235 kg Systolic blood 2021-01-07 18:06:00 158 mm[Hg] [facility] of pressure Medicine Diastolic blood 2021-01-07 18:06:00 108 mm[Hg] [facility] pressure Medicine Heart rate 2021-01-07 18:06:00 98 /min [facility] Body temperature 2021-01-07 18:06:00 36.78 Jessie [facility] Body height 2021-01-07 18:06:00 185.4 cm [facility] Body weight 2021-01-07 18:06:00 109.77 kg [facility] BMI 2021-01-07 18:06:00 31.93 kg/m2 [facility] Procedures Procedure Date / Time Performed Performing Clinician [facility] e REFERRAL- 2022-04-19 05:01:00 Doctor Unassigned, No [facility] REQUEST/RESPONSE Name Medical Branch REFERRAL- 2022-03-08 05:01:00 Doctor Unassigned, No [facility] REQUEST/RESPONSE Name Medical Branch Plan of Care Planned Activity Planned Date Details Comments Source Future Scheduled 2029-05-28 Screening for malignant [facility] Test 00:00:00 neoplasm of colon Medical Ce nter (procedure) [code = 491424486] Future Scheduled 2029-05-28 Screening for malignant [facility] Test 00:00:00 neoplasm of colon Medical Ce nter (procedure) [code = 751594858] Future Scheduled 2029-05-28 Screening for malignant [facility] Test 00:00:00 neoplasm of colon Medical Ce nter (procedure) [code = 987968926] Future Scheduled 2029-05-28 Screening for malignant [facility] Test 00:00:00 neoplasm of colon Medical Ce nter (procedure) [code = 198876750] Future Scheduled 2022-06-03 INFLUENZA VACCINE (#1) [facility] Test 00:00:00 [code = INFLUENZA Medical Ce nter VACCINE (#1)] Future Scheduled 2022-06-03 INFLUENZA VACCINE (#1) [facility] Test 00:00:00 [code = INFLUENZA Medical Ce nter VACCINE (#1)] Future Scheduled 2021-10-[address] [facility] Test 00:00:00 (12+) [code = Medical Center DEPRESSION SCREENING (12+)] Future Scheduled 2021-10-[address] [facility] Test 00:00:00 (12+) [code = Medical Center DEPRESSION SCREENING (12+)] Future Scheduled 2021-02-27 Screening for malignant [facility] Test 09:44:45 neoplasm of colon of Medicin e (procedure) [code = 530235546] Future Scheduled 2021-02-27 COVID-19 Vaccine (1) [place] [facility] Test 09:44:45 [code = COVID-19 of Medicine Vaccine (1)] Future Scheduled 2021-02-27 TETANUS SHOT (ADULT) [place] [facility] Test 09:44:45 [code = TETANUS SHOT of Medi cine (ADULT)] Future Scheduled 2021-02-27 Hepatitis C screening Ba [facility] Test 09:44:45 (procedure) [code = of Medic ine 388727412] Future Scheduled 2021-02-27 Human immunodeficiency B [facility] Test 09:44:45 virus screening of Medicine (procedure) [code = 212223912] Future Scheduled 2021-02-27 ZOSTER VACCINE (1 of 2) [facility] Test 09:44:45 [code = ZOSTER VACCINE of Me dicine (1 of 2)] Future Scheduled 2021-02-27 FLU VACCINE > 6 MONTHS B [facility] Test 09:44:45 [code = FLU VACCINE > 6 of M edicine MONTHS] Future Scheduled 2021-02-27 BMI FOLLOW UP PLAN [facility] Test 09:44:45 [code = BMI FOLLOW UP of Med icine PLAN] Future Scheduled 2021-02-26 FL ESOPHAGRAM COMPLETE 1 Occurrences [facility] Test 08:32:02 [code = 54432-5] starting of Medicine 02/26/2021 until 08/29/2022 Future Scheduled 2021-02-26 FLANNERY PH EGD [code = 1 Occurrences [facility] Test 08:32:02 27574] starting of Medicine 02/26/2021 until 08/29/2021 Future Scheduled 2021-02-26 ESOPHAGEAL 1 Occurrences [facility] Test 08:32:02 MANOMETRY/MOTILITY starting of Medici ne [code = NOCPT] 02/26/2021 until 08/29/2021 Future Scheduled 2015 SHINGLES VACCINES ([address] [facility] Test 00:00:00 2) [code = SHINGLES Medical Center VACCINES (1 of 2)] Future Scheduled 2015 SHINGLES VACCINES ([address] [facility] Test 00:00:00 2) [code = SHINGLES Medical Center VACCINES (1 of 2)] Future Scheduled 2000 Lipid panel (procedure) [facility] Test 00:00:00 [code = 63981561] Medical Ce nter Future Scheduled 2000 Lipid panel (procedure) [facility] Test 00:00:00 [code = 63042404] Medical Ce nter Future Scheduled 1984 DTAP/TDAP/TD VACCINES [facility] Test 00:00:00 (1 - Tdap) [code = Medical C enter DTAP/TDAP/TD VACCINES (1 - Tdap)] Future Scheduled 1984 DTAP/TDAP/TD VACCINES [facility] Test 00:00:00 (1 - Tdap) [code = Medical C enter DTAP/TDAP/TD VACCINES (1 - Tdap)] Future Scheduled 1983 HEPATITIS C SCREENING [facility] Test 00:00:00 [code = HEPATITIS C Medical Center SCREENING] Future Scheduled 1983 HEPATITIS C [facility]CRE[facility]ING [facility] Test 00:00:00 [code = HEPATITIS C Medical Center SCREENING] Future Scheduled [address] [facility] Test 00:00:00 0-64 YRS (1 - PCV) Medical C enter [code = PNEUMOCOCCAL VACCINE 0-64 YRS (1 - PCV)] Future Scheduled [address] [facility] Test 00:00:00 0-64 YRS (1 - PCV) Medical C enter [code = PNEUMOCOCCAL VACCINE 0-64 YRS (1 - PCV)] Future Scheduled 1965 COVID-19 VACCINE (#1) [facility] Test 00:00:00 [code = COVID-[address] VACCINE (#1)] Future Scheduled 1965 COVID-19 VACCINE (#1) [facility] Test 00:00:00 [code = COVID-[address] VACCINE (#1)] Future Scheduled 1965 Screening for malignant [facility] Test 00:00:00 neoplasm of colon Medical Ce nter (procedure) [code = 555689417] Future Scheduled 1965 Screening for malignant [facility] Test 00:00:00 neoplasm of colon Medical Ce nter (procedure) [code = 529176187] Future Scheduled 1965 Sigmoidoscopy [code = [facility] Test 00:00:00 Sigmoidoscopy] Medical Cente r Future Scheduled 1965 CT Colonography (combo) [facility] Test 00:00:00 [code = CT Colonography [facility] Center (combo)] Future Scheduled 1965 CT Colonography (combo) [facility] Test 00:00:00 [code = CT Colonography Medi [facility] Center (combo)] Future Scheduled 1965 Screening for malignant [facility] Test 00:00:00 neoplasm of colon Medical Ce nter (procedure) [code = 733314472] Future Scheduled 1965 Screening for malignant [facility] Test 00:00:00 neoplasm of colon Medical Ce nter (procedure) [code = 843301396] Future Scheduled 1965 Sigmoidoscopy [code = CH I [facility] Test 00:00:00 Sigmoidoscopy] Medical Cente r Future Scheduled Screening for malignant [facility] Test neoplasm of colon of Medicin e (procedure) [code = 921568973] Future Scheduled TETANUS SHOT (ADULT) [place] [facility]ana [facility] Test [code = TETANUS SHOT of Medi cine (ADULT)] Future Scheduled COVID-19 Vaccine (1) [place] m[facility]ana [facility] Test [code = COVID-19 of Medicine Vaccine (1)] Future Scheduled Hepatitis C screening Ba [facility] Test (procedure) [code = of Medic ine 498259316] Future Scheduled Human immunodeficiency B [facility] Test virus screening of Medicine (procedure) [code = 206610908] Future Scheduled ZOSTER VACCINE (1 of 2) [facility] Test [code = ZOSTER VACCINE of Me dicine (1 of 2)] Future Scheduled FLU [facility]ACCINE > 6 MONTHS [facility] [code = FLU VACCINE > 6 of M edicine MONTHS] Future Scheduled BMI FOLLOW UP PLAN [facility] Test [code = BMI FOLLOW UP of Med icine PLAN] Encounters Start End Encounter Admission Attending Care Care Encounter Source Date/Time Date/Time Type Type Clinicians Facility Department ID 2022-07-29 Inpatient CANDELARIA BOB [facility] [id number] [address] 09:30:00 -[id number] [facility] 2022-06-16 [place]patient [place], [facility] [id number] Common 09:17:01 Alana [facility] 2022 Outpatient [place], [facility] [id number] Common 08:34:00 Alana [facility] 2022-04-19 Outpatient [place], [facility] [id number] Common 16:01:02 Alana [facility] 2022-04-16 [facility] [id number] Common 15:49:00 Alana [facility] 2022-03-03 Outpatient [place], [facility] [id number] Common 08:37:01 Alana [facility] 2022-02-25 Outpatient [place], [facility] [id number] Common 09:26:01 Alana [facility] 2022-02-03 Inpatient HOSEA SaucedoCL OUTD [id number] [facility] 15:30:[address] 2021-12-29 Outpatient Char, ST[facility]ANA[facility] STL[facility] [id number] Common 14:48:01 Alana [facility] 2021-12-07 Outpatient Char, STLMLC STL[facility]C [id number] Common 15:52:01 Alana [facility] 2021-12-04 Outpatient Char, STLMLC STLMLC [id number] Common 11:33:02 Alana [facility] 2021-10-28 Outpatient Char, STLMLC STLMLC [id number] Common 14:37:56 Alana [facility] 2021-10-28 Outpatient Char, STLMLC STLMLC [id number] Common 12:27:10 Alana [id number] [facility] 2021-10-28 Outpatient Char, STLMLC STLMLC [id number] Common 12:27:00 Alana 20673 [facility] 2021-10-28 Outpatient Char, STLMLC STLMLC [id number] Common 11:09:38 Alana 21227 [facility] 2021-08-01 Emergency [facility] [id number] [facility] TRICIA SLE Surgery [id number] [facility] 13:16:42 SANTHOSH 2022-06-15 2022-06-15 (TEL) STLC STLC [id number] Co mmon 00:00:00 00:00:00 [facility] 2022-06-07 2022-06-07 Letter CARMEN Pardo [id number] Univers 00:00:00 00:00:00 (Out) [facility] 4.2.7.2.686 Kem [place] [phone] [place] [address] [place] 2022-05-27 2022-05-27 Letter CARMEN Pardo [id number] Univers 00:00:00 00:00:00 (Out) Alana Bajwa SANDEEP 350.1.13.10 ity of [facility] 4.2.7.2.686 Kem as [phone] [place] [address] [place] 2022-05-11 2022-05-11 (TEL) STLMLC STLMLC [id number] Co mmon 00:00:00 00:00:00 [facility] 2022-04-19 2022-04-19 Orders Doctor CARMEN [id number] Univers 00:00:00 00:00:00 Only Unassigned, SANDEEP 350.1.13.10 ity of [place] [facility] 4.2.7.2.686 Kem as [phone] [place] [address] [place] 2022-03-16 2022-03-16 (TEL) STLMLC STLMLC [id number] Co mmon 00:00:00 00:00:00 [facility] 2022-03-10 2022-03-10 (TEL) STLMLC STLMLC [id number] Co mmon 00:00:00 00:00:00 [facility] 2022-03-08 2022-03-08 Orders Doctor CARMEN 1.2.840.114 [id number] Univers 00:00:00 00:00:00 Only Unassigned, SANDEEP 350.1.13.10 ity of [place] [facility] 4.2.7.2.686 Kem as [phone] [place] [address] [place] 2022-03-03 2022-03-03 (TEL) STLMLC STLMLC [id number] Co mmon 00:00:00 00:00:00 [facility] 2022-02-25 2022-02-25 (TEL) STLMLC STLMLC [id number] Co mmon 00:00:00 00:00:00 [facility] 2022-02-15 2022-02-15 OFFICE STLMLC STLMLC [id number] Co mmon 00:00:00 00:00:00 VISIT EST Spir it PT LEVEL 3 - CHI [facility] 2022-01-14 2022-01-14 Outpatient HOSEA GarciaPM HCAPM [id number] [facility] 17:39:00 17:39:00 Dov Weller [facility] 2021-12-04 2021-12-04 OFFICE STLMLC STLMLC [id number] Co mmon 00:00:00 00:00:00 VISIT Zelalem MIRAMONTES PT - CHI LEVEL 4 [facility] 2021-12-03 2021-12-03 (TEL) STLMLC STLMLC [id number] Co mmon 00:00:00 00:00:00 [facility] 2021-08-28 2021-08-28 (TEL) STLMLC STLMLC [id number] Co mmon 00:00:00 00:00:00 [facility] 2021-02-25 2021-02-26 Office MARY CLARKE 1.2.840.[id number] [place] [address] 14:33:56 13:31:14 Visit SANTHOSH AMBULATOR 350.1.13.21 College Y 0.2.7.2.686 [phone] [facility] 810 e 2021-02-25 2021-02-25 Outpatient VANIA CLARKE SLE [id number] [facility] 00:00:00 00:00:00 [facility] 2021-01-26 2021-01-26 Outpatient EL SLE SLE [id number] [facility] 00:00:00 00:00:00 2021-01-26 2021-01-26 Outpatient EL SLE SLE [id number] [facility] 00:00:00 00:00:00 2021-01-26 2021-01-26 Outpatient EL SLE SLE [id number] [facility] 00:00:00 00:00:00 2021-01-26 2021-01-26 Outpatient SLE SLE [id number] [facility] 00:00:00 00:00:00 2021-01-26 2021-01-26 Outpatient SLE SLE [id number] [facility] 00:00:00 00:00:00 2021-01-23 2021-01-23 Outpatient SLEH SLEH [id number] [facility] 00:00:00 00:00:00 2021-01-15 2021-01-15 Outpatient LUIS Clarke [facility] [id number] [facility] [address] 13:30:00 13:30:00 Santhosh -[id number] [place] [facility] [address] Farhad Hernandez 2021-01-07 2021-01-07 Office MARY Clarke 1.2.840.[id number] [place] [address] 12:47:11 15:02:43 Visit Santhosh AMBULATOR 350.1.13.21 [place] Zoya 0.2.7.2.686 [phone] Medi taj 810 e 2020-11-03 2020-11-03 Outpatient STLMLC STLMLC [id number] Common 00:00:00 00:00:00 [facility] 2020-02-13 2020-02-13 Orders Doctor MORALES 1.2.840.114 [id number] 00:00:00 00:00:00 Only Unassigned, SANDEEP 350.1.13.10 [place] [facility] 4.2.7.2.686 [id number] 2019-11-26 2019-11-26 Outpatient [facility] [id number] Common 11:00:00 11:00:00 [facility] Family [facility] 2019-07-30 2019-07-30 [facility] PERRI Holm 1.2.840.114 [id number] 07:46:52 23:59:00 Encounter Sacha Burt 350.1.13.10 [facility] 4.2.7.2.686 [id number] 2019-07-30 2019-07-30 Outpatient Brisa [facility] ACO [id number] Univers 00:00:00 00:00:00 SACHA bruce [facility] 2019-07-20 2019-07-20 Outpatient Brisa MAIER [facility] [id number] Univers 00:00:00 00:00:00 ARMANDO bruce [facility] 2019-07-12 2019-07-12 [facility] PERRI Holm 1.2.840.114 [id number] 07:42:39 23:59:00 Encounter Sacha Burt 350.1.13.10 [facility] 4.2.7.2.686 [id number] 2019-07-12 2019-07-12 Outpatient R [facility] ACO [id number] Univers 00:00:00 00:00:00 SACHA [facility] 2019-06-28 2019-06-28 Outpatient Brisa WILLIAM [facility] [id number] [facility] 17:35:25 23:59:00 ORAUTUMN eleni [facility] 2019-06-13 2019-06-13 Patient TANYA Rodríguez 1.2.840.114 [id number] 00:00:00 00:00:00 Outreach Taran Brooke [facility] 350.1.13.10 [facility] 4.2.7.2.686 [id number] 2019-06-08 2019-06-08 Office [facility] 1.2.840.114 [id number] 14:48:52 15:03:52 Visit [facility] 350.1.13.10 [facility] 4.2.7.2.686 [facility] [id number] [facility] 408 Results Test Description Test Time Test Comments Results Result Sour e Comments RAD, CHEST, 2 2021-02-01 Reason for VIEWS 7 Exam:->[id number] 08:34:00 (ICD-10-CM) - Status CHI post lung surgery, [facility] J44.9 (ICD-10-CM) - CENTERName: Rico LINDER [...] MDReport Verified Date/Time: 02/26/2021 08:34:51 Reading Location: [facility] Reading Room [address] [place] [address] UE EXAM Surgical Pathology 3 Report Case: 17:10:00 [id number] Authorizing Provider: Santhosh Clarke Jr., Collected: 01/27/2021 04:20 PM Ordering Location: [facility] Received: 01/28/2021 09:11 AM PERIOPERATIVE SERVICES Pathologist: Savanna Andrews MD Specimen: Lung, Left Upper Lobe, LEFT UPPER LOBE WEDGE RESECTION A. LUNG, LEFT UPPER LOBE, WEDGE RESECTION:- MULTIPLE LUNG BULLAE- INTRAPARENCHYMAL HEMORRHAGE WITH HEMOSIDERIN LADEN MACROPHAGES- ONE BENIGN LYMPH NODE (0/1) Signing Pathologist Direct Phone Line: [phone] chhaya signed by Savanna Andrews MD on 02/02/2021 at 5:10 [id number], left upper lobeA. Received fresh labeled with [...] margin. Remaining parenchyma is red and spongy. Harvest Supervisor sections (nodule entirely these are submitted.Section code:A1: Closest parenchymal margin to nodule, en faceA2: Anthracotic nodule, bisected, entirelyA3-A4: Harvest Supervisor of bullaeA5: Uninvolved parenchymaA6: Uninvolved parenchyma with pleuraChelsea KIRIT Hu, PA (ASCP)cmPerformed.[facility], Department of Pathology, [address] [place] [address], [facility] of [facility], [address] [place] [address], [facility], Department of [facility], [address] [place] [address], RAD, CHEST, 1 2021-01-02 Reason for exam:->CT VIEW, NON DEPT 9 removal 12:52:00 [facility] : 1965 Sex: M FI NAL REPORT [...] MDReport Verified Date/Time: 01/29/2021 12:52:58 Reading Location: [facility] Radiology Reading Room , CHEST, 1 2021-01-02 Reason for VIEW, NON DEPT 9 exam:->s/p L VATS, 04:34:00 bullectomy, chest CHI tube placementShould [facility] this be performed at CENTERName: KAILASH, the [...] VATS, 05:56:00 bullectomy, chest CHI tube placementShould [facility] this be performed at CENTERName: [facility], the bedside?->Yes LAMAR WHITLOCK : 1965 Sex: [...] Stable contours.Additional findings: None. Signed: Chinyere [facility] Verified Date/Time: 01/28/2021 05:56:34 , CHEST, 1 2021-01-02 Reason for VIEW, NON DEPT 7 exam:->s/p left 18:44:00 VATS, bullectomy, CHI chest tube [facility] placementShould this CENTERName: KAIL[facility], be performed at the LAMAR WHITLOCK : bedside?->Yes 1965 Sex: M NAL REPORT TECHNIQUE: Frontal [...] MDReport Verified Date/Time: 01/27/2021 18:44:25 Reading Location: [facility] B1 C013W Consult Reading Room -COV2/RT-PCR ([facility]) 2021-01-27 04:41:00 Test Item Value Reference Range Interpretation Comme nts SARS-COV2/RT-PCR (test code = 7105281) Negative Not Detected, N egative, See external report for linked test SARS-COV-2 PERFORMING LAB (test code = [facility] 0412426) Negative result for this test determines that [...] the White SARS-CoV-2 assay.Fact Sheet for Healthcare Providers:https://www.[employer].Hickies/moises/RT_SAR Z-VfO-2_VOE_Aofo_Vquve_86-451595.pdfFact Sheet for Healthcare Patients:https://www.[employer].Hickies/s al/SN_IMBJ-EtN-8_Lyqupcn_Oyxl_Ajkqi_GF_37-875577P9.pdfPerforming Laboratory:[facility] [place] [address] RAD, CHEST, PA OR AP, 1 [id number] 16:27:00Reason for exam:->pre op eval [facility] LAMAR CHINYERE : 1965 Sex: MFINAL REPORT History: [...] Hannon MDReport Verified Date/Time: 01/26/2021 16:27:16Reading Location: [facility] Radiology Reading Room COMPREHENSIVE METABOLIC [id number] 15:47:00 Test Item Value Reference Range Interpretation [...] S NOT APPLICABLE FOR DIALYSIS PATIEN TS. 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
[2022-08-11] MEDS ORDERED: MORPHINE 4 MG/ML SYR ONE (15:02)
[2022-08-11] MEDS ORDERED: ONDANSETRON 4 MG/2 ML VIAL ONE (15:02)
[2022-08-11] MEDS ORDERED: Levofloxacin500mg IV 500 MG/100 ML BAG IV ONE (15:02)
[2022-08-11] MEDS ORDERED: NA CHLORIDE 0.9% 1,000 ML ONE (15:05)
--- NOTE | 2022-08-11 15:29 | RAD REPORT ---
EXAM DESCRIPTION: US - Abdomen Exam Limited - 08/11/2022 3:16 pm CLINICAL HISTORY: RUQ pain COMPARISON: Stone Protocol dated 08/05/2020 FINDINGS: 10th Linette sized echogenic focus is present at the gallbladder neck. There is posterior ac oustic shadowing present. This is most likely a gallstone. No other fixed or mobile gallstones seen. No measurable quantity of sludge para no polyp seen. There is no wall thickening or pericholecystic f luid. No common duct stone or biliary tree dilatation identified. IMPRESSION: Single 10 mm gallstone is seen near the neck of the gallbladder. No other gallbladder or biliary tree abnormality.
[2022-08-11 16:04] LABS: SARS-COV-2 RT PCR NEGATIVE (NEGATIVE)
[2022-08-11 16:44] LABS: Absolute Lymphocytes (CBC) 0.9 K/uL (0.7-4.9); Hematocrit 48.6 % (39.6-49.0); Lymphocytes % 16.5 % (15.3-44.8); MCV 88.9 fL (80-100); MPV 7.5 fL (7.6-11.3); RBC Red Blood Cell Count 5.47 M/uL (4.33-5.43)
[2022-08-11 16:46] LABS: Protime INR 0.97
[2022-08-11 16:57] LABS: Albumin 3.2 g/dL (3.4-5.0); Bilirubin Direct 0.2 mg/dL (0-0.2); Bilirubin Total 0.8 mg/dL (0.2-1.0); Magnesium 2.5 mg/dL (1.8-2.4); Potassium 4.1 mmol/L (3.5-5.1); Protein, Total 7.3 g/dL (6.4-8.2); Troponin High Sensitivity 6.1 pg/mL (<58.9)
--- NOTE | 2022-08-11 18:43 | RAD REPORT ---
EXAM DESCRIPTION: CT - Chest For Pe Angio - 08/11/2022 6:23 pm CLINICAL HISTORY: Shortness of breath, history of colon, lung and liver malignancies COMPARISON: Chest Single View dated 07/07/2022; Lung Biopsy Perc w/CT dated 07/07/2022; Chest Abdomen Pelvis W Cont dated 07/01/2022 TECHNIQUE: Dynamically enhanced 3 mm thick images of the chest were obtained during administration o f approximately 150mL Isovue 370 IV contrast. Coronal and oblique MIP reconstruction images were gene rated and reviewed. Exam utilizes a protocol to evaluate the pulmonary arterial tree. All CT scans are performed using dose optimization technique as appropriate and may include automated exposure control or mA/KV adjustment according to patient size. FINDINGS: No pulmonary emboli are identified. The aorta as imaged shows no acute or suspicious finding. No pericardial thickening or effusion. Numerous subpleural apical bulla and bleb formation. Patient has multiple bilateral pulmonary nodules . These are not substantially different from prior imaging. Lung volumes are decreased compared to July 01 study. The lower lung volumes could possibly accentuate lung nodules creating 1 or 2 m m increases in size. Patient has dependent atelectasis in each lung field. The parenchymal opacities are more pronounced on the right and right lower lobe pneumonia is certainly a consideration. No pleu ral effusion or pleural thickening. No mediastinal or hilar suspicious masses. No chest wall masses or abnormal axillary lymphadenopathy. IMPRESSION: No pulmonary emboli identified. Right lower lobe parenchymal opacification suspicious for pneumonia. Multiple known pulmonary nodules not substantially different from July 01 imaging.
--- NOTE | 2022-08-11 18:48 | RAD REPORT ---
EXAM DESCRIPTION: CT - Abdomen Pelvis W Contrast - 08/11/2022 6:23 pm CLINICAL HISTORY: RUQ pain, colon, lung and liver malignant histories COMPARISON: Chest Abdomen Pelvis W Cont dated 07/01/2022 TECHNIQUE: Biphasic, helical CT imaging of the abdomen and pelvis was performed following 100 ml non -ionic IV contrast. Oral contrast: No All CT scans are performed using dose optimization technique as appropriate and may include automated exposure control or mA/KV adjustment according to patient size. FINDINGS: Patient has known multiple lung nodules. These are not substantially different. These are further detailed in separate CT chest report. Posterior right base parenchymal opacification is belie santiago to be pneumonia and atelectasis. Moderate-sized hiatal hernia is again noted. Approximately 12 millimeter low-density rounded poorly demarcated lesion is present in the medial sup erior right lobe liver. An approximately 2.7 centimeter poorly demarcated low-density masses seen in the lateral lower right lobe of the liver. Both of these were present on the July 01 study, neit her has shown any significant change. No new liver lesions seen. Spleen and pancreas show no suspicio us findings. No gallbladder or biliary tree abnormality. Symmetric renal function is seen with no hydronephrosis or suspicious renal mass. No pyelonephritis o r acute parenchymal process. Urinary bladder is contracted limiting assessment. No prostate gland abn ormality. No adrenal abnormalities. No gastric dilatation gastric wall thickening. No small bowel abnormality. Moderate stool volume is p resent filling the colon. Diverticulosis in the sigmoid colon is moderate. No diverticulitis. Sigmoid is redundant. No appendicitis findings. No free air, free fluid or inflammatory stranding. No mass or bulky lymphadenopathy. A 15 millimet er fat only periumbilical hernia present. Fat only right inguinal hernia present. Disc and bone degenerative changes are present. No clearly pathologic bone process identified. IMPRESSION: Stable liver metastatic disease since July 01 imaging. No acute GI or finding. No emergent abdomen or pelvis process. Posterior right lung base pneumonia.
--- NOTE | 2022-08-11 20:32 | EDPHYS ---
Physician Documentation [facility] Name: Farhad Johnson Age: 57 yrs Sex: Male : 1965 Arrival Date: 08/11/2022 Time: 14:28 Bed 23 Private MD: ED Physician Suman Mercado HPI: 08/11 14:42 This 57 yrs old Male presents to ER via EMS with complaints of Breathing Difficulty. pm1 14:42 The patient has shortness of breath that occurred at home. Onset: The symptoms/episode pm1 began/occurred this morning. Duration: The symptoms are continuous, and are unchanged since they started. The patient's shortness of breath is aggravated by right upper quadrant pain, is alleviated by nothing. Associated signs and symptoms: Pertinent positives: right back pain, Pertinent negatives: chest pain, nausea, vomiting. Severity of symptoms: in the emergency department the symptoms are unchanged. The patient has not experienced similar symptoms in the past. The patient has not recently seen a physician. Historical: - Allergies: 14:29 PENICILLINS; eh3 - PMHx: 14:29 COLON CA; Lung Cancer, stage 4; Liver Cancer; eh3 - PSHx: 14:29 top lobe LEFT lung removed; eh3 - Immunization history:: Adult Immunizations not up to date. - Social history:: Smoking status: Patient reports the use of cigarette tobacco products, 2 cigarettes per day, Patient/guardian denies using alcohol. ROS: 14:42 Constitutional: Negative for fever, chills, and weight loss, Cardiovascular: Negative pm1 for chest pain, palpitations, and edema. 14:42 MS/Extremity: Negative for injury and deformity, Skin: Negative for injury, rash, and discoloration, Neuro: Negative for headache, weakness, numbness, tingling, and seizure. 14:42 Respiratory: Positive for cough, shortness of breath, Negative for sputum production, wheezing. 14:42 Abdomen/GI: Positive for abdominal pain, of the right upper quadrant, Negative for nausea, vomiting, and diarrhea. 14:42 Back: Positive for of the right subscapular area pain. 14:42 All other systems are negative. Exam: 14:42 Constitutional: This is a well developed, well nourished patient who is awake, alert, pm1 and in no acute distress. Head/Face: Normocephalic, atraumatic. 14:42 Back: No spinal tenderness. No costovertebral tenderness. Full range of motion. Skin: Warm, dry with normal turgor. Normal color with no rashes, no lesions, and no evidence of cellulitis. MS/ Extremity: Pulses equal, no cyanosis. Neurovascular intact. Full, normal range of motion. 14:42 Cardiovascular: Exam negative for acute changes, Rate: normal, Rhythm: regular, Pulses: no pulse deficits are appreciated, Heart sounds: normal, normal S1and S2. 14:42 Respiratory: Exam negative for acute changes, respiratory distress, shortness of breath, Breath sounds: are clear throughout. 14:42 Abdomen/GI: Inspection: obese Palpation: soft, in all quadrants, mild abdominal tenderness, in the right upper quadrant. 14:42 Neuro: Exam negative for acute changes, Orientation: is normal, Mentation: is normal, Motor: is normal, moves all fours. Vital Signs: 14:28 BP 146 / 105; Pulse 79; Resp 21; Temp 94.9(O); Pulse Ox 100% on 1 lpm NC; Weight 106.59 eh3 kg; Height 6 ft. 0 in. (182.88 cm); Pain 8/10; 15:30 BP 155 / 103; Pulse 76; Resp 21; Pulse Ox 99% on 1 lpm NC; eh3 16:30 BP 152 / 108; Pulse 75; Resp 18; Pulse Ox 99% on 1 lpm NC; eh3 17:30 BP 151 / 104; Pulse 70; Resp 17; Temp 97.9(O); Pulse Ox 98% 1 lpm ; eh3 18:30 BP 139 / 95; Pulse 78; Resp 20; Pulse Ox 97% on 1 lpm NC; eh3 20:30 BP 145 / 96; Pulse 78; Resp 14; Pulse Ox 97% on 1 lpm NC; eh3 14:28 Body Mass Index 31.87 (106.59 kg, 182.88 cm) 3 MDM: 14:29 Patient medically screened. pm1 14:55 ED course: patient with hypertension, septic bolus not initiated. Will give 1 Liter pm1 initially. Pending work up for source of infection and shortness of breath and pain. 20:02 Data reviewed: vital signs. Data interpreted: Pulse oximetry: on 1L(s) per nasal pm1 canula, is 98 %. Interpretation: normal. Counseling: I had a detailed discussion with the patient and/or guardian regarding: the historical points, exam findings, and any diagnostic results supporting the discharge/admit diagnosis, lab results, radiology results, the need for further work-up and treatment in the hospital. 20:09 ED course: Discussed the case with Attending MD. Dr. Bazzi. Patient without pm1 cholecystitis and has pneumonia. Patient's initial temperature was likely erroneous, because patient was given fluids and abx his temperature increased without intervention. Dr Bazzi recommended IV antibiotics here and discharge home with abx prescription. 20:36 ED course: PMPaware reviewed. pm1 20:36 ED course: Discussed conversation and consultation with attending MD, patient would pm1 prefer to go home instead of staying in the hospital because his son is visiting from out of town. Discussed return precautions with the patient. 08/11 14:41 Order name: COVID-19/FLU A+B/RSV (Document "Date of Onset" if Symptomatic); Complete pm1 Time: 16:12 08/11 14:41 Order name: Blood Culture Adult (2) pm1 08/11 14:41 Order name: CBC with Diff; Complete Time: 17:28 pm1 08/11 14:41 Order name: CMP; Complete Time: 17:28 pm1 08/11 14:41 Order name: Lactate; Complete Time: 17:28 pm1 08/11 14:41 Order name: Protime (+inr); Complete Time: 17:28 pm1 08/11 14:41 Order name: Ptt, Activated; Complete Time: 17:28 pm1 08/11 14:41 Order name: Troponin High Sensitivity; Complete Time: 17:28 pm1 08/11 14:41 Order name: Magnesium; Complete Time: 17:28 pm1 08/11 14:41 Order name: BNP; Complete Time: 17:28 pm1 08/11 14:41 Order name: LFT's; Complete Time: 17:28 pm1 08/11 14:43 Order name: CT Chest For PE Angio; Complete Time: 19:17 pm1 08/11 14:49 Order name: CT Abd/Pelvis - IV Contrast Only; Complete Time: 19:17 pm1 08/11 14:56 Order name: Glucose, Ancillary Testing; Complete Time: 14:57 EDMS 08/11 14:41 Order name: Accucheck; Complete Time: 14:45 pm1 08/11 14:41 Order name: Cardiac monitoring; Complete Time: 14:41 pm1 08/11 14:41 Order name: EKG - Nurse/Tech; Complete Time: 14:41 pm1 08/11 14:41 Order name: IV Saline Lock - Large Bore; Complete Time: 17:14 pm1 08/11 14:41 Order name: Labs collected and sent; Complete Time: 17:14 pm1 08/11 14:41 Order name: O2 Per Protocol; Complete Time: 14:41 pm1 08/11 14:41 Order name: O2 Sat Monitoring; Complete Time: 14:41 pm1 08/11 14:41 Order name: Vital Signs; Complete Time: 14:41 pm1 08/11 14:51 Order name: US Abdomen Limited; Complete Time: 15:31 pm1 EC:34 Rate is 75 beats/min. Rhythm is regular, Normal Sinus Rhythm. NE interval is normal. pm1 QRS interval is normal. QT interval is normal. No Q waves. T waves are Normal. No ST changes noted. Clinical impression: Normal sinus rhythm, rightward axis, borderline EKG. Administered Medications: 17:13 Drug: morphine 4 mg Route: IVP; Infused Over: 4 mins; Site: left forearm; eh3 17:38 Follow up: Response: Pain is decreased eh3 17:13 Drug: Zofran (Ondansetron) 4 mg Route: IVP; Site: left forearm; eh3 17:38 Follow up: Response: No adverse reaction eh3 17:13 Drug: LevaQUIN (levofloxacin) 500 mg Volume: 100 ml; Route: IVPB; Infused Over: 60 eh3 mins; Site: left forearm; 18:28 Follow up: IV Status: Completed infusion; IV Intake: 100ml eh3 18:28 Follow up: Response: No adverse reaction eh3 17:13 Drug: NS 0.9% 1000 ml Route: IV; Rate: 1000 ml; Site: left forearm; eh3 18:28 Follow up: IV Status: Completed infusion; IV Intake: 1000ml eh3 Disposition Summary: 08/11/22 20:32 Discharge Ordered Location: Home pm1 Problem: new pm1 Symptoms: have improved pm1 Condition: Stable pm1 Diagnosis - Pneumonia, unspecified organism pm1 Followup: pm1 - With: Emergency Department - When: As needed - Reason: Recheck today's complaints, Continuance of care, Re-evaluation by your physician Followup: pm1 - With: Private Physician - When: 2 - 3 days - Reason: Recheck today's complaints, Continuance of care, Re-evaluation by your physician Followup: pm1 - With: Esequiel Queen MD - When: 2 - 3 days - Reason: Recheck today's complaints, Continuance of care, Re-evaluation by your physician Discharge Instructions: - Discharge Summary Sheet pm1 - Community-Acquired Pneumonia, Adult pm1 - Cholelithiasis pm1 Forms: - Medication Reconciliation Form pm1 - Thank You Letter pm1 - Antibiotic Education pm1 - Prescription Opioid Use pm1 Prescriptions: - levofloxacin 500 mg Oral Tablet - take 1 tablet by ORAL route once daily for 10 days; 10 tablet; Refills: 0, pm1 Product Selection Permitted - dicyclomine 20 mg Oral Tablet - take 1 tablet by ORAL route every 6 hours As needed; 20 tablet; Refills: 0, pm1 Product Selection Permitted - Tylenol-Codeine #3 300 mg-30 mg Oral - take 2 tablet by ORAL route every 6 hours As needed; 20 tablet; Refills: 0, pm1 Product Selection Permitted Signatures: Dispatcher [employer] Dwaine Gómez NP VISCERA WASHER pm1 Chelsea Cat RN RN eh3
--- NOTE | 2022-08-11 20:32 | ER ---
Nurse's Notes [facility] Name: Farhad Johnson Age: 57 yrs Sex: Male : 1965 Arrival Date: 08/11/2022 Time: 14:28 Bed 23 Private MD: Diagnosis: Pneumonia, unspecified organism Presentation: 08/11 14:28 Chief complaint: EMS states: difficulty breathing since this morning. Coronavirus eh3 screen: Vaccine status: Patient reports being unvaccinated. Ebola Screen: No symptoms or risks identified at this time. Initial Sepsis Screen: Does the patient meet any 2 criteria? No. Patient's initial sepsis screen is negative. Does the patient have a suspected source of infection? No. Patient's initial sepsis screen is negative. Risk Assessment: Do you want to hurt yourself or someone else? Patient reports no desire to harm self or others. Onset of symptoms was August 11, 2022. 14:28 Method Of Arrival: EMS: [place] [id number] 14:28 Acuity: [facility] 14:28 Initial Sepsis Screen: Does the patient meet any 2 criteria? RR > 20 per min. Temp eh3 <36.0*C (96.8*F)) or > 38.3*C (100.9*F). Does the patient have a suspected source of infection? No. Patient's initial sepsis screen is negative. Triage Assessment: 14:29 General: Appears distressed, uncomfortable, Behavior is cooperative, appropriate for eh3 age, anxious. Pain: Complains of pain in right upper quadrant Pain radiates to left upper quadrant Pain currently is 8 out of 10 on a pain scale. Quality of pain is described as sharp, Pain began 1 day ago. Is continuous. EENT: No signs and/or symptoms were reported regarding the EENT system. Neuro: Level of Consciousness is awake, alert, obeys commands, Oriented to person, place, time, situation. Cardiovascular: Capillary refill < 3 seconds Patient's skin is warm and dry. Respiratory: Airway is patent Respiratory effort is even, unlabored, Respiratory pattern is symmetrical, Onset: The symptoms/episode began/occurred this morning, the patient has moderate shortness of breath. Respiratory: Reports shortness of breath at rest air hunger labored breathing pain with movement. GI: Abdomen is flat, non-distended, Bowel sounds present X 4 quads. Abdomen is tender to palpation in right upper quadrant and left upper quadrant Guarding noted Hepatomegaly noted Reports upper abdominal pain, Pain is 8 out of 10 on a pain scale. : No signs and/or symptoms were reported regarding the genitourinary system. Derm: No signs and/or symptoms reported regarding the dermatologic system. Musculoskeletal: No signs and/or symptoms reported regarding the musculoskeletal system. Range of motion: intact in all extremities. Historical: - Allergies: 14:29 PENICILLINS; eh3 - PMHx: 14:29 COLON CA; Lung Cancer, stage 4; Liver Cancer; eh3 - PSHx: 14:29 top lobe LEFT lung removed; eh3 - Immunization history:: Adult Immunizations not up to date. - Social history:: Smoking status: Patient reports the use of cigarette tobacco products, 2 cigarettes per day, Patient/guardian denies using alcohol. Screenin:29 Abuse screen: Denies threats or abuse. Denies injuries from another. Nutritional eh3 screening: No deficits noted. Tuberculosis screening: No symptoms or risk factors identified. Fall Risk None identified. Assessment: 14:33 Reassessment: No changes from previously documented assessment. See triage assessment. eh3 Cardiovascular: Rhythm is sinus rhythm. Respiratory: Airway is patent Respiratory effort is even, labored, Respiratory pattern is symmetrical, Breath sounds are clear bilaterally. 15:30 Reassessment: Patient and/or family updated on plan of care and expected duration. Pain eh3 level reassessed. Patient is alert, oriented x 3, equal unlabored respirations, skin warm/dry/pink. 16:30 Reassessment: Patient and/or family updated on plan of care and expected duration. Pain eh3 level reassessed. Patient is alert, oriented x 3, equal unlabored respirations, skin warm/dry/pink. 17:30 Reassessment: Patient and/or family updated on plan of care and expected duration. Pain eh3 level reassessed. Patient is alert, oriented x 3, equal unlabored respirations, skin warm/dry/pink. 18:30 Reassessment: Patient and/or family updated on plan of care and expected duration. Pain eh3 level reassessed. Patient is alert, oriented x 3, equal unlabored respirations, skin warm/dry/pink. 19:30 Reassessment: Pt in CT. eh3 20:30 Reassessment: Patient and/or family updated on plan of care and expected duration. Pain eh3 level reassessed. Patient is alert, oriented x 3, equal unlabored respirations, skin warm/dry/pink. Vital Signs: 14:28 BP 146 / 105; Pulse 79; Resp 21; Temp 94.9(O); Pulse Ox 100% on 1 lpm NC; Weight 106.59 eh3 kg; Height 6 ft. 0 in. (182.88 cm); Pain 8/10; 15:30 BP 155 / 103; Pulse 76; Resp 21; Pulse Ox 99% on 1 lpm NC; eh3 16:30 BP 152 / 108; Pulse 75; Resp 18; Pulse Ox 99% on 1 lpm NC; eh3 17:30 BP 151 / 104; Pulse 70; Resp 17; Temp 97.9(O); Pulse Ox 98% 1 lpm ; eh3 18:30 BP 139 / 95; Pulse 78; Resp 20; Pulse Ox 97% on 1 lpm NC; eh3 20:30 BP 145 / 96; Pulse 78; Resp 14; Pulse Ox 97% on 1 lpm NC; eh3 14:28 Body Mass Index 31.87 (106.59 kg, 182.88 cm) eh3 Vitals: 15:30 Cardiac Rhythm Assessment Sinus rhythm. eh3 ED Course: 14:28 Patient arrived in ED. eh3 14:29 Dwaine Valdivia NP is PHCP. pm1 14:29 Suman Mercado MD is Attending Physician. pm1 14:29 Triage completed. eh3 14:29 Arm band placed on right wrist. eh3 14:29 Patient has correct armband on for positive identification. Placed in gown. Bed in low eh3 position. Call light in reach. Side rails up X2. Client placed on continuous cardiac and pulse oximetry monitoring. NIBP monitoring applied. Door closed. Noise minimized. Warm blanket given. 14:41 Chelsea Cat, BHAVNA is Primary Nurse. eh3 14:55 Missed attempt(s): 20 gauge in right forearm. Bleeding controlled, band aid applied, eh3 catheter tip intact. 15:06 COVID-19/FLU A+B/RSV (Document "Date of Onset" if Symptomatic) Sent. eh3 15:18 US Abdomen Limited In Process Unspecified. EDMS 16:45 Inserted saline lock: 22 gauge in left forearm, using aseptic technique. iw 18:24 CT Chest For PE Angio In Process Unspecified. EDMS 18:24 CT Abd/Pelvis - IV Contrast Only In Process Unspecified. EDMS 21:18 Esequiel Queen MD is Referral Physician. pm1 21:30 No provider procedures requiring assistance completed. IV discontinued, intact, eh3 bleeding controlled, No redness/swelling at site. Pressure dressing applied. Administered Medications: 17:13 Drug: morphine 4 mg Route: IVP; Infused Over: 4 mins; Site: left forearm; eh3 17:38 Follow up: Response: Pain is decreased eh3 17:13 Drug: Zofran (Ondansetron) 4 mg Route: IVP; Site: left forearm; eh3 17:38 Follow up: Response: No adverse reaction eh3 17:13 Drug: LevaQUIN (levofloxacin) 500 mg Volume: 100 ml; Route: IVPB; Infused Over: 60 eh3 mins; Site: left forearm; 18:28 Follow up: IV Status: Completed infusion; IV Intake: 100ml eh3 18:28 Follow up: Response: No adverse reaction eh3 17:13 Drug: NS 0.9% 1000 ml Route: IV; Rate: 1000 ml; Site: left forearm; eh3 18:28 Follow up: IV Status: Completed infusion; IV Intake: 1000ml eh3 Medication: 21:30 VIS not applicable for this client. eh3 Intake: 18:28 IV: 100ml; Total: 100ml. eh3 18:28 IV: 1000ml; Total: 1100ml. eh3 Output: 18:27 Urine: 700ml (Voided); Total: 700ml. eh3 Outcome: 20:32 Discharge ordered by . pm1 21:30 Discharged to home ambulatory. eh3 21:30 Condition: stable 21:30 Discharge instructions given to patient, Instructed on discharge instructions, follow up and referral plans. medication usage, Demonstrated understanding of instructions, follow-up care, medications, Prescriptions given X 3. 21:30 Patient left the ED. eh3 Signatures: Dispatcher [employer] EDMS Eleni Morejon RN RN iw Dwaine Valdivia, SCAFFOLDER SCAFFOLDER pm1 Chelsea Cat RN RN eh3 Corrections: (The following items were deleted from the chart) 14:41 14:28 BP 146 / 105; Pulse 79bpm; Resp 21bpm; Pulse Ox 100% 1 lpm Nasal Cannula; 106.59 eh3 kg; Height 6 ft. 0 in.; BMI: 31.8; Pain 8/10; 3 16:05 15:30 Abuse screen: Denies threats or abuse. Denies injuries from another. [place] [id number] 16:05 15:30 Nutritional screening: No deficits noted. [place] [id number] 16:05 15:30 Tuberculosis screening: No symptoms or risk factors identified. [place] [id number] 16:05 15:30 Fall Risk None identified. [place] [id number]
[2022-08-11 23:20] VITALS: TEMP 97.9
[2022-08-11 23:21] VITALS: O2SAT 97
[2022-08-11 23:22] VITALS: BP 145/96
--- NOTE | 2022-08-12 14:54 | EKG ---
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
== END 2022-08-11 21:30 | disposition home or self-care (01) ==
LOC: ER 14:17
DX: J18.9 Pneumonia, unspecified organism (principal); F17.210 Nicotine dependence, cigarettes, uncomplicated; Z20.822 Contact with and (suspected) exposure to COVID-19; Z85.038 Personal history of other malignant neoplasm of large intestine; Z85.118 Personal history of other malignant neoplasm of bronchus and lung; Z85.05 Personal history of malignant neoplasm of liver
CPT/HCPCS: 96365; 93005; 87040 ×2; 85025; 36415; 83735; 85610; 82947; 83605; 85730; 82248; 84484; 80053; 83880; 0241U; 71275; 74177; 76705; 96375; 99284; Q9967; J7030; J2405

== ENCOUNTER 2022-11-02 11:53 | Emergency (ER) | payer OTHER ==
--- OUTSIDE RECORDS SUMMARY | 2022-11-02 11:59 | XMS REPORT | Continuity of Care Document ---
:1965 Author Organization [facility] t Address [address] [place] [address] Care Team Providers Name Role Phone No, Pcp [facility] Primary Care Physician Unavailable Alana Pardo Attending Clinician Unavailable CANDELARIA FINCH Attending Clinician Unavailable Dov Garcia Attending Clinician Unavailable SANTHOSH CLARKE Attending Clinician Unavailable Alana Pardo Attending Clinician Doctor Unassigned, [place] Attending Clinician Unavailable SANTHOSH CLARKE Attending Clinician [...] Policy Number Effective Date Expiration Date Taty MORAN [id number] [place] [address] [id number] 2021 [facility] MCR 00:00:00 Spirit - C HI HMO Gold [place] [address] [id number] [facility] (market [facility] AMBETTER - [id number] [facility] MULTIPLAN [id number] 2019 2019 GENERIC 00:00:00 00:00:00 Problems Condition Condition Condition Status Onset Resolution Last Treating Co mments Source Name Details Category Date Date Treatment Clinician Date Lung Lung Disease Active [facility] bullae bullae 01-27 [facility] 00:00: Medical 00 Center Rectal Rectal Disease Active 2018-10 Univers adenocarci adenocarci 0-08 it y of n[place] noma 00:00: [place] 00 Medical Branch Rectal Rectal Disease Active Overview: Univer s bleeding bleeding 8-22 Formattin ity of 00:00: g of this [place] 00 note Medical might be Branch different from the original. Added automatic ally from request for surgery [id number] Rectal Rectal Disease Active Overview: Univer s mass mass 8-22 Formattin ity of 00:00: g of this [place] note Medical might be Branch different from the original. 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 [facility] [id number] 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 [facility] Allergies, Adverse Reactions, Alerts Allergy Allergy Status Severity Reaction(s) Onset Inactive Treating Comm ents Source Name Type Date Date Clinician PENICILL Allergy Active High Hives [facility]: Medical 00 Center Penicill Propensi Active Hives dizziness [facility] adverse 00:00: Medical reaction 00 Center s Penic[place] Propensi Active Hives dizziness [facility] adverse 00:00: Medical reaction 00 Center s Penic[place] Propensi Active Hives Univer s in ty to 05-24 ity of adverse 00:00: [place] reaction 00 Medical s to Branch drug PENICILL DRUG Active High Dizziness Unive rs IN INGREDI 05-24 ity of 00:00: [place] 00 Medical Branch Penicill Propensi Active Hives Other Terrence in G ty to 05-24 reaction( College adverse 00:00: s): of reaction 00 Dizziness Medic in s to e drug 0 Drug Active swelliong Common allergy Spirit - [facility] Social History Social Habit Start Date Stop Date Quantity Comments Source History [facility] of Alcohol Binge Medicine History [facility] of Alcohol Std Drinks Medici ne History of Tobacco Current Smoker Co mmon Spirit - Use [facility] Alcohol intake 2021-01-28 2021-01-28 Ex-drinker [facility] 00:00:00 00:00:00 (finding) [facility] Tobacco use and 2021-01-26 2021-01-[address] Melania kes exposure 00:00:00 00:00:00 [facility] Tobacco Comment 2021-01-26 2021-01-26 3-4 cigerettes [facility] 00:[facility]:00 00:00:00 per day [facility] Alcohol Comment 2021-01-07 2021-01-07 2000 quit [facility] Co llege of 00:00:00 00:00:00 Medicine History [facility] 2021-01-07 2021-01-07 1 [facility] ge of Alcohol Frequency 00:00:00 00:00:00 Medicin e Cigarettes smoked 2019-05-24 2019-05-24 Univers ity of current (pack per 00:00:00 00:00:00 ) - Reported Branch Sex [birth year] RONNIE Sparrow 00:00:00 00:00:00 Medical Center Smoking Status Start Date Stop Date Source Current Smoker 2022-05-17 00:00:00 Common Spiri t - [facility] Current some day smoker 2021-01-07 00:00:00 [facility] Medications Ordered Filled Start Stop Current Ordering [...] daily. of 57 Medicin e acetaminoph Yes [id number] 1{tbl} Take 1 [facility] en-codeine 5-07 9105 Tablet by Zhen robbins (TYLENOL 00:00: [...] MG 18:39: mouth Medical tablet 49 daily. Lloyd lisinopriL Yes 10mg QD Take [address] (PRINIVIL,Z 4-29 by mouth Luke s ESTRIL) 10 18:39: daily. Medic al MG tablet 49 Lloyd carvediloL Yes 3.125mg QD Take 3.[address] (COREG) 4-29 mg by [facility] 3.125 MG 18:39: mouth Medical tablet 49 daily. Lloyd lisinopriL Yes 10mg QD Take [address] (PRINIVIL,Z 4-29 by mouth Luke s ESTRIL) 10 18:39: daily. Medic al MG tablet 49 Lloyd carvediloL Yes 3.125mg QD Take 3.[address] (COREG) 4-29 mg by [facility]ukes 3.125 MG 18:39: mouth Medical tablet 49 daily. Lloyd LISINOPRIL Yes Take by [facility] OR 4-07 mouth College 18:09: daily. of 12 Medicin e carvedilol Yes 3.125mg Take 3.125 Terrence (COREG) 4-07 mg by [place] 3.125 MG 00:00: mouth two of tablet 00 times Medicin daily. e furosemide Yes [id number] 20mg Take 1 Univers 20 mg 1-18 tablet by ity of tablet 00:00: mouth [place] 00 every Medical morning. [place] furosemide Yes [id number] 20mg Take 1 Univers 20 mg 1-18 tablet by ity of tablet 00:00: mouth [place] 00 every Medical morning. Branch furosemide Yes [id number] 20mg Take 1 Univers 20 mg 1-18 tablet by ity of tablet 00:00: mouth [place] 00 every Medical morning. [place] furosemide Yes [id number] 20mg Take 1 Univers 20 mg 1-18 tablet by ity of tablet 00:00: mouth [place] 00 every Medical morning. Branch acetaminoph 2018-10 Yes [id number] 1{tbl} Take 1 Univers en-codeine 0-08 tablet by ity of (TYLENOL-CO 00:00: mouth [place] DEINE #3) 00 every 4 Medical 300-30 mg (four) Branch tablet hours as needed for Pain (scale 4-6). acetaminoph 2018-10 Yes [id number] 1{tbl} Take 1 Univers en-codeine 0-08 tablet by ity of (TYLENOL-CO 00:00: mouth [place] DEINE #3) 00 every 4 Medical 300-30 mg (four) Branch tablet hours as needed for Pain (scale 4-6). acetaminoph 2018-10 Yes [id number] 1{tbl} Take 1 Univers en-codeine 0-08 tablet by ity of (TYLENOL-CO 00:00: mouth [place] DEINE #3) 00 every 4 Medical 300-30 mg (four) Branch tablet hours as needed for Pain (scale 4-6). acetaminoph 2018-10 Yes [id number] 1{tbl} Take 1 Univers en-codeine 0-08 tablet by ity of (TYLENOL-CO 00:00: mouth [place] DEINE #3) 00 every 4 Medical 300-30 mg (four) Branch tablet hours as needed for Pain (scale 4-6). gabapentin 2018-0 Yes [id number] 300mg Take 1 Univers 300 mg 9-06 capsule by ity of capsule 00:00: mouth 3 [place] 00 (three) Medical times Branch daily. ibuprofen 2019-0 Yes [id number] 800mg Take 1 Univers 800 mg 9-06 tablet by ity of tablet 00:00: mouth [place] 00 every 6 Medical (six) Branch hours as needed for Pain (scale 4-6). gabapentin 2019-0 Yes [id number] 300mg Take 1 Univers 300 mg 9-06 capsule by ity of capsule 00:00: mouth 3 [place] 00 (three) Medical times Branch daily. ibuprofen 2019-0 Yes [id number] 800mg Take 1 Univers 800 mg 9-06 tablet by ity of tablet 00:00: mouth [place] 00 every 6 Medical (six) Branch hours as needed for Pain (scale 4-6). gabapentin 2019-0 Yes [id number] 300mg Take 1 Univers 300 mg 9-06 capsule by ity of capsule 00:00: mouth 3 [place] 00 (three) Medical times Branch daily. ibuprofen 2019-0 Yes [id number] 800mg Take 1 Univers 800 mg 9-06 tablet by ity of tablet 00:00: mouth [place] 00 every 6 Medical (six) Branch hours as needed for Pain (scale 4-6). gabapentin 2019-0 Yes [id number] 300mg Take 1 Univers 300 mg 9-06 capsule by ity of capsule 00:00: mouth 3 [place] 00 (three) Medical times Branch daily. ibuprofen 2019- Yes [id number] 800mg Take 1 Univers 800 mg 9-06 tablet by ity of tablet 00:00: mouth [place] 00 every 6 Medical (six) Branch hours as needed for Pain (scale 4-6). traMADol 50 2018- Yes [id number] 50mg Take 1 Univers mg tablet 8-19 tablet by ity o f 00:00: mouth [place] 00 every 6 Medical (six) Branch hours as needed for Pain (scale 4-6) or Pain (scale 7-10). traMADol 50 2018- Yes [id number] 50mg Take 1 Univers mg tablet 8-19 tablet by ity o f 00:00: mouth [place] 00 every 6 Medical (six) Branch hours as needed for Pain (scale 4-6) or Pain (scale 7-10). traMADol 50 2018- Yes [id number] 50mg Take 1 Univers mg tablet 8-19 tablet by ity o f 00:00: mouth [place] 00 every 6 Medical (six) Branch hours as needed for Pain (scale 4-6) or Pain (scale 7-10). traMADol 50 2019-0 Yes [id number] 50mg Take 1 Univers mg tablet 8-19 [...] 105.235 kg height 2022-02-15 08:00:00 70 [in_i] [facility] weight 2022-02-15 08:00:00 247.2 [lb_av] [facility] temperature 2022-02-15 08:00:00 98.5 [degF] [facility] bmi 2022-02-15 08:00:00 35.47 kg/m2 [facility] oximetry 2022-02-15 08:00:00 94 % [facility] respiratory rate 2022-02-15 08:00:00 16 /min Comm on [facility] blood pressure 2022-02-15 08:00:00 132 mm[Hg] [facility] - systolic [facility] blood pressure 2022-02-15 08:00:00 78 mm[Hg] [facility] diastolic [facility] height 2021-12-04 15:20:00 70 [in_i] [facility] weight 2021-12-04 15:20:00 242 [lb_av] [facility] temperature 2021-12-04 15:20:00 97.4 [degF] [facility] bmi 2021-12-04 15:20:00 34.72 kg/m2 Common S pirit - CHI [facility] oximetry 2021-12-04 15:20:00 96 % Common S pirit - CHI [facility] respiratory rate 2021-12-04 15:20:00 16 /min Comm on Spirit - [facility] blood pressure 2021-12-04 15:20:00 142 mm[Hg] Common Spirit - systolic [facility] blood pressure 2021-12-04 15:20:00 92 mm[Hg] Common Spirit - diastolic [facility] Heart rate 2021-02-26 13:13:00 83 /min [facility] temperature 2021-02-26 13:13:00 36.94 [facility] Body height 2021-02-26 13:13:00 185.4 cm [facility] Body weight 2021-02-26 13:13:00 105.235 kg [facility] BMI 2021-02-26 13:13:00 30.61 kg/m2 [facility] Systolic blood 2021-02-26 13:13:00 138 mm[Hg] [facility] of pressure Medicine Diastolic blood 2021-02-26 13:13:00 91 mm[Hg] [facility] of pressure Medicine WEIGHT 2021-01-29 05:02:00 110.6 kg HEIGHT 2021-01-27 08:19:00 182.9 cm WEIGHT 2021-01-27 08:19:00 101.424 kg HEIGHT 2021-01-26 08:52:00 182.9 cm WEIGHT 2021-01-26 08:52:00 105.235 kg Systolic blood 2021-01-07 18:06:00 158 mm[Hg] [facility] pressure Medicine Diastolic blood 2021-01-07 18:06:00 108 mm[Hg] [facility] of pressure Medicine Heart rate 2021-01-07 18:06:00 98 /min [facility] Body temperature 2021-01-07 18:06:00 36.78 [facility] Body height 2021-01-07 18:06:00 185.4 cm [facility] Body weight 2021-01-07 18:06:00 109.77 kg [facility] BMI 2021-01-07 18:06:00 31.93 kg/m2 [facility] Procedures Procedure Date / Time Performed Performing Clinician [facility] REFERRAL- 2022-04-19 05:01:00 Doctor Unassigned, No [facility] [place] REQUEST/RESPONSE Name Medical Branch REFERRAL- 2022-03-08 05:01:00 Doctor Unassigned, No [facility] [place] REQUEST/RESPONSE Name Medical Branch Plan of Care Planned Activity Planned Date Details Comments Source Future Scheduled 2029-05-28 Screening for malignant [facility] Test 00:00:00 neoplasm of colon Medical Ce nter (procedure) [code = 448910931] Future Scheduled 2029-05-28 Screening for malignant [facility] Test 00:00:00 neoplasm of colon Medical Ce nter (procedure) [code = 623601034] Future Scheduled 2029-05-28 Screening for malignant [facility] Test 00:00:00 neoplasm of colon Medical Ce nter (procedure) [code = 747015433] Future Scheduled 2029-05-28 Screening for malignant [facility] Test 00:00:00 neoplasm of colon Medical Ce nter (procedure) [code = 236381716] Future Scheduled 2029-05-28 Screening for malignant [facility] Test 00:00:00 neoplasm of colon Medical Ce nter (procedure) [code = 343727179] Future Scheduled 2029-05-28 Screening for malignant [facility] Test 00:00:00 neoplasm of colon Medical Ce nter (procedure) [code = 939127629] Future Scheduled 2022-10-[address] [facility] Test 00:00:00 (12+) [code = Medical Center DEPRESSION SCREENING (12+)] Future Scheduled 2022-06-03 INFLUENZA VACCINE (#1) [facility] Test 00:00:00 [code = INFLUENZA Medical Ce nter VACCINE (#1)] Future Scheduled 2022-06-03 INFLUENZA VACCINE (#1) [facility] Test 00:00:00 [code = INFLUENZA Medical Ce nter VACCINE (#1)] Future Scheduled 2022-06-03 INFLUENZA VACCINE (#1) [facility] Test 00:00:00 [code = INFLUENZA Medical Ce nter VACCINE (#1)] Future Scheduled 2022-01-[address] [facility] Test 00:00:00 Counseling and Medical Cente r Screening (12+) [code = Tobacco Cessation Counseling and Screening (12+)] Future Scheduled 2021-10-[address] [facility] Test 00:00:00 (12+) [code = Medical Center DEPRESSION SCREENING (12+)] Future Scheduled 2021-10-[address] [facility] Test 00:00:00 (12+) [code = Medical Center DEPRESSION SCREENING (12+)] Future Scheduled 2021-02-27 Screening for malignant [facility] Test 09:44:45 neoplasm of colon of Medicin e (procedure) [code = 664624217] Future Scheduled 2021-02-27 COVID-19 Vaccine (1) [place] [facility] Test 09:44:45 [code = COVID-19 of Medicine Vaccine (1)] Future Scheduled 2021-02-27 TETANUS SHOT (ADULT) [facility] Test 09:44:45 [code = TETANUS SHOT of Medi cine (ADULT)] Future Scheduled 2021-02-27 Hepatitis C screening [facility] Test 09:44:45 (procedure) [code = of Medic ine 886736855] Future Scheduled 2021-02-27 Human immunodeficiency B [facility] College Test 09:44:45 virus screening of Medicine (procedure) [code = 192742530] Future Scheduled 2021-02-27 ZOSTER VACCINE (1 of 2) [facility] Test 09:44:45 [code = ZOSTER VACCINE of Me dicine (1 of 2)] Future Scheduled 2021-02-27 FLU VACCINE > 6 MONTHS B [facility] College Test 09:44:45 [code = FLU VACCINE > 6 of M edicine MONTHS] Future Scheduled 2021-02-27 BMI FOLLOW UP PLAN [employer] Test 09:44:45 [code = BMI FOLLOW UP of Med icine PLAN] Future Scheduled 2021-02-26 FL ESOPHAGRAM COMPLETE 1 Occurrences [facility] Test 08:32:02 [code = 21347-8] starting of Medicine 02/26/2021 until 08/29/2022 Future Scheduled 2021-02-26 FLANNERY PH EGD [code = 1 Occurrences Ba or College Test 08:32:02 71049] starting of Medicine 02/26/2021 until 08/29/2021 Future Scheduled 2021-02-26 ESOPHAGEAL 1 Occurrences [facility] Col [facility]ge Test 08:32:02 MANOMETRY/MOTILITY starting [...] [facility] Test 00:00:00 [code = 31106995] Medical Ce nter Future Scheduled 2000 Lipid panel (procedure) [facility] Test 00:00:00 [code = 82414672] Medical Ce nter Future Scheduled 2000 Lipid panel (procedure) [facility] Test 00:00:00 [code = 43321925] Medical Ce nter Future Scheduled 1984 DTAP/TDAP/TD [...] Radha ter VACCINE (#1)] Future Scheduled 1965 CT Colonography (combo) [facility] Test 00:00:00 [code = CT Colonography [facility] (combo)] Future Scheduled 1965 Screening for malignant [facility] Test 00:00:00 neoplasm of colon Medical Ce nter (procedure) [code = 326041294] Future Scheduled 1965 Screening for malignant [facility] Test 00:00:00 neoplasm of colon Medical Ce nter (procedure) [code = 272729391] Future Scheduled 1965 Sigmoidoscopy [code = [facility] Test 00:00:00 Sigmoidoscopy] Medical Cente r Future Scheduled 1965 CT Colonography (combo) [facility] Test 00:00:00 [code = CT Colonography Medi [facility] (combo)] Future Scheduled 1965 Screening for malignant [facility] Test 00:00:00 neoplasm of colon Medical Ce nter (procedure) [code = 626815233] Future Scheduled 1965 Screening for malignant [facility] Test 00:00:00 neoplasm of colon Medical Ce nter (procedure) [code = 503734556] Future Scheduled 1965 Sigmoidoscopy [code = [facility] Test 00:00:00 Sigmoidoscopy] Medical Cente r Future Scheduled 1965 Screening for malignant [facility] Test 00:00:00 neoplasm of colon Medical Ce nter (procedure) [code = 004520877] Future Scheduled 1965 Screening for malignant [facility] Test 00:00:00 neoplasm of colon Medical Ce nter (procedure) [code = 130870314] Future Scheduled 1965 Sigmoidoscopy [code = [facility] Test 00:00:00 Sigmoidoscopy] Medical Cente r Future Scheduled 1965 CT Colonography (combo) [facility] Test 00:00:00 [code = CT Colonography [facility] (combo)] Future Scheduled Screening for malignant [facility] Test neoplasm of colon of Medicin e (procedure) [code = 997015719] Future Scheduled TETANUS SHOT (ADULT) [place] [employer] Test [code = TETANUS SHOT of [facility] (ADULT)] Future Scheduled COVID-19 Vaccine (1) [place] [employer] Test [code = COVID-19 of Medicine Vaccine (1)] Future Scheduled Hepatitis C screening [facility] or College Test (procedure) [code = of Medic ine 740575635] Future Scheduled Human immunodeficiency B [facility] Test virus screening of Medicine (procedure) [code = 237557694] Future Scheduled ZOSTER VACCINE (1 of 2) [facility] Test [code = ZOSTER VACCINE of Me dicine (1 of 2)] Future Scheduled FLU VACCINE > 6 MONTHS [facility] Test [code = FLU VACCINE > 6 of M edicine MONTHS] Future Scheduled BMI FOLLOW UP PLAN [facility] r College Test [code = BMI FOLLOW UP of Med icine PLAN] Encounters Start End Encounter Admission Attending Care Care Encounter Source Date/Time Date/Time Type Type Clinicians Facility Department ID 2022-08-12 Outpatient Char [facility] [id number] Common 16:04:01 Alana [id number] [facility] 2022-07-29 Inpatient CANDELARIA BOB [facility] [id number] [place] 09:30:00 -[id number] [facility] 2022-06-16 Outpatient Lynn, STLMLC STLMLC [id number] Common 09:17:01 Alana [facility] 2022 Outpatient Lynn, STLMLC STLMLC [id number] Common 08:34:00 Alana [facility] 2022-04-19 Outpatient Lynn, STLMLC STLMLC [id number] Common 16:01:02 Alana [facility] 2022-04-16 Outpatient Lynn, STLMLC STLMLC [id number] Common 15:49:00 Alana [facility] 2022-03-03 Outpatient Lynn, STLMLC STLMLC [id number] Common 08:37:01 Alana [facility] 2022-02-25 Outpatient Lynn, STLMLC STLMLC [id number] Common 09:26:01 Alana [facility] 2022-02-03 Inpatient HOSEA SaucedoCL OUTD [id number] [facility] 15:30:[address] 2021-12-29 Outpatient Lynn, STLMLC STLMLC [id number] Common 14:48:01 Alana [facility] 2021-12-07 Outpatient Lynn, STLMLC STLMLC [id number] Common 15:52:01 Alana [facility] 2021-12-04 Outpatient Lynn, STLMLC STLMLC [id number] Common 11:33:02 Alana [facility] 2021-10-28 Outpatient Lynn, STLMLC STLMLC [id number] Common 14:37:56 Alana [facility] 2021-10-28 Outpatient Lynn, STLMLC STLMLC [id number] Common 12:27:10 Alana [facility] 2021-10-28 Outpatient Char STREGINA STLMLC [id number] Common 12:27:00 Alana [id number] [facility] 2021-10-28 Outpatient Char STREGINA STLMLC [id number] Common 11:09:38 Alana 89405 [facility] 2021-08-01 Emergency [facility] [id number] Univers 17:52:03 ity of [facility] 2021-07-11 Outpatient TRICIA, SLE Surgery [id number] [facility] 13:16:42 SANTHOSH 2022-06-15 2022-06-15 (TEL) STLC STLC [id number] Co mmon 00:00:00 00:00:00 [facility] 2022-06-07 2022-06-07 Letter CARMEN Pardo [id number] Univers 00:00:00 00:00:00 (Out) Alana Aydee HOPKINS [id number] ity of [place] [id number] Kem as [phone] [facility] 043 Branch 2022-05-27 2022-05-27 Letter CARMEN Pardo [id number] Univers 00:00:00 00:00:00 (Out) Alana Bajwa SANDEEP [id number] ity of [place] [id number] Kem as [phone] [facility] 043 Branch 2022-05-11 2022-05-11 ([facility]EL) [facility] [id number] Co mmon 00:00:00 00:00:00 [facility] 2022-04-19 2022-04-19 Orders Doctor CARMEN [id number] Univers 00:00:00 00:00:00 Only Unassigned, SANDEEP [id number] ity of [place] [facility] [id number] Kem as [phone] [facility] 009 Branch 2022-03-16 2022-03-16 (TEL) [facility] [id number] Co mmon 00:00:00 00:00:00 [facility] 2022-03-10 2022-03-10 (TEL) STLMLC STLMLC [id number] Co mmon 00:00:00 00:00:00 [facility] 2022-03-08 2022-03-08 Orders Doctor CARMEN [id number] Univers 00:00:00 00:00:00 Only Unassigned, SANDEEP [id number] ity of [facility] [id number] Kem as [phone] [place] [address] Branch 2022-03-03 2022-03-03 (TEL) STLMLC STLMLC [id number] Co mmon 00:00:00 00:00:00 [facility] 2022-02-25 2022-02-25 (TEL) STLMLC STLMLC [id number] Co mmon 00:00:00 00:00:00 [facility] 2022-02-15 2022-02-15 OFFICE STLMLC STLMLC [id number] Co mmon 00:00:00 00:00:00 VISIT EST Spir it PT LEVEL 3 - [facility] 2022-01-14 2022-01-14 Outpatient HOSEA GarciaPM HCAPM [id number] [facility] 17:39:00 17:39:[address] 2021-12-04 2021-12-04 OFFICE STLMLC STLMLC [id number] Co mmon 00:00:00 00:00:00 VISIT Spirit ESTAB PT - CHI LEVEL 4 [facility] 2021-12-03 2021-12-03 (TEL) STLMLC STLMLC [id number] Co mmon 00:00:00 00:00:00 [facility] 2021-08-28 2021-08-28 (TEL) STLMLC STLMLC [id number] Co mmon 00:00:00 00:00:00 [facility] 2021-02-25 2021-02-26 Office MARY CLARKE [id number] [facility] 14:33:56 13:31:14 Visit SANTHOSH AMBULATOR 350.1.13.21 College Y [id number] of [phone] [facility] [facility] taj 810 e 2021-02-25 2021-02-25 Outpatient TRICIA VANIA SLE [id number] [facility] 00:00:00 00:00:00 SANTHOSH 2021-01-26 2021-01-26 Outpatient EL SLEH [facility] [id number] [facility] 00:00:00 00:00:00 2021-01-26 2021-01-26 Outpatient EL [facility] [id number] [facility] 00:00:00 00:00:00 2021-01-26 2021-01-26 Outpatient EL [facility]H [id number] [facility] 00:00:00 00:00:00 2021-01-26 2021-01-26 Outpatient SLEH SLEH [id number] [facility] 00:00:00 00:00:00 2021-01-26 2021-01-26 Outpatient SLEH SLE [id number] SLEH 00:00:00 00:00:00 2021-01-23 2021-01-23 Outpatient EL SLEH SLEH [id number] [facility] 00:00:00 00:00:00 2021-01-15 2021-01-15 Outpatient LUIS Clarke [facility] [id number] [facility] 13:30:00 13:30:00 [id number] [facility] 2021-01-07 2021-01-07 Office MARY Clarke [id number] [place] [address] 12:47:11 15:02:43 Visit Santhosh AMBULATOR 350.1.13.21 College Zoya Y 0.2.7.2.686 of [id number] [facility] taj 810 e 2020-11-03 2020-11-03 Outpatient STLMLC STLMLC [id number] Common 00:00:00 00:00:00 [facility] 2020-02-13 2020-02-13 Orders Doctor MORALES [id number] 00:00:00 00:00:00 Only Unassigned, [facility]13.10 [facility] 4.2.7.2.686 [id number] 2019-11-26 2019-11-26 Outpatient Alexis Landa [id number] Common 11:00:00 11:00:00 t [facility] 2019-07-30 2019-07-30 [facility] PERRI Holm [id number] 07:46:52 23:59:00 Encounter Sacha Burt 350.1.13.10 [facility] 4.2.7.2.686 [id number] 2019-07-30 2019-07-30 Outpatient R ALTA [facility] [id number] Univers 00:00:00 00:00:00 SACHA [facility] 2019-07-20 2019-07-20 Outpatient R [facility]ION [facility] [id number] Univers 00:00:00 00:00:00 ARMANDO [facility] 2019-07-12 2019-07-12 [facility] PERRI Holm [id number] 07:42:39 23:59:00 Encounter Sacha Burt 350.1.13.10 [facility] 4.2.7.2.686 [id number] 2019-07-12 2019-07-12 [facility] [id number] Univers 00:00:00 00:00:00 SACHA [facility] 2019-06-28 2019-06-28 Outpatient R WILLIAM [facility] [id number] Univers 17:35:25 23:59:00 ORAUTUMN [facility] 2019-06-13 2019-06-13 Patient TANYA Rodríguez [id number] 00:00:00 00:00:00 Outreach Taran CARVER 350.1.13.10 [facility] 4.2.7.2.686 [id number] 2019-06-08 2019-06-08 Office Yunior [facility] [id number] 14:48:52 15:03:52 Visit Carmen Carver 350.1.13.10 [facility] 4.2.7.2.686 [facility] [id number] [facility] 408 Results Test Description Test Time Test Comments Results Result Sourc e Comments RAD, CHEST, 2 2021-02-01 Reason for VIEWS 7 Exam:->[id number] 08:34:00 (ICD-10-CM) - Status [facility] post lung surgery, [facility] J44.9 (ICD-10-CM) - CENTERName: Rico LINDER : [...] lower lung field atelectasis. Signed: Roxanne Hayden Verified Date/Time: 02/26/2021 08:34:51 Reading Location: [facility] Reading Room [address] [place] [address] UE EXAM Surgical Pathology 3 Report Case: 17:10:00 [id number] Authorizing Provider: Santhosh Clarke Jr., Collected: 01/27/2021 04:20 PM Ordering Location: [facility] Received: 01/28/2021 09:11 AM PERIOPERATIVE SERVICES Pathologist: Savanna Andrews MD Specimen: Lung, Left Upper Lobe, LEFT UPPER LOBE WEDGE RESECTION A. LUNG, LEFT UPPER LOBE, WEDGE RESECTION:- MULTIPLE LUNG BULLAE- INTRAPARENCHYMAL HEMORRHAGE WITH HEMOSIDERIN LADEN MACROPHAGES- ONE BENIGN LYMPH NODE (0/1) Signing Pathologist Direct Phone Line: [phone] chhaya signed by Savanna Andrews MD on 02/02/2021 at 5:10 [id number], left upper lobeA. Received fresh labeled with [...] margin. Remaining parenchyma is red and spongy. Software Validation Technician sections (nodule entirely these are submitted.Section code:A1: Closest parenchymal margin to nodule, en faceA2: Anthracotic nodule, bisected, entirelyA3-A4: Software Validation Technician of bullaeA5: Uninvolved parenchymaA6: Uninvolved parenchyma with pleuraChelsea KIRIT Hu PA (ASCP)cmPerformed.[facility], Department of Pathology, [address] [place] [address], [facility], [facility] of [facility], [address] [place] [address], [facility], [facility] of [facility]ology, [address] [place] [address], RAD, CHEST, 1 2021-01-02 Reason for exam:->CT VIEW, NON DEPT 9 removal 12:52:00 [facility] CENTERName: LAMAR LINDER : 1965 Sex: M FI [...] MDReport Verified Date/Time: 01/29/2021 12:52:58 Reading Location: [facility] Radiology Reading Room , CHEST, 1 2021-01-02 Reason for VIEW, NON DEPT 9 exam:->s/p L VATS, 04:34:00 bullectomy, chest [facility] tube placementShould [facility] this be performed at CENTERName: KAILASH, the bedside?->Yes LAMAR WHITLOCK : 1965 Sex: M [facility] REPORT RAD, CHEST, 1 VIEW, NON DEPT [...] VATS, 05:56:00 bullectomy, chest [facility]I tube placementShould [facility] this be performed at C[facility]Name: [facility], the bedside?->Yes LAMAR WHITLOCK : 1965 Sex: M [facility] REPORT RAD, CHEST, 1 VIEW, NON DEPT INDICATION: s/p L VATS, bullectomy, chest tube placement COMPARISON: Exam from eight hours prior FINDINGS: Portable frontal view of the chest. IMPRESSION: Support Lines: Stable. Lungs and pleura: Slightly increasing bilateral parenchymal opacities suggestive of atelectasis or edema. No sizable effusion. No pneumothorax.Heart and mediastinum: Stable contours.Additional findings: None. Signed: Chinyere Clark Verified Date/Time: 01/28/2021 05:56:34 , CHEST, 1 2021-01-02 Reason for VIEW, NON DEPT 7 exam:->s/p left 18:44:00 VATS, bullectomy, [facility] chest tube [facility] placementShould this CENTERName: kristin LINDER performed at the [facility] : bedside?->Yes 1965 Sex: M FI NAL [...] MDReport Verified Date/Time: 01/27/2021 18:44:25 Reading Location: [facility] B1 C013W Consult Reading Room -COV2/RT-PCR ([facility]) 2021-01-27 04:41:00 Test Item Value Reference Range Interpretation Comme nts SARS-COV2/RT-PCR (test code = 9723298) Negative Not Detected, N egative, See external report for linked test SARS-COV-2 PERFORMING LAB (test code = [facility] 4426612) Negative result for this test determines that [...] the White SARS-CoV-2 assay.Fact Sheet for Healthcare Providers:https://www.[employer].white/moises/RT_SAR H-IaU-4_EIV_Mnfn_Qkqzd_75-132072.pdfFact Sheet for Healthcare Patients:https://www.molecular.white/s al/TU_NPDI-ClM-6_Ididpbs_Rtbj_Zsgeg_IR_09-717822W9.pdfPerforming Laboratory:[place] [address] [place] [address] RAD, CHEST, PA OR AP, 1 [id number] 16:27:00Reason for exam:->pre op eval [facility] : 1965 Sex: [...] heart shadow is normal in size. The thoracicaorta is mildly tortuous. Degenerative changes are present in the spine. Impression: No evidence of acute cardiopulmonary disease. Signed: Lamar Hannon MDRepcenterpoint medical center Verified Date/Time: 01/26/2021 16:27:16 Reading Location: [facility] Radiology Reading Room COMPREHENSIVE METABOLIC [id number] 15:47:00 Test Item Value Reference Range Interpretation [...] S NOT APPLICABLE FOR DIALYSIS PATIEN TS. Die Trimmer ID - [id number] 15:42:00 Test Item Value Reference Range Interpretation Comments PARTIAL THROMBOPLASTIN TIME 28.9 seconds 22.5-36.0 (BEAKER) (test code = 760) PROTHROMBIN TIME/[id number] 15:41:00 Test Item Value Reference Range Interpretation Comments PROTIME (BEAKER) 13.5 seconds 11.9-14.2 (test code = 759) INR (BEAKER) (test 1.07 See_Comment [Automat ed message] code = 370) The system Framebench generated this result transmitted ref erence range: [...]
--- NOTE | 2022-11-02 12:49 | RAD REPORT ---
EXAM DESCRIPTION: US - Extremity Venous Uni Ltd - 11/02/2022 12:37 pm CLINICAL HISTORY: SWELLING Leg swelling and edema. COMPARISON: Extrem Venous W Compress Corey dated 06/18/2022 FINDINGS: Left lower extremity venous system was interrogated with Doppler technique. Normal flow, c ompressibility and augmentation was noted. There is no DVT present. IMPRESSION: No evidence of left lower extremity deep venous thrombosis.
[2022-11-02 12:59] LABS: Absolute Lymphocytes (CBC) 1.1 K/uL (0.7-4.9); Lymphocytes % 22.5 % (15.3-44.8); MPV 7.3 fL (7.6-11.3); RBC Red Blood Cell Count 5.28 M/uL (4.33-5.43)
[2022-11-02 13:00] LABS: Protime INR 1.01
[2022-11-02] MEDS ORDERED: HYDROCODONE/APAP 5/325 MG TAB ONE (13:08)
[2022-11-02 13:17] LABS: Albumin 3.4 g/dL (3.4-5.0); Bilirubin Direct 0.2 mg/dL (0-0.2); Bilirubin Total 0.5 mg/dL (0.2-1.0); Magnesium 2.4 mg/dL (1.6-2.4); Protein, Total 7.6 g/dL (6.4-8.2); Troponin High Sensitivity 8.6 pg/mL (<58.9)
--- NOTE | 2022-11-02 13:31 | ER ---
Nurse's Notes [facility] Name: Farhad Johnson Age: 57 yrs Sex: Male : 1965 Arrival Date: 11/02/2022 Time: 11:56 Bed 4 Private MD: Alana Pardo Diagnosis: Local infection of the skin and subcutaneous tissue, unspecified Presentation: 11/02 12:08 Chief complaint: Pt with XRAY at this time. vg1 12:13 Chief complaint: Patient states: ALFREDO leg swelling that 'comes and goes' x 1 year; vg1 stated Left leg is more swollen than usual. Coronavirus screen: Vaccine status: Patient reports receiving the 2nd dose of the covid vaccine. Client denies travel out of the [place] in the last 14 days. Ebola Screen: Patient negative for fever greater than or equal to 101.5 degrees Fahrenheit, and additional compatible Ebola Virus Disease symptoms Patient denies exposure to infectious person. Initial Sepsis Screen: Does the patient meet any 2 criteria? No. Patient's initial sepsis screen is negative. Does the patient have a suspected source of infection? No. Patient's initial sepsis screen is negative. Risk Assessment: Do you want to hurt yourself or someone else? Patient reports no desire to harm self or others. Onset of symptoms was October 2021. 12:13 Method Of Arrival: Ambulatory vg1 12:13 Acuity: CARIDAD 3 vg1 Triage Assessment: 12:15 General: Appears in no apparent distress. uncomfortable, Behavior is calm, cooperative. vg1 Pain: Complains of pain in left leg Pain currently is 5 out of 10 on a pain scale. Neuro: Level of Consciousness is awake, alert, obeys commands, Oriented to person, place, time, situation. Respiratory: Airway is patent Respiratory effort is even, unlabored. Musculoskeletal: Circulation, motion, and sensation intact. Historical: - Allergies: 12:15 PENICILLINS; vg1 - PMHx: 12:15 COLON CA; liver cancer; Lung Cancer, stage 4; vg1 - PSHx: 12:15 top lobe LEFT lung removed; vg1 - Immunization history:: Client reports receiving the 2nd dose of the Covid vaccine. - Social history:: Smoking status: Patient reports the use of cigarette tobacco products, denies chronic smoking, but will smoke occasionally. Screenin:48 [facility] ED Fall Risk Assessment (Adult) History of falling in the last 3 months, iw including since admission No falls in past 3 months (0 pts). Abuse screen: Denies threats or abuse. Denies injuries from another. Nutritional screening: No deficits noted. Tuberculosis screening: No symptoms or risk factors identified. Assessment: 12:17 Reassessment: pt taken to US via wheelchair. vg1 12:52 General: Appears in no apparent distress. Behavior is calm, cooperative. Pain: iw Complains of pain in left leg. Neuro: Level of Consciousness is awake, alert, obeys commands, Oriented to person, place, time, situation, Moves all extremities. Full function. Cardiovascular: Patient's skin is warm and dry. Edema is 2+ to left midcalf, left ankle and left foot. Respiratory: Respiratory effort is even, unlabored, Respiratory pattern is regular, symmetrical. Vital Signs: 12:13 Pulse 90; Resp 18; Temp 97.9(O); Pulse Ox 97% on R/A; Weight 99.79 kg; Height 6 ft. 0 vg1 in. (182.88 cm); Pain 5/10; 13:01 BP 125 / 77; Pulse 85; Resp 15; Pulse Ox 94% on R/A; jl7 12:13 Body Mass Index 29.84 (99.79 kg, 182.88 cm) vg1 ED Course: 11:56 Patient arrived in ED. as 11:56 Alana Pardo is Private Physician. as 11:57 Claudette Werner FNP is [facility]. jh7 11:57 Yogi Bethea MD is Attending Physician. jh7 12:15 Triage completed. vg1 12:15 Arm band placed on. vg1 12:19 XRAY Chest (1 view) In Process Unspecified. EDMS 12:33 Eleni Morejon, RN is Primary Nurse. iw 12:36 Eleni Morejon, RN is Primary Nurse. iw 12:39 US Extremity Venous Unilateral Ltd In Process Unspecified. EDMS 12:45 Initial lab(s) drawn, by me, sent to lab. Inserted saline lock: 22 gauge in left hand, iw using aseptic technique. 13:01 EKG done, by ED staff, reviewed by Claudette ALVES. jl7 13:30 Alana Pardo is Referral Physician. jh7 13:55 Patient has correct armband on for positive identification. iw 13:55 No provider procedures requiring assistance completed. IV discontinued, intact, iw bleeding controlled, No redness/swelling at site. Pressure dressing applied. Administered Medications: 13:07 Drug: HYDROcodone-acetaminophen 5 mg-325 mg 1 tabs Route: PO; iw 13:55 Follow up: Response: No adverse reaction iw Medication: 12:48 VIS not applicable for this client. iw Outcome: 13:31 Discharge ordered by . Omar 13:55 Discharged to home ambulatory, with family. iw 13:55 Condition: good 13:55 Discharge instructions given to patient, family, Instructed on discharge instructions, follow up and referral plans. medication usage, Demonstrated understanding of instructions, follow-up care, medications, Prescriptions given X 1. 14:08 Patient left the ED. iw Signatures: Dispatcher [employer] Tiffanie Vickers Irene, RN RN iw Inés Begum RN RN jl7 Irena Waldrop RN RN vg1 Claudette Werner, VALUE STREAM MANAGER VALUE STREAM MANAGERBanner Thunderbird Medical Center
--- NOTE | 2022-11-02 13:31 | EDPHYS ---
Physician Documentation [facility] Name: Farhad Johnson Age: 57 yrs Sex: Male : 1965 Arrival Date: 11/02/2022 Time: 11:56 Bed 4 Private MD: Alana Harrell ED Physician Yogi Bethea HPI: 11/02 12:15 This 57 yrs old Male presents to ER via Ambulatory with complaints of Leg Swelling. jh7 12:15 The patient presents with swelling, tenderness. The complaints affect the left ankle jh7 and left midcalf. Onset: The symptoms/episode began/occurred 3 month(s) ago, and became worse 3 day(s) ago. Associated signs and symptoms: Pertinent negatives fever, nausea, numbness, tingling, vomiting. 57-year-old male presents with left intermittent leg swelling over the past 3 months. Reports that the right leg occasionally swells but is not swollen today. He states that he developed a "knot" on the side of his calf 3 days ago and says that it is red and tender. PCP Olamide harrell. History of liver, colon, and lung cancer stage IV. Not currently receiving any chemotherapy.. Historical: - Allergies: 12:15 PENICILLINS; vg1 - PMHx: 12:15 COLON CA; liver cancer; Lung Cancer, stage 4; vg1 - PSHx: 12:15 top lobe LEFT lung removed; vg1 - Immunization history:: Client reports receiving the 2nd dose of the Covid vaccine. - Social history:: Smoking status: Patient reports the use of cigarette tobacco products, denies chronic smoking, but will smoke occasionally. ROS: 12:15 Constitutional: Negative for fever, chills, and weight loss, Eyes: Negative for injury, jh7 pain, redness, and discharge, Neck: Negative for injury, pain, and swelling, Cardiovascular: Negative for chest pain, palpitations, and edema, Respiratory: Negative for shortness of breath, cough, wheezing, and pleuritic chest pain, Abdomen/GI: Negative for abdominal pain, nausea, vomiting, diarrhea, and constipation, Neuro: Negative for headache, weakness, numbness, tingling, and seizure. 12:15 MS/extremity: Positive for swelling, tenderness, Negative for injury or acute deformity. 12:15 Skin: Positive for erythema. 12:15 All other systems are negative. Exam: 12:15 Constitutional: This is a well developed, well nourished patient who is awake, alert, jh7 and in no acute distress. Head/Face: Normocephalic, atraumatic. Eyes: Pupils equal round and reactive to light, extra-ocular motions intact. Lids and lashes normal. Conjunctiva and sclera are non-icteric and not injected. Cornea within normal limits. Periorbital areas with no swelling, redness, or edema. Neck: Trachea midline, no thyromegaly or masses palpated, and no cervical lymphadenopathy. Supple, full range of motion without nuchal rigidity, or vertebral point tenderness. No Meningismus. Cardiovascular: Regular rate and rhythm with a normal S1 and S2. No gallops, murmurs, or rubs. Normal PMI, no JVD. No pulse deficits. Respiratory: Lungs have equal breath sounds bilaterally, clear to auscultation and percussion. No rales, rhonchi or wheezes noted. No increased work of breathing, no retractions or nasal flaring. Abdomen/GI: Soft, non-tender, with normal bowel sounds. No distension or tympany. No guarding or rebound. No evidence of tenderness throughout. Neuro: Awake and alert, GCS 15, oriented to person, place, time, and situation. Motor strength 5/5 in all extremities. Sensory grossly intact. Normal gait. 12:15 Musculoskeletal/extremity: ROM: intact in all extremities, Circulation is intact in all extremities. Pulses: are normal with no appreciated deficits, Perfusion: the extremity is normally perfused throughout, pink, warm, with brisk capillary refill, Sensation intact. Very mild (+1) edema of the left calf and ankle that is non-pitting. 12:15 Skin: cellulitis, that is mild, on the Left distal medial tibia, 4 cm area of erythema and TTP with no fluctuance or induration present. Vital Signs: 12:13 Pulse 90; Resp 18; Temp 97.9(O); Pulse Ox 97% on R/A; Weight 99.79 kg; Height 6 ft. 0 vg1 in. (182.88 cm); Pain 5/10; 13:01 BP 125 / 77; Pulse 85; Resp 15; Pulse Ox 94% on R/A; jl7 12:13 Body Mass Index 29.84 (99.79 kg, 182.88 cm) vg1 MDM: 11:58 Patient medically screened. [facility] 13:25 Differential diagnosis: DVT, abscess, cellulitis. Data reviewed: vital signs, nurses [facility] notes, lab test result(s), EKG, radiologic studies, ultrasound. I considered the following discharge prescriptions or medication management in the emergency department Medications were administered in the Emergency Department. See MAR. Independent interpretation of the following test(s) in the Emergency Department EKG: See my EKG interpretation above. Historians other than the Patient: Spouse/Significant Other: . Care significantly affected by the following chronic conditions: Cancer. Counseling: I had a detailed discussion with the patient and/or guardian regarding: the historical points, exam findings, and any diagnostic results supporting the discharge/admit diagnosis, to return to the emergency department if symptoms worsen or persist or if there are any questions or concerns that arise at home. ED course: Mild cellulitis/local skin infection versus early abscess. Will treat outpatient with antibiotics with return precautions if the redness spreads or fever develops. Informed the patient and his of all lab work (elevated LFTs normal for Pt) and imaging.. 11/02 12:03 Order name: Basic Metabolic Panel; Complete Time: 13: [facility] 11/02 12:03 Order name: CBC with Diff; Complete Time: 13: [facility] 11/02 12:03 Order name: LFT's; Complete Time: 13: [facility] 11/02 12:03 Order name: Magnesium; Complete Time: 13: [facility] 11/02 12:03 Order name: NT PRO-BNP; Complete Time: 13: [facility] 11/02 12:03 Order name: PT-INR; Complete Time: 13: [facility] 11/02 12:02 Order name: US Extremity Venous Unilateral Ltd; Complete Time: 13: [facility] 11/02 12:03 Order name: Troponin HS; Complete Time: 13: [facility] 11/02 12:03 Order name: XRAY Chest (1 view) [facility] 11/02 12:03 Order name: EKG; Complete Time: 12:04 [facility] 11/02 12:03 Order name: Cardiac monitoring; Complete Time: 13: [facility] 11/02 12:03 Order name: EKG - Nurse/Tech; Complete Time: 13: [facility] 11/02 12:03 Order name: IV Saline Lock; Complete Time: 12: [facility] 11/02 12:03 Order name: Labs collected and sent; Complete Time: [facility] 11/02 12:03 Order name: O2 Per Protocol; Complete Time: 11/02 12:03 Order name: O2 Sat Monitoring; Complete Time: : EC:56 Rate is 85 beats/min. Rhythm is regular. Right axis deviation noted. QRS is negative in [facility] lead V1. VA interval is normal at 152 msec. QRS interval is normal at 84 msec. QT interval is normal at 368 msec. No Q waves. T waves are Normal. No ST changes noted. Clinical impression: Sinus Rhythm w/ PACs. Administered Medications: 13:07 Drug: HYDROcodone-acetaminophen 5 mg-325 mg 1 tabs Route: PO; iw 13:55 Follow up: Response: No adverse reaction Disposition: 18:09 Co-signature as Attending Physician, Yogi Bethea MD I reviewed the patient's care rn provided by the Advanced Practice Provider and agree with the diagnosis and treatment plan. Disposition Summary: 11/02/22 13:31 Discharge Ordered Location: Home [facility] Problem: new [facility] Symptoms: are unchanged [facility] Condition: Stable [facility] Diagnosis - Local infection of the skin and subcutaneous tissue, unspecified [facility] Followup: [facility] - With: Alana Harrell - When: 2 - 3 days - Reason: Recheck today's complaints Discharge Instructions: - Discharge Summary Sheet [facility] - Cellulitis, Adult [facility] Forms: - Medication Reconciliation Form [facility] - Thank You Letter [facility] - Antibiotic Education [facility] Prescriptions: - Bactrim DS 800-160 mg Oral Tablet - take 1 tablet by ORAL route every 12 hours for 10 days; 20 tablet; Refills: 0, jh7 Product Selection Permitted Signatures: Dispatcher [employer] Eleni Leon, RN Yogi Law MD MD rn Garcia, Victoria, RN RN 1 Claudette Werner FNP THRASHER FEEDER [facility]
[2022-11-02 14:27] VITALS: TEMP 97.9
[2022-11-02 14:33] VITALS: BP 125/77; O2SAT 94
== END 2022-11-02 14:08 | disposition home or self-care (01) ==
LOC: ER 11:53
DX: L08.9 Local infection of the skin and subcutaneous tissue, unspecified (principal); F17.210 Nicotine dependence, cigarettes, uncomplicated; Z85.038 Personal history of other malignant neoplasm of large intestine; Z85.05 Personal history of malignant neoplasm of liver; Z85.118 Personal history of other malignant neoplasm of bronchus and lung
CPT/HCPCS: 36415; 71045; 80048; 80076; 83735; 83880; 84484; 85025; 85610; 93005; 93971

== ENCOUNTER → 2023-10-25 | Emergency (ER) | payer OTHER ==
[~2023-10-25] MED LIST: HYDROMORPHONE HCL 1 MG/ML INJ ONE; HYDROMORPHONE HCL 2 MG/ML inj ONE; NA CHLORIDE 0.9% 1,000 ML ONE; ONDANSETRON 4 MG/2 ML VIAL ONE
[2023-10-25 07:11] LABS: Absolute Lymphocytes (CBC) 1.2 K/uL (0.7-4.9); Hematocrit 48.2 % (39.6-49.0); Lymphocytes % 22.3 % (15.3-44.8); MCV 88.7 fL (80-100); MPV 7.3 fL (7.6-11.3); Platelets 301 thou/uL (152-406); RBC Red Blood Cell Count 5.43 M/uL (4.33-5.43)
[2023-10-25 07:21] LABS: Protime INR 1.04
--- NOTE | 2023-10-25 07:29 | RAD REPORT ---
EXAM DESCRIPTION: CTChest Abd Pelvis Wo Con - 10/25/2023 7:13 am CLINICAL HISTORY: CHEST PAIN COMPARISON: Chest For Pe Angio dated 08/11/2022; Abdomen Pelvis W Contrast dated 08/11/2022 TECHNIQUE: CT of the chest, abdomen, and pelvis was performed. All CT scans are performed using dose optimization technique as appropriate and may include automated exposure control or mA/KV adjustment according to patient size. FINDINGS: Thorax: Chest Wall: No abnormal mass Lungs: Enlarging pulmonary nodules bilaterally likely reflecting metastatic disease. The largest nodu le in the right lung for example measures 5.5 cm and has a cavitary component. The largest nodule in the left lung is present in the lingula measures 3.5 cm. Emphysema. Pleura: No effusions or pneumothorax. Ange/Mediastinum: Small to moderate hiatal hernia. Aorta/Pulmonary Arteries: Unremarkable Heart: Normal size. Abdomen/Pelvis: Liver: Liver lesions identified including an area of vague hypoattenuation in the hepatic dome measur ing over 5 cm likely reflecting metastatic disease. Biliary: No biliary ductal dilatation. Stomach: No significant focal abnormality. Duodenum: No significant focal abnormality. Pancreas: No significant abnormality. Spleen: No significant abnormality. Adrenal: No suspicious lesions. Kidney/ureter: No hydronephrosis. Nonobstructing stone in lower pole right kidney. Retroperitoneum: No retroperitoneal adenopathy. Vascular: No aneurysm. Bowel: Diverticulosis. No evidence of acute diverticulitis.. Peritoneum: Fat containing right inguinal hernia. Bladder: Grossly unremarkable. Reproductive: No adnexal masses. Bones: No acute fracture. Multilevel degenerative changes are present in the spine. Other: n/a IMPRESSION: 1. Progression of metastatic disease in the lung with enlarging pulmonary nodules compar ed with 08/11/2022, the most recent prior in our system. No other acute process identified in the [address]. 2. No acute intra-abdominal abnormality. 3. Hepatic metastatic disease which has progressed since 08/11/2022. 4. Other incidental findings as noted above.
[2023-10-25 07:33] LABS: Albumin 3.2 g/dL (3.4-5.0); Bilirubin Direct 0.2 mg/dL (0-0.2); Bilirubin Indirect, Calculated 0.4 mg/dL (0.2-0.8); Bilirubin Total 0.6 mg/dL (0.2-1.0); Magnesium 2.4 mg/dL (1.6-2.4); Potassium 3.9 mEq/L (3.5-5.1); Protein, Total 7.8 g/dL (6.4-8.2); Troponin High Sensitivity 8.1 pg/mL (<58.9)
--- NOTE | 2023-10-25 07:40 | ER ---
Nurse's Notes [facility] Name: Farhad Johnson Age: 58 yrs Sex: Male : 1965 Arrival Date: 10/25/2023 Time: 06:07 Bed 11 Private MD: Diagnosis: Cancer related pain, chronic pain, metastatic colon cancer Presentation: 10/25 06:15 Chief complaint: Patient states: chest pain of 10 with SOB,onset 0200 this AM with pf1 lower back pain,onset 4 days. Patient stated is currently a hospice patient for Stage 4 colon cancer that has metastasis to his liver and lungs. 06:15 Coronavirus screen: Vaccine status: Patient reports being unvaccinated. Client denies pf1 travel out of the [place] in the last 14 days. At this time, the client does not indicate any symptoms associated with coronavirus-19. Ebola Screen: Patient negative for fever greater than or equal to 101.5 degrees Fahrenheit, and additional compatible Ebola Virus Disease symptoms. Initial Sepsis Screen: Does the patient meet any 2 criteria? RR > 20 per min. No. Patient's initial sepsis screen is negative. Does the patient have a suspected source of infection? No. Patient's initial sepsis screen is negative. Risk Assessment: Do you want to hurt yourself or someone else? Patient reports no desire to harm self or others. 06:15 Method Of Arrival: Wheelchair pf1 06:15 Acuity: CARIDAD 2 pf1 07:30 Onset of symptoms was October 25, 2023. ph Historical: - Allergies: 06:53 PENICILLINS; pf1 - PMHx: 06:53 COLON CA; liver cancer; Lung Cancer; pf1 - PSHx: 06:53 top lobe LEFT lung removed; pf1 06:54 right arm; pf1 - Immunization history:: Adult Immunizations not up to date, Client reports having NOT received the Covid vaccine. Last tetanus immunization: < 10 years ago Flu vaccine is not up to date. - Social history:: Smoking status: Patient reports the use of cigarette tobacco products, denies chronic smoking, but will smoke occasionally, Patient/guardian denies using alcohol, street drugs. - Family history:: not pertinent. Screenin:28 [facility] ED Fall Risk Assessment (Adult) History of falling in the last 3 months, ph including since admission No falls in past 3 months (0 pts) Confusion or Disorientation No (0 pts) Intoxicated or Sedated No (0 pts) Impaired Gait No (0 pts) Mobility Assist Device Used No (0 pt) Altered Elimination No (0 pt) Score/Fall Risk Level 0 - 2 = Low Risk Oriented to surroundings, Maintained a safe environment, Provided non-skid footwear, Hourly rounding (assess needs \T\ fall precautionary measures) done. Abuse screen: Denies threats or abuse. Has been threatened or abused. Nutritional screening: No deficits noted. Tuberculosis screening: No symptoms or risk factors identified. Assessment: 07:29 Pain: Pain began. ph 08:05 Reassessment: left voicemail with patients stating he is ready to be picked up. kc6 Vital Signs: 06:15 BP 161 / 109; Pulse 81; Resp 28; Temp 97.5; Pulse Ox 97% on R/A; Weight 106.59 kg; pf1 Height 6 ft. 0 in. ; Pain 10/10; 07:30 BP 147 / 87; Pulse 76; Resp 14; Pulse Ox 98% on NC; ph 06:15 Body Mass Index 31.87 (106.59 kg, 182.88 cm) pf1 06:15 Pain Scale: Adult pf1 ED Course: 06:09 Patient arrived in ED. [email or web address] 06:18 Talon Billings MD is Attending Physician. sp4 06:53 Triage completed. pf1 07:04 Inserted saline lock: 22 gauge in left hand, using aseptic technique. Blood collected. oe 07:05 Troponin HS Sent. oe 07:05 PT-INR Sent. oe 07:05 NT PRO-BNP Sent. oe 07:05 Magnesium Sent. oe 07:05 LFT's Sent. oe 07:05 CBC with Diff Sent. oe 07:05 Basic Metabolic Panel Sent. oe 07:08 Attending Physician role handed off by Talon Billings MD sp3 07:08 Santiago Bazzi MD is Attending Physician. sp3 07:15 CT Chest Abdomen Pelvis W/O Contrast In Process Unspecified. EDMS 07:27 Ada Cat, RN is Primary Nurse. ph 07:29 Oxygen administration via nasal cannula. ph 07:29 Arm band placed on. ph 07:29 Patient has correct armband on for positive identification. Bed in low position. Call ph light in reach. Side rails up X 1. Client placed on continuous cardiac and pulse oximetry monitoring. NIBP monitoring applied. Door closed. Noise minimized. Warm blanket given. 07:41 XRAY Chest (1 view) In Process Unspecified. EDMS Administered Medications: 07:21 Drug: NS 0.9% IV 1000 ml IV at 125 ml/hr continuous Route: IV; Rate: 125 ml/hr; Site: kc left wrist; 07:22 Drug: HYDROmorphone IVP 2 mg IVP once Route: IVP; Site: left wrist; kc6 08:05 Follow up: Response: No adverse reaction; Pain is decreased; RASS: Alert and Calm (0) kc6 07:22 Drug: Ondansetron IVP 4 mg IVP once; over 2 minutes Route: IVP; Site: left wrist; kc6 08:06 Follow up: Response: No adverse reaction kc6 07:38 Not Given (Dose changedd): hydromorphone2 mg IVP once sp3 07:52 Drug: HYDROmorphone IVP 1 mg IVP once Route: IVP; Site: left wrist; kc6 Medication: 07:29 VIS not applicable for this client. ph Outcome: 07:40 Discharge ordered by . sp3 08:25 Patient left the ED. iw Signatures: Dispatcher [employer] EDMS Eleni Morejon, RN Ada Bhatia RN RN Mark Ramírez Setul, MD MD sp3 Claudette Kenney Kaitlyn, RN RN [email or web address] Gia Narayanan RN RN pf1 Talon Billings MD MD sp4 Corrections: (The following items were deleted from the chart) 06:55 06:53 PMHx: Lung Cancer; pf1 pf1 06:55 06:54 PSHx: left arm; pf1 pf1
--- NOTE | 2023-10-25 07:40 | EDPHYS ---
Physician Documentation [facility] Name: Farhad Johnson Age: 58 yrs Sex: Male : 1965 Arrival Date: 10/25/2023 Time: 06:07 Bed 11 Private MD: ED Physician Santiago Bazzi HPI: 10/25 06:18 This 58 yrs old Male presents to ER via Unassigned with complaints of Chest sp4 Pain, Shortness Of Breath. 06:41 Allergies: PENICILLINS; PMHx: COLON CA; liver cancer; Lung Cancer; PSHx: top lobe LEFT sp4 lung removed;. 06:46 58-year-old male who is currently on hospice presents with moderate to severe back pain sp4 starting 3 days associated with acute onset chest pain this morning described as pressure with shortness of breath. Pain is moderate to severe. Patient states most severe pain is in the lower spine. Patient has history of colon cancer metastatic to liver and lungs. Patient is currently on pain management at home with hydrocodone. He is not on any cancer care he in fact he is currently on hospice care. . Historical: - Allergies: 06:53 PENICILLINS; pf1 - PMHx: 06:53 COLON CA; liver cancer; Lung Cancer; pf1 - PSHx: 06:53 top lobe LEFT lung removed; pf1 06:54 right arm; pf1 - Immunization history:: Adult Immunizations not up to date, Client reports having NOT received the Covid vaccine. Last tetanus immunization: < 10 years ago Flu vaccine is not up to date. - Social history:: Smoking status: Patient reports the use of cigarette tobacco products, denies chronic smoking, but will smoke occasionally, Patient/guardian denies using alcohol, street drugs. - Family history:: not pertinent. ROS: 06:46 Constitutional: Negative for fever, chills, and weight loss, positive back pain, sp4 positive shortness of breath, positive chest pain 06:46 All other systems are negative, Exam: 06:46 Constitutional: This is a well developed, well nourished patient who is awake, alert, sp4 and in no acute distress. Head/Face: Normocephalic, atraumatic. Eyes: Pupils equal round and reactive to light, extra-ocular motions intact. Lids and lashes normal. Conjunctiva and sclera are not injected. Cornea within normal limits. Periorbital areas with no swelling, redness, or edema. ENT: Nares patent. No nasal discharge, no septal abnormalities noted. Tympanic membranes are normal and external auditory canals are clear. Oropharynx with no redness, swelling, or masses, exudates, or evidence of obstruction, uvula midline. Mucous membranes moist. Neck: Trachea midline, no thyromegaly or masses palpated, and no cervical lymphadenopathy. Supple, full range of motion without nuchal rigidity, or vertebral point tenderness. Chest/axilla: Normal chest wall appearance and motion. Nontender with no deformity. No lesions are appreciated. Cardiovascular: Regular rate and rhythm with a normal S1 and S2. No gallops, murmurs, or rubs. Normal PMI, no JVD. No pulse deficits. Respiratory: Lungs have equal breath sounds bilaterally, clear to auscultation and percussion. No rales, rhonchi or wheezes noted. No increased work of breathing, no retractions or nasal flaring. Abdomen/GI: Soft, non-tender, with normal bowel sounds. No distension or tympany. No guarding or rebound. No evidence of tenderness throughout. Back: No spinal tenderness. No costovertebral tenderness. Skin: Warm, dry with normal turgor. Normal color with no rashes, no lesions, and no evidence of cellulitis. MS/ Extremity: Pulses equal, no cyanosis. Neurovascular intact. Full, normal range of motion. Neuro: Awake and alert, GCS 15, oriented to person, place, time, and situation. Cranial nerves II-XII grossly intact. Motor strength 5/5 in all extremities. Sensory grossly intact. Psych: Awake, alert, with orientation to person, place and time. Behavior, mood, and affect are within normal limits 06:46 ECG was reviewed by the Attending Physician. EKG time 0 624, normal sinus rhythm at sp4 rate of 76. Vital Signs: 06:15 BP 161 / 109; Pulse 81; Resp 28; Temp 97.5; Pulse Ox 97% on R/A; Weight 106.59 kg; pf1 Height 6 ft. 0 in. ; Pain 10/10; 07:30 BP 147 / 87; Pulse 76; Resp 14; Pulse Ox 98% on NC; ph 06:15 Body Mass Index 31.87 (106.59 kg, 182.88 cm) pf1 06:15 Pain Scale: Adult pf1 MDM: 06:23 Patient medically screened. sp4 07:26 Data reviewed: vital signs, nurses notes, lab test result(s), radiologic studies. ED sp3 course: Patient signed out to me by night physician. Patient is a 58-year-old male with metastatic colon cancer now with chest and back pain. Patient is being assessed for any spinal fracture or other critical pathology. CT scan is pending along with laboratory values. Patient is on hospice and when asked disposition, he request going home after pain control and workup is complete. Will reassess at that time and disposition accordingly.. 07:39 ED course: Patient laboratory values are within normal limits with exception of LFTs. sp3 CT scan demonstrates progression of cancer nodules relative to 2021 scan but demonstrates no fractures of any type whatsoever. Patient is feeling better with IV pain control. Will give 1 additional dose and safely discharge patient home with his significant other.. 10/25 06:45 Order name: Basic Metabolic Panel; Complete Time: 07:35 10/25 06:45 Order name: CBC with Diff; Complete Time: 07:35 10/25 06:45 Order name: LFT's; Complete Time: 07:35 10/25 06:45 Order name: Magnesium; Complete Time: 07:35 10/25 06:45 Order name: NT PRO-BNP; Complete Time: 07:35 10/25 06:45 Order name: PT-INR; Complete Time: 07:35 10/25 06:45 Order name: Troponin HS; Complete Time: 07:35 10/25 06:45 Order name: XRAY Chest (1 view); Complete Time: 08:13 10/25 06:45 Order name: CT Chest Abdomen Pelvis W/O Contrast; Complete Time: 07:35 10/25 06:45 Order name: EKG; Complete Time: 06:46 10/25 06:45 Order name: Cardiac monitoring; Complete Time: 07:09 10/25 06:45 Order name: EKG - Nurse/Tech; Complete Time: 07:09 10/25 06:45 Order name: IV Saline Lock; Complete Time: 07:05 10/25 06:45 Order name: Labs collected and sent; Complete Time: 07:05 sp4 10/25 06:45 Order name: O2 Per Protocol; Complete Time: 07:09 sp4 10/25 06:45 Order name: O2 Sat Monitoring; Complete Time: 07: sp4 EC:46 Rate is 76 beats/min. Rhythm is regular, Normal Sinus Rhythm. QRS Presho is Normal. TN sp4 interval is normal. QRS interval is normal. QT interval is normal. No Q waves. T waves are Normal. No ST changes noted. Clinical impression: Normal ECG. Interpreted by me. Reviewed by me. Administered Medications: 07:21 Drug: NS 0.9% IV 1000 ml IV at 125 ml/hr continuous Route: IV; Rate: 125 ml/hr; Site: kc6 left wrist; 07:22 Drug: HYDROmorphone IVP 2 mg IVP once Route: IVP; Site: left wrist; 6 08:05 Follow up: Response: No adverse reaction; Pain is decreased; RASS: Alert and Calm (0) [facility] 07:22 Drug: Ondansetron IVP 4 mg IVP once; over 2 minutes Route: IVP; Site: left wrist; 6 08:06 Follow up: Response: No adverse reaction kc6 07:38 Not Given (Dose changedd): hydromorphone2 mg IVP once sp3 07:52 Drug: HYDROmorphone IVP 1 mg IVP once Route: IVP; Site: left wrist; kc6 Disposition Summary: 10/25/23 07:40 Discharge Ordered Notes: Location: Home sp3 Condition: Stable sp3 Diagnosis - Cancer related pain, chronic pain, metastatic colon cancer sp3 Followup: sp3 - With: Private Physician - When: Upon discharge from the Emergency Department - Reason: Continuance of care Discharge Instructions: - Discharge Summary Sheet sp3 - Managing Cancer Pain sp3 Forms: - Medication Reconciliation Form sp3 - Thank You Letter sp3 - Antibiotic Education sp3 - Prescription Opioid Use sp3 - Patient Portal Instructions sp3 - Leadership Thank You Letter sp3 Signatures: Dispatcher [employer] Santiago Merrill MD MD sp3 Latosha Gomez RN RN kc6 Gia Narayanan RN RN pf1 Talon Billings MD MD sp4 Corrections: (The following items were deleted from the chart) 06:55 06:53 PMHx: Lung Cancer; pf1 pf1 06:55 06:54 PSHx: left arm; pf1 pf1
--- NOTE | 2023-10-25 08:12 | RAD REPORT ---
EXAM DESCRIPTION: RAD - Chest Single View - 10/25/2023 7:39 am CLINICAL HISTORY: CHEST PAIN COMPARISON: Chest Single View dated 07/07/2022; Chest Single View dated 07/07/2022; Chest Single View dated 06/17/2022; Chest Single View dated 11/19/2021; Chest Abd Pelvis Wo Con dated 10/25/2023 FINDINGS: Lines: None. Lungs: Mild irregular opacities present in the lung bases bilaterally. Pleural: No significant pleural effusions or pneumothorax. Cardiac: The heart size is within normal limits. Mediastinum: Within normal limits. Bones: No acute fractures. Other: None IMPRESSION: Irregular airspace disease in the lung bases corresponding with pulmonary nodules as dem onstrated on the same-day chest CT. No definite acute process identified
[2023-10-25 09:57] VITALS: BP 147/87; TEMP 97.5; O2SAT 98
--- NOTE | 2023-10-25 17:48 | EKG ---
Test Date: 2023-10-25 Test Time: 06:24:04 Pathology Tech: FERMIN MEASUREMENT RESULTS: Intervals: Rate: 76 WA: 164 QRSD: 86 QT: 384 QTc: 432 [place]: P: 62 WA: 164 QRS: 79 T: 13 INTERPRETIVE STATEMENTS: Normal sinus rhythm Normal ECG Compared to ECG 11/02/2022 12:56:48 Atrial premature complex(es) no longer present Right-axis deviation no longer present Electronically Signed On 10-25-23 17:47:47 [employer] by Diony Putnam
== END ==
LOC: ER 06:07
DX: G89.3 Neoplasm related pain (acute) (chronic) (principal); C78.7 Secondary malignant neoplasm of liver and intrahepatic bile duct; C78.00 Secondary malignant neoplasm of unspecified lung; C18.9 Malignant neoplasm of colon, unspecified; F17.210 Nicotine dependence, cigarettes, uncomplicated; Z88.0 Allergy status to penicillin; Z28.310 Unvaccinated for COVID-19
CPT/HCPCS: 93005; 85025; 80048; 36415; 83735; 85610; 80076; 84484; 83880; 71250; 74176; 71045; 96375; 96374; 99284; J1170 ×2; J2405; J7030

== ENCOUNTER 2025-05-15 17:10 | Emergency (ER) | payer OTHER, SELFPAY ==
[2025-05-15 17:35] LABS: Hematocrit 30.3 % (39.6-49.0); Hemoglobin 10.4 g/dL (13.6-17.9); MCH 30.8 pg (27.0-35.0); MCHC 34.2 g/dL (32.0-36.0); MCV 89.9 fL (80-100); MPV 7.8 fL (7.6-11.3); RBC Red Blood Cell Count 3.37 M/uL (4.33-5.43); White Blood Count 25.20 thou/uL (4.3-10.9)
--- NOTE | 2025-05-15 17:40 | ER ---
Nurse's Notes [facility] Name: Farhad Johnson Age: 60 yrs Sex: Male : 1965 Arrival Date: 05/15/2025 Time: 17:10 Bed 3 Private MD: Diagnosis: Unspecified jaundice;Hypotension, unspecified;Metastatic Colon cancer Presentation: 05/15 17:18 Chief complaint: EMS states: Pt from home, is on hospice for lung cancer and liver ph failure, found on floor next to bed by family, was bleeding from the mouth and nose, unknown downtime, initial BP 70s systolic, IV established and fluids given, Fentanyl patch to R shoulder removed. Coronavirus screen: Vaccine status: Patient reports being unvaccinated. Ebola Screen: No symptoms or risks identified at this time. Initial Sepsis Screen: Does the patient meet any 2 criteria? No. Patient's initial sepsis screen is negative. Does the patient have a suspected source of infection? No. Patient's initial sepsis screen is negative. Risk Assessment: Do you want to hurt yourself or someone else? Patient reports no desire to harm self or others. 17:18 Method Of Arrival: EMS: [facility] 17:18 Acuity: CARIDAD 2 ph 17:42 Onset of symptoms was May 15, 2025. Triage Assessment: 17:24 General: Appears in no apparent distress. emaciated, Behavior is drowsy, listless, ph quiet. Pain: Unable to use pain scale. Does not appear to understand pain scale. Neuro: Level of Consciousness is awake, Oriented to none. Cardiovascular: Capillary refill is sluggish. Respiratory: Airway is patent Respiratory effort is even, unlabored. Derm: Skin is jaundiced. Historical: - Allergies: 17:22 PENICILLINS; ph - PMHx: 17:22 COLON CA; liver cancer; Lung Cancer; ph - PSHx: 17:22 right arm; top lobe LEFT lung removed; ph - Immunization history:: Adult Immunizations unknown. - Infectious Disease History:: Denies. - Social history:: Smoking status: unknown. Screenin:31 [facility] ED Fall Risk Assessment (Adult) History of falling in the last 3 months, ph including since admission Yes- fall prone (multiple falls) (3 pts) Confusion or Disorientation Yes (5 pts) Intoxicated or Sedated No (0 pts) Impaired Gait Yes (1 pt) Mobility Assist Device Used Yes (1 pt) Altered Elimination Yes (1 pt) Score/Fall Risk Level 3 or more points = High Risk Oriented to surroundings, Maintained a safe environment, Hourly rounding (assess needs \T\ fall precautionary measures) done, Used ambulatory aids as needed (educated on \T\ assisted with). Abuse screen: Denies threats or abuse. Denies injuries from another. Nutritional screening: No deficits noted. Tuberculosis screening: No symptoms or risk factors identified. Assessment: 17:33 General: SEE TRIAGE ASSESSMENT. ph 17:41 Reassessment: Family at bedside states that they do not want any interventions done, ph only comfort measures, also state that they would like him to be transported home. 17:41 Reassessment: Pt family declines treatment and wishes to take him home. Spoke to answering service Yaneth with [facility] [phone], nurse Yaneth will return call. 18:45 Reassessment: [facility] at bedside, pt transported back home. ph Vital Signs: 17:18 BP 121 / 104; Pulse 100; Resp 14; Pulse Ox 98% on R/A; ph 17:31 Temp 97.6(A); ph 17:32 BP 80 / 54; Pulse 98; Resp 14; Pulse Ox 100% on 2 lpm NC; ph 18:25 BP 82 / 56; Pulse 94; Resp 18; Temp 97.4; Pulse Ox 99% on 2 lpm NC; ph ED Course: 17:11 Patient arrived in ED. iw 17:17 Primitivo Abarca DO is Attending Physician. ms3 17:18 Ada Cat, RN is Primary Nurse. ph 17:22 Triage completed. ph 17:23 Arm band placed on Patient placed in an exam room, on a stretcher, on school bus monitor, ph on pulse oximetry. 17:23 Initial lab(s) drawn, by ED staff, sent to lab. Maintain EMS IV. Dressing intact. Site ph clean \T\ dry. Gauge \T\ site: 20 RAC. Flushed with 10 mL NS. Inserted saline lock: 20 gauge in left antecubital area, using aseptic technique. Blood collected. Flushed with 10 mL NS. 17:25 Basic Metabolic Panel Sent. ph 17:25 CBC with Diff Sent. ph 17:25 Type And Screen Sent. ph 17:30 Accessed peripheral vein via ultrasound, utilizing dynamic ultrasound technique using hb per hospital protocol. Clean \T\ dry. Dressing intact. Good blood return. Flushes easily. 20g LAC. 17:32 Patient has correct armband on for positive identification. Bed in low position. Call ph light in reach. Side rails up X2. compliance monitor on. Pulse ox on. NIBP on. Noise minimized. Warm blanket given. Pillow given. 17:42 No provider procedures requiring assistance completed. ph Administered Medications: 17:25 Drug: NS 0.9% IV 1000 ml IV at 1 bolus Per protocol; to be given as a bolus over 60 ph minutes Route: IV; Rate: 1 bolus; Site: left antecubital; 18:46 Follow up: Response: No adverse reaction; IV Status: Completed infusion; IV Intake: ph 1000ml 18:05 Drug: fentaNYL (PF) IVP 50 mcg IVP once Route: IVP; Site: left antecubital; ph 18:46 Follow up: Response: No adverse reaction ph Medication: 17:31 VIS not applicable for this client. ph Intake: 18:46 IV: 1000ml; Total: 1000ml. ph Outcome: 17:39 Discharge ordered by ms3 18:46 Patient left the ED. ph Signatures: Eleni Morejon RN RN Ada Cat RN RN Radha Barker, Primitivo Zamarripa RN, DO DO ms3
--- NOTE | 2025-05-15 17:40 | EDPHYS ---
Physician Documentation [facility] Name: Farhad Johnson Age: 60 yrs Sex: Male : 1965 Arrival Date: 05/15/2025 Time: 17:10 Bed 3 Private MD: ED Physician Primitivo Abarca HPI: 05/15 17:42 This 60 yrs old Male presents to ER via EMS with complaints of Blood Pressure Problem. ms3 17:42 60-year-old male with past medical history of colon cancer, liver cancer, lung cancer ms3 presents to the emergency department via [facility] status post fall from bed. EMS states on their arrival patient had bleeding from his nose and mouth which have stopped. EMS noted patient to be jaundiced and hypotensive. EMS states patient is currently on hospice. Patient has altered mental status and is noncontributory to the HPI. Historical: - Allergies: 17:22 PENICILLINS; ph - PMHx: 17:22 COLON CA; liver cancer; Lung Cancer; ph - PSHx: 17:22 right arm; top lobe LEFT lung removed; ph - Immunization history:: Adult Immunizations unknown. - Infectious Disease History:: Denies. - Social history:: Smoking status: unknown. ROS: 17:42 Unable to obtain ROS due to altered mental status, ms3 Exam: 17:42 Constitutional: The patient appears obviously ill, ms3 17:42 Head/face: Dried blood on lips and nares. 17:42 Eyes: Periorbital structures: appear normal, Pupils: equal, round, and reactive to light and accomodation, Sclera: icterus, is present, 17:42 Cardiovascular: Rate: tachycardic, Rhythm: regular, Pulses: weak, Heart sounds: normal, normal S1and S2, 17:42 Abdomen/GI: Inspection: abdomen appears normal, Bowel sounds: normal, in all quadrants, 17:42 Skin: Appearance: jaundice, Vital Signs: 17:18 BP 121 / 104; Pulse 100; Resp 14; Pulse Ox 98% on R/A; ph 17:31 Temp 97.6(A); ph 17:32 BP 80 / 54; Pulse 98; Resp 14; Pulse Ox 100% on 2 lpm NC; ph 18:25 BP 82 / 56; Pulse 94; Resp 18; Temp 97.4; Pulse Ox 99% on 2 lpm NC; ph MDM: 17:17 Medical Screening Exam initiated ms3 17:42 Differential Diagnosis . ms3 18:23 Data reviewed: vital signs, nurses notes, and as a result, I will discharge patient. ms3 Consideration of Admission/Observation Patient discharged back to hospice. Historians other than the Patient: EMS: [facility]. Spouse/Significant Other: Patient's , Melissa- she states patient is on hospice and would do not want pressors, central lines, intubation, life-sustaining measures performed. Discussed obtaining CT head and neck with patient's . Patient's states no interventions would be performed if imaging revealed injuries and prefers imaging to not be performed. She would like patient to be transferred back home so he can be with his dogs.. ED course: Discussed physical exam findings and plan with patient's . She does not wish for patient to have life-sustaining measures performed. She does not wish for him to receive pressors, imaging, labs. She states he is currently on hospice and has metastatic cancer and he would want to be at home with his dogs. She wishes for patient to be transferred back to his house on hospice.. 05/15 17:17 Order name: Basic Metabolic Panel; Complete Time: 18:26 ms3 05/15 17:17 Order name: CBC with Diff ms3 05/15 17:17 Order name: Type And Screen; Complete Time: 18:26 ms3 05/15 17:17 Order name: LFT's; Complete Time: 18:26 ms3 05/15 17:45 Order name: Manual Differential EDMS 05/15 17:17 Order name: Labs collected and sent; Complete Time: 17:25 ms3 Administered Medications: 17:25 Drug: NS 0.9% IV 1000 ml IV at 1 bolus Per protocol; to be given as a bolus over 60 ph minutes Route: IV; Rate: 1 bolus; Site: left antecubital; 18:46 Follow up: Response: No adverse reaction; IV Status: Completed infusion; IV Intake: ph 1000ml 18:05 Drug: fentaNYL (PF) IVP 50 mcg IVP once Route: IVP; Site: left antecubital; ph 18:46 Follow up: Response: No adverse reaction ph Disposition: 18:26 Chart complete. ms3 Disposition Summary: 05/15/25 17:39 Discharge Ordered Notes: Location: Home ms3 Condition: Stable ms3 Diagnosis - Unspecified jaundice ms3 - Hypotension, unspecified ms3 - Metastatic Colon cancer ms3 Followup: ms3 - With: Private Physician - When: 1 - 2 days - Reason: Discharge Instructions: - Discharge Summary Sheet ms3 - Hypotension ms3 - Jaundice, Adult ms3 Forms: - SBAR form ph - Medication Reconciliation Form ms3 - Antibiotic Education ms3 - Prescription Opioid Use ms3 - Patient Portal Instructions ms3 - Leadership Thank You Letter ms3 Signatures: Dispatcher [employer] EDAda Constantino, RN RN ph Primitivo Abarca DO DO ms3 Corrections: (The following items were deleted from the chart) 17:18 17:18 BASIC METABOLIC PANEL+C.LAB.BRZ ordered. EDMS EDMS 17:18 17:18 CBC+H.LAB.BRZ ordered. EDMS EDMS 17:18 17:18 TYPE AND SCREEN+BB.LAB.BRZ ordered. EDMS EDMS 17:18 17:18 Head C Spine MPR Wo Con+CT.RAD.BRZ ordered. EDMS EDMS 17:18 17:18 Chest Single View+RAD.RAD.BRZ ordered. EDMS EDMS 17:18 17:18 HEPATIC FUNCTION+C.LAB.BRZ ordered. EDMS EDMS
[2025-05-15] MEDS ORDERED: FENTANYL CITR 100 MCG/2 ML ONE (17:55)
[2025-05-15 18:08] LABS: ALT/SGPT 124.0 U/L (16-61); Albumin 1.5 g/dL (3.4-5.0); Albumin/Globulin Ratio 0.3 (1.1-1.8); Alkaline Phosphatase 1075.0 U/L (45-117); Anion Gap 24.9 mEq/L (5.0-15.0); BUN Blood Urea Nitrogen 37.0 mg/dL (7-18); Bilirubin Indirect, Calculated 3.2 mg/dL (0.2-0.8); Globulin 4.3 g/dL (2.3-3.5); Glucose Level 101.0 mg/dL (74-106)
[2025-05-15 18:09] LABS: AST/SGOT 281.0 U/L (15-37); Potassium 3.9 mEq/L (3.5-5.1)
[2025-05-15 18:35] LABS: Blood Morphology Comment NOTED (NOT SEEN); Differential Total Cells Count 100; Segmented Neutrophils 84 % (40-80); Target Cells FEW
[2025-05-15 19:38] VITALS: BP 82/56; TEMP 97.4; O2SAT 99
== END 2025-05-15 18:46 | disposition home or self-care (01) ==
LOC: ER 17:10
DX: R17 Unspecified jaundice (principal); I95.9 Hypotension, unspecified; C18.9 Malignant neoplasm of colon, unspecified
CPT/HCPCS: 36415; 80048; 80076; 85025; 86850; 86900; 86901; 96361; 96374; 99285; J3010